=== PATIENT | male | born 1950 | race Caucasian/White ===

== ENCOUNTER 2016-05-07 13:44 | Inpatient (IN) | payer MEDICARE, OTHER ==
[~2016-05-07] VITALS: Ht 182.9 cm; Wt 92.5 kg
[~2016-05-07 13:44] MED LIST: DOXE25CA2 PO; LISI10TA3 PO; METF1000 PO; MORP1TAB24 PO; NOVO7030P2 SQ
[2016-05-07 13:46] VITALS: BP 163/97; PULSE 121; RESP 20; TEMP 97.9; O2SAT 94
[2016-05-07 13:51] VITALS: BP 163/97; PULSE 115; RESP 18; O2SAT 94
[2016-05-07] MEDS ORDERED: SODIUM CHLOR 0.9% 1000 ML INJ 1,000 ML IV ONE (14:00)
[2016-05-07] MEDS ORDERED: SODIUM CHLORIDE 0.9% FLUSH 5 ML FLUSH IVF PRN (14:00)
[2016-05-07 14:17] LABS: BASOPHIL # 0.1 TH/MM3 (0-0.2); BASOPHIL % 1.1 % (0.0-2.0); EOSINOPHIL # 0.1 TH/MM3 (0-0.4); EOSINOPHIL % 0.9 % (0.0-4.0); HEMO FLAGS DIFF FINAL; LYMPH % 18.2 % (9.0-44.0); LYMPHOCYTE # 2.2 TH/MM3 (1.0-4.8); MEAN CELL VOLUME 96.7 FL (80.0-100.0); MEAN CORPUSCULAR HEMOGLOBIN 31.6 PG (27.0-34.0); MEAN CORPUSCULAR HGB CONC 32.6 % (32.0-36.0); MONO % 6.5 % (0.0-8.0); NEUT % 73.3 % (16.0-70.0); PLATELET COUNT 326 TH/MM3 (150-450); RED BLOOD COUNT 4.65 MIL/MM3 (4.50-5.90); RED CELL DISTRIBUTION WIDTH 14.2 % (11.6-17.2); WHITE BLOOD COUNT 12.3 TH/MM3 (4.0-11.0)
--- NOTE | 2016-05-07 14:18 | PD ---
HPI Chief Complaint: Psychiatric Symptoms Time Seen by Provider: 13:50 Travel History International Travel<30 days: No Contact w/Intl Traveler<30days: No Traveled to known affect area: No History of Present Illness HPI Patient is a 66-year-old male who presents to emergency room for psychiatric evaluation. As per patient, he was recently diagnosed with skin cancer and a heart condition. Patient reports that he has not been able to follow-up with the microfilm equipment inspector as he can't afford it. Reports that he is very depressed and has thoughts of hurting himself with no active plans for suicide. Patient denies use of drugs/alcohol. Denies hx of SI attempts in the past. Patient did call his psychiatrist today as he confessed his suicidal ideations to him. Patient's psychiatrist called police and police had patient be brought to ER for psychiatric evaluation. Patient was placed under Ribera act by police officers. PFSH Past Medical History Autoimmune Disease: Yes (RHEUMATOID ARTHRITIS) Bipolar Disorder: Yes Anxiety: Yes Depression: Yes Cardiovascular Problems: Yes High Cholesterol: Yes Diabetes: Yes (INSULIN) Patient Takes Glucophage: Yes Diminished Hearing: No Hypertension: Yes Musculoskeletal: Yes (CHRONIC RIGHT SHOULDER PAIN) Neurologic: Yes (NEUROPATHY) Tetanus Vaccination: Unknown Influenza Vaccination: Yes Past Surgical History Surgical History: No Previous Surgery Social History Alcohol Use: No Tobacco Use: Yes (1 PACK PER DAY) Substance Use: No Allergies-Medications (Allergen,Severity, Reaction): Coded Allergies: Aspirin (Verified Allergy, Severe, RASH & DECREASED BP, 05/07/16) Motrin (Verified Allergy, Severe, DECREASED BLOOD PRESSURE, 05/07/16) Penicillin (Verified Allergy, Severe, PASSED OUT, 05/07/16) Oily Fish (Verified Allergy, Unknown, 05/07/16) Oxycodone (Verified Adverse Reaction, Unknown, NAUSEA/VOMITING, 05/07/16) Pt denies allergies to this medication. States that it makes him feel "stupid". However, this medication was previously added as an allergy in EMR. Reported Meds & Prescriptions Reported Meds & Active Scripts Active Reported Doxepin (Doxepin HCl) 25 Mg Cap 25 Mg PO HS Metformin (Metformin HCl) 1,000 Mg Tab 1,000 Mg PO BIDPC With meals Lisinopril 10 Mg Tab 10 Mg PO DAILY Novolin 70-30 Inj (Insulin Human Isoph/Insulin Regular) 1,000 Unit/10 Ml Vial 50 Units SQ BID Morphine ER (Morphine Sulfate) 15 Mg Tab 15 Mg PO BID Review of Systems General / Constitutional: No: Fever Eyes: No: Visual changes HENT: No: Headaches Cardiovascular: No: Chest Pain or Discomfort Respiratory: No: Shortness of Breath Gastrointestinal: No: Abdominal Pain Genitourinary: No: Dysuria Musculoskeletal: No: Pain Skin: No Rash Neurologic: No: Weakness Psychiatric: Positive: Depression, Suicidal Ideations Endocrine: No: Cold Intolerance, Polydipsia Hematologic/Lymphatic: No: Easy Bruising Physical Exam Narrative GENERAL: nad SKIN: Warm and dry. HEAD: Atraumatic. Normocephalic. ENT: No nasal bleeding or discharge. Mucous membranes pink and moist. NECK: Trachea midline. No JVD. CARDIOVASCULAR: Regular rate and rhythm. No murmur appreciated. RESPIRATORY: No accessory muscle use. Clear to auscultation. Breath sounds equal bilaterally. GASTROINTESTINAL: Abdomen soft, non-tender, nondistended. Hepatic and splenic margins not palpable. MUSCULOSKELETAL: No obvious deformities. No clubbing. No cyanosis. No edema. NEUROLOGICAL: Awake and alert. No obvious cranial nerve deficits. Motor grossly within normal limits. Normal speech. PSYCHIATRIC: Patient is depressed, very anxious on exam Data Data Last Documented VS Vital Signs Date Time Temp Pulse Resp B/P Pulse Ox O2 Delivery O2 Flow Rate FiO2 05/07/16 13:51 115 18 05/07/16 13:51 163/97 94 Room Air 05/07/16 13:46 97.9 Orders Complete Blood Count With Diff (05/07/16 13:50) Comprehensive Metabolic Panel (05/07/16 13:50) Drug Screen, Random Urine (05/07/16 13:50) Iv Access Insert/Monitor (05/07/16 13:50) Psych Screen (05/07/16 13:50) Sodium Chloride 0.9% Flush (Ns Flush) (05/07/16 14:00) Sodium Chlor 0.9% 1000 Ml Inj (Ns 1000 M (05/07/16 14:00) Bedside Glucose DMITRI.AC&HS (05/07/16 15:18) Labs Laboratory Tests Test 05/07/16 13:55 White Blood Count 12.3 TH/MM3 Red Blood Count 4.65 MIL/MM3 Hemoglobin 14.7 GM/DL Hematocrit 45.0 % Mean Corpuscular Volume 96.7 FL Mean Corpuscular Hemoglobin 31.6 PG Mean Corpuscular Hemoglobin 32.6 % Concent Red Cell Distribution Width 14.2 % Platelet Count 326 TH/MM3 Mean Platelet Volume 8.8 FL Neutrophils (%) (Auto) 73.3 % Lymphocytes (%) (Auto) 18.2 % Monocytes (%) (Auto) 6.5 % Eosinophils (%) (Auto) 0.9 % Basophils (%) (Auto) 1.1 % Neutrophils # (Auto) 9.0 TH/MM3 Lymphocytes # (Auto) 2.2 TH/MM3 Monocytes # (Auto) 0.8 TH/MM3 Eosinophils # (Auto) 0.1 TH/MM3 Basophils # (Auto) 0.1 TH/MM3 CBC Comment DIFF FINAL Differential Comment Sodium Level 135 MEQ/L Potassium Level 4.2 MEQ/L Chloride Level 103 MEQ/L Carbon Dioxide Level 21.8 MEQ/L Anion Gap 10 MEQ/L Blood Urea Nitrogen 16 MG/DL Creatinine 1.16 MG/DL Estimat Glomerular Filtration 63 ML/MIN Rate Random Glucose 307 MG/DL Calcium Level 9.1 MG/DL Total Bilirubin 0.6 MG/DL Aspartate Amino Transf 17 U/L (AST/SGOT) Alanine Aminotransferase 26 U/L (ALT/SGPT) Alkaline Phosphatase 71 U/L Total Protein 7.3 GM/DL Albumin 3.5 GM/DL [facility] Medical Decision Making Medical Screen Exam Complete: Yes Emergency Medical Condition: Yes Interpretation(s) Vital Signs Date Time Temp Pulse Resp B/P Pulse Ox O2 Delivery O2 Flow Rate FiO2 05/07/16 13:51 115 18 05/07/16 13:51 115 18 163/97 94 Room Air 05/07/16 13:46 97.9 121 20 163/97 94 Differential Diagnosis depression, anxiety, suicidal idealizations Narrative Course Patient is a 66-year-old male who presents to ER with complaints of increased depression and anxiety. Reports that she was recently diagnosed with cancer and "heart problems" and reports "I have had enough of everything." Patient reports that he feels suicidal with no active plans for suicide. will obtain screening labs Leslie Castro DO May 07, 2016 14:18
[2016-05-07 14:32] LABS: ANION GAP 10 MEQ/L (5-15); AST (GOT) 17 U/L (15-37); BICARBONATE 21.8 MEQ/L (21.0-32.0); BLOOD UREA NITROGEN 16 MG/DL (7-18); CHLORIDE 103 MEQ/L (98-107); GLOMERULAR FILTRATION RATE 63 ML/MIN (>89); POTASSIUM 4.2 MEQ/L (3.5-5.1); SODIUM (NA) 135 MEQ/L (136-145)
[2016-05-07 14:37] LABS: ALKALINE PHOSPHATASE 71 U/L (45-117); ALT (GPT) 26 U/L (12-78); TOTAL BILIRUBIN ADULT 0.6 MG/DL (0.2-1.0)
[2016-05-07 14:48] LABS: AMPHETAMINE, URINE NEG (NEG); BARBITURATES, URINE NEG (NEG); COCAINE, URINE NEG (NEG)
--- NOTE | 2016-05-07 16:22 | PD ---
History of Present Illness Chief Complaint: Psychiatric Symptoms Time Seen by Provider: 16:00 Travel History International Travel<30 Days: No Contact w/Intl Traveler<30days: No Known affected area: No Legal Status Legal Status: Ribera Act History of Present Illness: History of Present Illness 66-year-old male who presents to emergency room under a Ribera act initiated by GIOVANY for psychiatric evaluation. As per ED report the patient called his psychiatrist this morning and reported feeling suicidal. His psychiatrist, Dr. Giron called the police so that the patient could be transported to the ED. Patient is seen in main ED. Awake, alert and oriented. Dressed in hospital attire with appropriate hygiene. Affect is restricted. Speech is clear and logical. Able to engage and answers questions appropriately. Patient does not appear to be responding to internal stimuli and denies any hallucinatory process. Mood is depressed. Reports impaired sleep with multiple awakenings, decreased appetite and low energy. Patient reports suicidal ideation w plan on obtaining a gun from someone he knows. While he does not own a gun he reports he knows where to obtain one. He reports that he feels overwhelmed, hopeless and frustrated with recent medical issues. He was recently dx with skin cancer and just last week he was told he had some cardiac problems and needs to see a lens grinder apprentice. He is also reporting problems with his left knee which is preventing him from doing the things he would like to do and needs to do. He is also reporting increased financial stressors related to medical issues. As per EMR review no previous contact with [facility] [place]. He is receiving psychiatric care with Dr. Giron and reports compliance with current medication. He feels current medication is not helping him. No hx of inpatient psychiatric treatment. He denies any current substance use. PFSH Past Medical History Autoimmune Disease: Yes (RHEUMATOID ARTHRITIS) Bipolar Disorder: Yes Anxiety: Yes Depression: Yes Cardiovascular Problems: Yes High Cholesterol: Yes Diabetes: Yes (INSULIN) Patient Takes Glucophage: Yes Diminished Hearing: No Hypertension: Yes Musculoskeletal: Yes (CHRONIC RIGHT SHOULDER PAIN) Neurologic: Yes (NEUROPATHY) Tetanus Vaccination: Unknown Influenza Vaccination: Yes Past Surgical History Surgical History: No Previous Surgery Psychiatric History Psychiatric History Hx Psychiatric Treatment: No hx of inpatietn tx. Began seeing a psychiatris years ago in [place]. Has been a patietn of Dr. Giron x 1 and 1/2 year No hx of suicide attempts. History of Inpatient Treatment: No Guns or firearms in home: No Social History Born [place] 4 years. Was x 40 years. has 3 children out of the state. Little contact with them. Retired. Worked as a rolloff truck driver. Hx Alcohol Use: No Hx Tobacco Use: Yes (1 PACK PER DAY) Hx Substance Use: No Substance Use Type: Alcohol (In remote past. Quit 30 years ago.) Hx of Substance Use Treatment: No Family Psychiatric History None reported Allergies-Medications (Allergen,Severity, Reaction): Coded Allergies: Aspirin (Verified Allergy, Severe, RASH & DECREASED BP, 05/07/16) Motrin (Verified Allergy, Severe, DECREASED BLOOD PRESSURE, 05/07/16) Penicillin (Verified Allergy, Severe, PASSED OUT, 05/07/16) Oily Fish (Verified Allergy, Unknown, 05/07/16) Oxycodone (Verified Adverse Reaction, Unknown, NAUSEA/VOMITING, 05/07/16) Pt denies allergies to this medication. States that it makes him feel "stupid". However, this medication was previously added as an allergy in EMR. Reported Meds & Prescriptions Reported Meds & Active Scripts Active Reported Doxepin (Doxepin HCl) 25 Mg Cap 25 Mg PO HS Metformin (Metformin HCl) 1,000 Mg Tab 1,000 Mg PO BIDPC With meals Lisinopril 10 Mg Tab 10 Mg PO DAILY Novolin 70-30 Inj (Insulin Human Isoph/Insulin Regular) 1,000 Unit/10 Ml Vial 50 Units SQ BID Morphine ER (Morphine Sulfate) 15 Mg Tab 15 Mg PO BID Review of Systems Constitutional: COMPLAINS OF: Fatigue Endocrine: COMPLAINS OF: Heat/cold intolerance (feet are always cold) Eyes: DENIES: Blurred vision, Diplopia, Eye inflammation, Eye pain, Vision loss , Photosensitivity, Double Vision Ears, nose, mouth, throat: DENIES: Tinnitus, Hearing loss, Vertigo, Nasal discharge, Oral lesions, Throat pain, Hoarseness, Ear Pain, Running Nose, Epistaxis, Sinus Pain, Toothache, Odynophagia Respiratory: DENIES: Apneas, Cough, Snoring, Wheezing, Hemoptysis, Sputum production, Shortness of breath Cardiovascular: DENIES: Chest pain, Palpitations, Syncope, Dyspnea on Exertion , PND, Lower Extremity Edema, Orthopnea, Claudication Genitourinary: DENIES: Sexual dysfunction, Urinary frequency, Urinary incontinence, Urgency, Hematuria, Dysuria, Nocturia, Penile Discharge, Testicular Pain, Testicular Swelling Musculoskeletal: DENIES: Joint pain, Muscle aches, Stiffness, Joint Swelling, Back pain, Neck pain Integumentary: DENIES: Abnormal pigmentation, Nail changes, Pruritus, Rash Hematologic/lymphatic: DENIES: Bruising, Lymphadenopathy Immunologic/allergic: DENIES: Eczema, Urticaria Neurologic: DENIES: Abnormal gait, Headache, Localized weakness, Paresthesias, Seizures, Speech Problems, Tremor, Poor Balance Psychiatric: COMPLAINS OF: Depression, Suicidal Ideation Exam Alert: Yes [place]: Person (ox4) Mood: Depressed Affect: Restricted, Other (tearful) Speech: Clear, Logical Eye Contact: Normal Memory Intact: Comment (no gross impairment) Hallucinations: Other (negative) Delusions: No Suicidal: Ideation (to obtain a gun from a friend) Homicidal: Ideation (deneis) Insight/Judgement Fair. Not impaired MDM Medical Decision Making Medical Record Reviewed: Yes Assessment/Plan 66 year old male with hx of depression under a BA for suicidal ideation. He has recently been diagnosed with several medical conditions including heart problems, skin cancer and problems with his left knee. He feels hopeless regarding his future and is reporting suicidal ideation with intent to obtain a gun to shoot himself. At this time patient in need of increased level of care in inpatient psychiatric setting. Remains on BA Orders Complete Blood Count With Diff (05/07/16 13:50) Comprehensive Metabolic Panel (05/07/16 13:50) Drug Screen, Random Urine (05/07/16 13:50) Iv Access Insert/Monitor (05/07/16 13:50) Psych Screen (05/07/16 13:50) Sodium Chloride 0.9% Flush (Ns Flush) (05/07/16 14:00) Sodium Chlor 0.9% 1000 Ml Inj (Ns 1000 M (05/07/16 14:00) Bedside Glucose DMITRI.AC&HS (05/07/16 15:18) Results Vital Signs Date Time Temp Pulse Resp B/P Pulse Ox O2 Delivery O2 Flow Rate FiO2 05/07/16 13:51 115 18 05/07/16 13:51 115 18 163/97 94 Room Air 05/07/16 13:46 97.9 121 20 163/97 94 Laboratory Tests Test 05/07/16 05/07/16 13:55 14:00 White Blood Count 12.3 Red Blood Count 4.65 Hemoglobin 14.7 Hematocrit 45.0 Mean Corpuscular Volume 96.7 Mean Corpuscular Hemoglobin 31.6 Mean Corpuscular Hemoglobin 32.6 Concent Red Cell Distribution Width 14.2 Platelet Count 326 Mean Platelet Volume 8.8 Neutrophils (%) (Auto) 73.3 Lymphocytes (%) (Auto) 18.2 Monocytes (%) (Auto) 6.5 Eosinophils (%) (Auto) 0.9 Basophils (%) (Auto) 1.1 Neutrophils # (Auto) 9.0 Lymphocytes # (Auto) 2.2 Monocytes # (Auto) 0.8 Eosinophils # (Auto) 0.1 Basophils # (Auto) 0.1 CBC Comment DIFF FINAL Differential Comment Sodium Level 135 Potassium Level 4.2 Chloride Level 103 Carbon Dioxide Level 21.8 Anion Gap 10 Blood Urea Nitrogen 16 Creatinine 1.16 Estimat Glomerular Filtration 63 Rate Random Glucose 307 Calcium Level 9.1 Total Bilirubin 0.6 Aspartate Amino Transf 17 (AST/SGOT) Alanine Aminotransferase 26 (ALT/SGPT) Alkaline Phosphatase 71 Total Protein 7.3 Albumin 3.5 Urine Opiates Screen POS Urine Barbiturates Screen NEG Urine Amphetamines Screen NEG Urine Benzodiazepines Screen NEG Urine Cocaine Screen NEG Urine Cannabinoids Screen NEG Diagnosis Primary Impression: Depression Admitting Information Admitting Physician Requests: Admit (Dr. Oviedo) Problem Qualifiers Primary Impression: Depression Qualified Code: F33.1 - Moderate episode of recurrent major depressive disorder Yudy Shay May 07, 2016 16:22
[2016-05-07 16:53] VITALS: BP 140/90; PULSE 88; RESP 20; O2SAT 97
[2016-05-07] MEDS ORDERED: MAGNESIUM HYDROXIDE SUSP 30 ML CUP PO PRN (17:15)
[2016-05-07] MEDS ORDERED: ALUMINUM/MAGNESIUM/SIMETH 30 ML CUP PO PRN (17:15)
[2016-05-07] MEDS: INSULIN HUMAN NPH/R 70/30 1,000 UNITS/10 ML VIAL SQ SCH (17:48)
[2016-05-07] MEDS: metFORMIN HCL 500 MG TAB PO SCH (18:18)
[2016-05-07] MEDS: DOXEPIN HCL 25 MG CAP PO SCH (21:12)
[2016-05-07] MEDS: MORPHINE SULFATE 15 MG CONTROLLED RELEASE TAB PO SCH (22:58)
[2016-05-07 23:45] VITALS: BP 160/86; PULSE 127; RESP 15; TEMP 97.4; O2SAT 95
[2016-05-08] VITALS: BP 163/87; PULSE 88; RESP 20; TEMP 97.6
[2016-05-08 06:21] VITALS: BP 95/51; PULSE 71; RESP 16; TEMP 97.8; O2SAT 93
[2016-05-08] MEDS: INSULIN HUMAN NPH/R 70/30 1,000 UNITS/10 ML VIAL SQ SCH ×2 (07:00→16:00)
[2016-05-08 07:56] LABS: ANION GAP 9 MEQ/L (5-15); BICARBONATE 26.5 MEQ/L (21.0-32.0); BLOOD UREA NITROGEN 13 MG/DL (7-18); CHLORIDE 104 MEQ/L (98-107); GLOMERULAR FILTRATION RATE 88 ML/MIN (>89); LDL CHOLESTEROL 102 MG/DL (0-99); POTASSIUM 4.1 MEQ/L (3.5-5.1); SODIUM (NA) 139 MEQ/L (136-145)
[2016-05-08] MEDS: MORPHINE SULFATE 15 MG CONTROLLED RELEASE TAB PO SCH ×2 (08:50→21:04)
[2016-05-08] MEDS: LISINOPRIL 10 MG TAB PO SCH (08:50)
[2016-05-08] MEDS: metFORMIN HCL 500 MG TAB PO SCH ×2 (08:50→17:48)
[2016-05-08 10:53] LABS: HEMOGLOBIN A1a 0.8 %; HEMOGLOBIN A1b 2.1 %; HEMOGLOBIN Ao 83.9 %; HEMOGLOBIN LA1C 1.6 %; HEMOGLOBIN P3 3.9 %
--- NOTE | 2016-05-08 16:20 | MH ---
cc: TEDDY GARCES M.D. DATE OF ADMISSION 05/07/2016 PRESENTING CHIEF COMPLAINT AND HISTORY OF PRESENT ILLNESS: This 66-year-old white male was brought to the emergency room of this hospital under the Ribera Act because of increasing depression and suicidal thoughts. In the emergency room he was evaluated by psychiatric screener and indicated that he has been under the care of Dr. Giron. Recently he has been quite distressed by multiple medical issues and had entertained thoughts of getting a gun and shooting himself. He called his psychiatrist and the police were notified and he was brought in here under the Ribera Act. Prior to the evaluation the case was discussed with the nursing staff who indicated that he has been calm and cooperative. He has not exhibited any aggressive or self destructive behavior nor has he made any attempts of harm to self or others. At the time of this evaluation Mr. Nguyen was pleasant and cooperative. When asked about his understanding of the reason for this hospitalization he responded "lately I have been having some medical issues. They did a skin biopsy and they said it was cancer. My left knee has been bothering me. Recently the precinct police sergeant said there was something wrong with the heart. I got mad and called my psychiatrist. Dr. Giron was not available, somebody was covering for him and he called the family welfare social work professor and they brought me here". When asked as to how he felt about his suicidal thoughts he responded "it was dumb. I was not going to hurt myself, I was just mad and upset. I have never done anything like this in my life". He went on to say that he has felt depressed off an on for many years. In addition he has also experiencing "mood swings" which he was quite vague about when asked to elaborate, "sometimes I get really mad and sometimes I am happy but mostly I am irritable and down". He stated that he has been having difficulty falling asleep and requested that he be continued on the Seroquel and doxepin. He further stated that he was started on Lamictal by Dr. Giron. He could not recall the dose of these medications but insisted that without his medications he is not able to sleep. He denied any changes in his appetite but did acknowledge a decline in his memory and concentration. He could not give history that would indicate either hypomanic or manic episodes. He denied any recent alcohol or drug abuse but does have a history of alcohol abuse in his 40s. PAST PSYCHIATRIC HISTORY His first psychiatric intervention was about four years ago when he stated seeing Dr. Kirkland at [facility]. For some time he lived in [place] where he was also under psychiatric care. Currently he is under the care of Dr. Ladarius Giron and is on doxepin, Seroquel and Lamictal, the dose of which he could not recall. He denied any previous psychiatric hospitalization. PAST MEDICAL HISTORY He has a history of: 1. Rheumatoid arthritis. 2. Diabetes. 3. Chronic right shoulder pain. 4. Neuropathy. 5. Hypertension. 6. Unspecified cardiac problem. ALLERGIES HE IS ALLERGIC TO ASPIRIN, MOTRIN, PENICILLIN, FISH OIL, OXYCODONE. MEDICATIONS His current medications as per the records are: 1. Doxepin 25 milligrams q.h.s. 2. Metformin 1000 milligrams twice a day after meals. 3. Lisinopril 10 milligrams daily. 4. Novolin 70/30 50 units subcutaneous twice a day. 5. Morphine 15 milligrams twice a day. FAMILY HISTORY His parents when he was 5 years old. He lived with his father. His mother was not much involved in his life. He has one brother and one sister. His brother is a substance abuser. He denied any knowledge of psychiatric illness in his family. PERSONAL AND SOCIAL HISTORY He dropped out of school in 9th grade. 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 He started abusing alcohol in his 20s and in his 40s he quit drinking. He denied any drug abuse. He was four times. His first marriage lasted one year and ended in , the second marriage also ended in after one year and his last marriage lasted only for a few months and ended with the of his . He has been to his current for 40 years but they have been for the past four years. He has three daughters. He does not have a good relationship with all but one of his daughters. He has been incarcerated several times for "fighting". He was imprisoned once on charges of attempted robbery and kidnapping. He served five years but was "pardoned". CLINICAL OBSERVATION AND MENTAL STATUS EXAMINATION At the time of this evaluation Mr. Nguyen presented as a casually dressed, reasonably well-groomed white male who looked his stated age. He walked in to the office using a walker and complained of pain in his left knee. He was overall pleasant and cooperative with this interviewer and volunteered information spontaneously. His responses to questions were relevant and logical. No overt anger or hostility was noticed. No bizarre behavior or mannerisms were noticed. He frequently expressed remorse at his recent suicidal statements "it was stupid. It was dumb. I did not mean it". Affect: Appropriate, somewhat blunted. Subjectively, he described his mood as "I am feeling down". Thought process did not reveal any looseness of association or flight of ideas. No tejinder delusions, auditory or visual hallucinations were noticed or reported. As mentioned he denied active suicidal or homicidal ideations or intent at this time. He denied any previous suicide attempts. Cognitive Functions: He was alert, oriented to time, place, person and situation. Memory: Immediate, he could do 5 digits forward, 4 digits backward. Recent, he could recall 3 out of 3 objects after ten minutes. Remote, he could recall presidents up to President Luis Antonio. His attention and concentration was somewhat impaired. He could not do serial 7s and attributed this to his poor academic background. His judgment and insight were felt to be good. REVIEW OF SYSTEMS He denied diarrhea, vomiting or abdominal pain. He denied dysuria, hematuria or frequency. He denied any chest pain, palpitations or dyspnea on exertion. He denied muscle weakness, numbness or history of seizures. PHYSICAL EXAMINATION The physical examination was not done as this has been done in the emergency room. IMPRESSION Diagnostic impression: AXIS I: Major depressive disorder moderate, recurrent. Possible bipolar affective disorder, depressed. Chronic alcohol abuse under remission. AXIS II: Mixed personality traits with features of antisocial personality disorder, borderline personality disorder. AXIS III: Rheumatoid arthritis, hypertension, unspecified cardiac issue, hypertension, peripheral neuropathy, skin cancer, chronic back/joint pains. AXIS IV: Severity of psychosocial stressors moderate ie chronic psychiatric illness, chronic medical issues. AXIS V: Current Global Assessment of Functioning score 40. FORMULATION AND TREATMENT PLAN Based on this evaluation and the background information available to me at this time, Mr. Nguyen is experiencing a moderate degree of depression as manifested by persistent feelings of sadness, neurovegetative symptoms. His depression is compounded by above identified psychosocial stressors. Based on the current evaluation the diagnosis of bipolar affective disorder could not be established. He is currently on doxepin, Seroquel and Lamictal, the doses of which he does not recall but insists on continuing on them as according to him without these medications he cannot sleep. As such he will be maintained on it. He denies any knowledge of ever being on antidepressants. Consideration will be given to adding an antidepressant. The above mentioned issues will be further explored and addressed in individual psychotherapy sessions. He will participate in various other unit activities, ie occupational therapy, recreational therapy, group therapy. Medical consultation will be requested. His identified problems: 1. Depression. 2. Current psychosocial stressors. His assets are: 1. He is verbal. 2. Access to health care. His estimated length of stay is five to seven [address]. Mena will resume the care and the case is being transferred to his service. MD BENJAMIN Yu/KK /3:24 PM /3:42 PM
[2016-05-08 19:14] VITALS: BP 136/80; PULSE 78; RESP 16; TEMP 98.6; O2SAT 93
[2016-05-08] MEDS: QUEtiapine FUMARATE 100 MG TAB PO SCH (21:04)
[2016-05-08] MEDS: lamoTRIgine 25 MG TAB PO SCH (21:04)
[2016-05-08] MEDS: DOXEPIN HCL 25 MG CAP PO SCH (21:04)
[2016-05-09 05:35] VITALS: BP 152/73; PULSE 95; RESP 15; TEMP 98; O2SAT 94
[2016-05-09] MEDS: INSULIN HUMAN NPH/R 70/30 1,000 UNITS/10 ML VIAL SQ SCH ×2 (06:27→16:43)
[2016-05-09] MEDS: lamoTRIgine 25 MG TAB PO SCH ×2 (08:51→20:37)
[2016-05-09] MEDS: MORPHINE SULFATE 15 MG CONTROLLED RELEASE TAB PO SCH ×2 (08:51→20:37)
[2016-05-09] MEDS: metFORMIN HCL 500 MG TAB PO SCH ×2 (08:51→17:15)
[2016-05-09] MEDS: LISINOPRIL 10 MG TAB PO SCH (08:51)
--- NOTE | 2016-05-09 15:37 | HHI.PYPN ---
Subjective Remarks Dr. delacruz is on a vacation.. I'm assuming care of this patient patient alert active calm and cooperative lives by himself his some extended family support. Has had significant medical issues recently to appointment became quite depressed and suicidal. He does deny it at the present time. Patient is a client of for healthcare does see Dr. Durand more on the outpatient side. For now will be adjusted medications Bactrim as outpatient scheduled doses of medication will be adjusting the gabapentin, Lamictal, and doxepin Review of Systems Except as stated in HPI: all other systems reviewed are Neg Objective Alert: Yes [place]: Person (ox4) Mood: Depressed Affect: Restricted, Other (tearful) Memory Intact: Comment (no gross impairment) Hallucinations: Other (negative) Delusions: No Delusion Type: Other (none noted) Suicidal: Ideation (to obtain a gun from a friend) Homicidal: Ideation (deneis) Insight/Judgement Poor Vitals/IOs Vital Signs Date Time Temp Pulse Resp B/P Pulse Ox O2 Delivery O2 Flow Rate FiO2 05/09/16 05:35 98.0 95 15 152/73 94 05/07/16 16:53 Room Air Assessment & Plan Problem List: (1) Major depressive disorder, recurrent, moderate ICD Code: F33.1 Assessment & Plan Estimated LOS: days patient continues depressed, though, cooperative, she medication adjustments above Justification for Cont. Inpt. At this time patient would decompensate if placed at a lower level of care Discharge Planning To be determined Ashok Mena MD May 09, 2016 15:37
[2016-05-09] MEDS: GABAPENTIN 300 MG CAP PO SCH (17:15)
[2016-05-09 19:56] VITALS: BP 120/72; PULSE 94; RESP 16; TEMP 98.1; O2SAT 95
[2016-05-09] MEDS: DOXEPIN HCL 10 MG CAP PO SCH (20:37)
[2016-05-09] MEDS: lamoTRIgine 100 MG TAB PO SCH (20:37)
[2016-05-09] MEDS: QUEtiapine FUMARATE 100 MG TAB PO SCH (20:37)
[2016-05-09] MEDS: DOXEPIN HCL 50 MG CAP PO SCH (21:11)
[2016-05-10 05:39] VITALS: BP 91/56; PULSE 93; RESP 18; TEMP 97.2; O2SAT 100
[2016-05-10] MEDS: INSULIN HUMAN NPH/R 70/30 1,000 UNITS/10 ML VIAL SQ SCH ×3 (06:34→16:00)
[2016-05-10] MEDS: GABAPENTIN 300 MG CAP PO SCH ×3 (08:56→17:22)
[2016-05-10] MEDS: lamoTRIgine 25 MG TAB PO SCH ×2 (08:56→20:35)
[2016-05-10] MEDS: MORPHINE SULFATE 15 MG CONTROLLED RELEASE TAB PO SCH ×2 (08:57→20:35)
[2016-05-10] MEDS: metFORMIN HCL 500 MG TAB PO SCH ×2 (08:57→17:22)
[2016-05-10] MEDS: lamoTRIgine 100 MG TAB PO SCH ×2 (08:57→20:35)
[2016-05-10] MEDS: LISINOPRIL 10 MG TAB PO SCH (08:59)
--- NOTE | 2016-05-10 10:15 | HHI.PYPN ---
Subjective Remarks Patient seen today in day room with floor staff, chart review, patient continues to show lifting of his depression. Is out in the day room more often , compliant medications. Patient did request a nicotine patch will offer that today. At this time patient is showing improvements the pulmonary feel the has capacity to sign voluntary thus I'll lift Ribera act will consider discharge within 1-2 days Review of Systems Except as stated in HPI: all other systems reviewed are Neg Objective Alert: Yes [place]: Person (ox4) Mood: Depressed Affect: Restricted, Other (tearful) Memory Intact: Comment (no gross impairment) Hallucinations: Other (negative) Delusions: No Delusion Type: Other (none noted) Suicidal: Ideation (to obtain a gun from a friend) Homicidal: Ideation (deneis) Insight/Judgement Poor to fair Vitals/IOs Vital Signs Date Time Temp Pulse Resp B/P Pulse Ox O2 Delivery O2 Flow Rate FiO2 05/10/16 05:39 97.2 93 18 91/56 100 05/07/16 16:53 Room Air Assessment & Plan Problem List: (1) Major depressive disorder, recurrent, moderate ICD Code: F33.1 Assessment & Plan Estimated LOS: days patient's depression slowly lifting, compliant medications , please see medication adjustments and orders above Justification for Cont. Inpt. At this time patient would decompensate if placed in the lower level of care Discharge Planning To be determined Ashok Mena MD May 10, 2016 10:15
[2016-05-10] MEDS: NICOTINE 14 MG/24 HR PATCH T-DERMAL SCH (11:00)
[2016-05-10] MEDS: DOXEPIN HCL 50 MG CAP PO SCH (20:34)
[2016-05-10] MEDS: QUEtiapine FUMARATE 100 MG TAB PO SCH (20:35)
[2016-05-10] MEDS: DOXEPIN HCL 10 MG CAP PO SCH (20:35)
[2016-05-10] MEDS ORDERED: REMOVE OLD NICODERM (NICOTINE) PATCH TD SCH (21:00)
[2016-05-10 21:14] VITALS: BP 137/74; PULSE 98; RESP 18; TEMP 98.5; O2SAT 97
[2016-05-11 06:04] VITALS: BP 108/70; PULSE 86; RESP 18; TEMP 97.4; O2SAT 94
[2016-05-11] MEDS: INSULIN HUMAN NPH/R 70/30 1,000 UNITS/10 ML VIAL SQ SCH (06:21)
[2016-05-11] MEDS: GABAPENTIN 300 MG CAP PO SCH ×2 (08:24→13:33)
[2016-05-11] MEDS: lamoTRIgine 25 MG TAB PO SCH (08:24)
[2016-05-11] MEDS: lamoTRIgine 100 MG TAB PO SCH (08:24)
[2016-05-11] MEDS: MORPHINE SULFATE 15 MG CONTROLLED RELEASE TAB PO SCH (08:25)
[2016-05-11] MEDS: metFORMIN HCL 500 MG TAB PO SCH (08:25)
[2016-05-11] MEDS: LISINOPRIL 10 MG TAB PO SCH (08:28)
[2016-05-11] MEDS: NICOTINE 14 MG/24 HR PATCH T-DERMAL SCH (08:28)
[2016-05-11] MEDS ORDERED: NEUR600T PO (12:36)
[2016-05-11] MEDS ORDERED: LAMO150 PO (12:36)
[2016-05-11] MEDS ORDERED: METF500 PO (12:36)
[2016-05-11] MEDS ORDERED: MORP1TAB24 PO (12:36)
[2016-05-11] MEDS ORDERED: NOVO7030P2 SQ (12:36)
[2016-05-11] MEDS ORDERED: DOXE50CA3 PO (12:36)
[2016-05-11] MEDS ORDERED: DOXE10CA PO (12:36)
[2016-05-11] MEDS ORDERED: QUET1TAB8 PO (12:36)
[2016-05-11] MEDS ORDERED: LISI10TA3 PO (12:36)
--- NOTE | 2016-05-11 12:42 | HHI.DS ---
Psychiatry Discharge Summary Inpatient Psychiatric care?: Yes Advance Directive: No Reason Not Provided: DECLINED Mental Health AdvanceDirective: No Health Care Proxy: No Admission Admission Date May 07, 2016 at 17:18 Admission Diagnosis: (1) Major depressive disorder, recurrent, moderate ICD Code: F33.1 Brief History Please see H&P dictated by Dr. delacruz on admission Tobacco Use In Past 30 Days: 5 or More Cigarettes/Day Alcohol Use: Never Hospital Course Patient's course was uneventful, remain compliant with medications from admission. I assumed care for this patient on 05/09. Patient bedtime denies suicidality homicidality voices or visions. Is remain consistent with his denial of suicidality, his mood is markedly improved he is euthymic with good range intensity of his affect. He does have appropriate follow-up mental health care with Dr. Ladarius Giron through [facility]. He does wish to be discharge at the present time. I feel he has reached maximum benefit of this hospitalization thus patient be discharged with 1 month worth of medications. To follow-up as above Results Blood Pressure 108 / 70 Vital Signs Date Time Temp Pulse Resp B/P Pulse Ox O2 Delivery O2 Flow Rate FiO2 05/11/16 06:04 97.4 86 18 108/70 94 05/07/16 16:53 Room Air Laboratory Results Test 05/08/16 07:07 Hemoglobin A1c 7.0 % (4.3-6.0) Triglycerides Level 169 MG/DL (42-150) Cholesterol Level 191 MG/DL (120-200) LDL Cholesterol 102 MG/DL (0-99) HDL Cholesterol 55.0 MG/DL (40.0-60.0) Summary of Procedures None done Pending results at discharge: No Medications # of Antipsychotic meds at D/C: 1 Approp Antipsych med options 1 - Minimum of three failed multiple trials of monotherapy. 2 - Documented plan to taper to monotherapy due to previous use of multiple meds OR cross-taper in progress at D/C. 3 - Documentation of augmentation of Clozapine. 4 - Justification other than those listed in allowable values 1-3, document here : Discharge Discharge Date: May 11, 2016 Discharge Diagnosis: (1) Major depressive disorder, recurrent, moderate Diagnosis: Principal ICD Code: F33.1 Mental Status Exam at Disch Alert oriented calm cooperative white male he has normoactive, though using walker to assist due to his chronic pain. His mood is euthymic affixes good range intensity, speech rate and rhythm are within normal limits no formal thought disorders. No auditory or visual hallucinations no delusions noted insight and judgment is poor to fair cognition grossly intact Pt Condition on Discharge: Stable Discharge Disposition: Discharge Home Discharge Instructions Diet Instructions: Diabetic Diet Additional Diet Instructions: 1800-calorie diabetic diet Activities you can perform: Weight Bearing as Joaquin Scheduled Appointment: [facility] Discharge Time > 30 minutes Discharge/Advance Care Plan Health Problems: (1) Major depressive disorder, recurrent, moderate Goals to promote your health * To prevent worsening of your condition and complications * To maintain your health at the optimal level Directions to meet your goals Take your medications as prescribed Follow your dietary instruction Follow activity as directed Keep your appointments as scheduled Take your immunizations and boosters as scheduled If your symptoms worsen call your PCP, if no PCP go to Urgent Care Center or Emergency Room For 31/10 questions related to your inpatient stay or results of tests pending at discharge, please contact Dr. Ashok Mena at Smoking is Dangerous to Your Health. Avoid second hand smoking Ashok Mena MD May 11, 2016 12:42
== END 2016-05-11 13:51 | disposition home or self-care (01) | DRG 885 ==
LOC: NEPC 13:44 → NEDA 17:18 → H260 18:59
PROVIDERS: ADMIT Psychiatry & Neurology Psychiatry; ATTEND Psychiatry & Neurology Psychiatry
DX: F33.1 Major depressive disorder, recurrent, moderate (principal); G62.9 Polyneuropathy, unspecified; R45.851 Suicidal ideations; I10 Essential (primary) hypertension; F10.10 Alcohol abuse, uncomplicated; F60.3 Borderline personality disorder; F60.2 Antisocial personality disorder; M06.9 Rheumatoid arthritis, unspecified; E11.9 Type 2 diabetes mellitus without complications; C44.90 Unspecified malignant neoplasm of skin, unspecified; E78.00 Pure hypercholesterolemia, unspecified; F17.200 Nicotine dependence, unspecified, uncomplicated
CPT/HCPCS: 80048; 80053; 80061; 80307; 82948; 83036; 85025; 96360; J1815; J7030

== ENCOUNTER 2016-06-28 08:39 | Emergency (ER) | payer MEDICARE, OTHER ==
[~2016-06-28] VITALS: Ht 182.9 cm; Wt 93.5 kg
[~2016-06-28 08:39] MED LIST changes: +DOXE10CA PO; +DOXE50CA3 PO; +LAMO150 PO; -METF1000 PO; +METF500 PO; +NEUR600T PO; +QUET1TAB8 PO
[2016-06-28 08:42] VITALS: BP 127/84; PULSE 128; RESP 18; TEMP 97.8; O2SAT 96
--- NOTE | 2016-06-28 09:27 | PD ---
HPI Chief Complaint: Foreign Body Time Seen by Provider: 09:07 Travel History International Travel<30 days: No Contact w/Intl Traveler<30days: No Traveled to known affect area: No History of Present Illness HPI This patient complains of painful and difficult swallowing. Duration 4 days. He's not been able to eat any solid food over that period of time. He has to struggle to get liquids down and has pain when he does so. It started when he was eating a hot dog and macaroni and cheese. He felt like he got something stuck in his throat. He went today to have an outpatient stress test but when he reported his symptoms they sent him to the emergency room instead. Symptoms are moderately severe. No alleviating factors. Denies history of ever having endoscopy or esophageal stricture. PFSH Past Medical History Autoimmune Disease: Yes (RHEUMATOID ARTHRITIS) Bipolar Disorder: Yes Anxiety: Yes Depression: Yes Cancer: Yes (Pt states he's been diagnoised with cancer in March) High Cholesterol: Yes Chemotherapy: No Diabetes: Yes Patient Takes Glucophage: Yes (06/27/16) Diminished Hearing: No Endocrine: Yes Genitourinary: No Headaches: No Hypertension: Yes Musculoskeletal: Yes (CHRONIC RIGHT SHOULDER PAIN/LEFT KNEE PAIN) Neurologic: Yes (NEUROPATHY) Psychiatric: Yes Reproductive: No Respiratory: No Radiation Therapy: No Social History Alcohol Use: No Tobacco Use: Yes () Substance Use: No Allergies-Medications (Allergen,Severity, Reaction): Coded Allergies: Aspirin (Verified Allergy, Severe, RASH & DECREASED BP, 06/28/16) Motrin (Verified Allergy, Severe, DECREASED BLOOD PRESSURE, 06/28/16) Penicillin (Verified Allergy, Severe, PASSED OUT, 06/28/16) Oily Fish (Verified Allergy, Unknown, 06/28/16) Oxycodone (Verified Adverse Reaction, Unknown, NAUSEA/VOMITING, 06/28/16) Pt denies allergies to this medication. States that it makes him feel "stupid". However, this medication was previously added as an allergy in EMR. Reported Meds & Prescriptions Reported Meds & Active Scripts Active Lamictal (Lamotrigine) 150 Mg Tab 150 Mg PO BID Quetiapine (Quetiapine Fumarate) 100 Mg Tab 100 Mg PO HS Glucophage (Metformin HCl) 500 Mg Tab 1,000 Mg PO 2 PO BIDPC Lisinopril 10 Mg Tab 10 Mg PO DAILY Novolin 70-30 Inj (Insulin Human Isoph/Insulin Regular) 1,000 Unit/10 Ml Vial 50 Units SQ BIDAC 30 Days Neurontin (Gabapentin) 600 Mg Tab 600 Mg PO TID Doxepin (Doxepin HCl) 50 Mg Cap 150 Mg PO HS Doxepin (Doxepin HCl) 10 Mg Cap 10 Mg PO HS Reported Morphine ER (Morphine Sulfate) 15 Mg Tab 15 Mg PO BID Review of Systems General / Constitutional: No: Fever Eyes: No: Visual changes HENT: No: Headaches Cardiovascular: Positive: Tachycardia, No: Chest Pain or Discomfort Respiratory: No: Shortness of Breath Gastrointestinal: Positive: Dysphagia, Other (odynophagia), No: Abdominal Pain Genitourinary: No: Dysuria Musculoskeletal: No: Pain Skin: No Rash Neurologic: No: Weakness Psychiatric: No: Depression Endocrine: No: Polydipsia Hematologic/Lymphatic: No: Easy Bruising Physical Exam Narrative GENERAL: Well-nourished, well-developed patient in no apparent distress. SKIN: Warm and dry. HEAD: Atraumatic. Normocephalic. EYES: Pupils equal and round. No scleral icterus. No injection or drainage. ENT: No nasal bleeding or discharge. Mucous membranes pink and very dry . NECK: Trachea midline. No JVD. CARDIOVASCULAR: Regular rate and rhythm. No murmur appreciated. Tachycardic at 128 RESPIRATORY: No accessory muscle use. Clear to auscultation. Breath sounds equal bilaterally. GASTROINTESTINAL: Abdomen soft, non-tender, nondistended. Hepatic and splenic margins not palpable. MUSCULOSKELETAL: No obvious deformities. No clubbing. No cyanosis. No edema. NEUROLOGICAL: Awake and alert. No obvious cranial nerve deficits. Motor grossly within normal limits. Normal speech. PSYCHIATRIC: Appropriate mood and affect; insight and judgment normal. Data Data Last Documented VS Vital Signs Date Time Temp Pulse Resp B/P Pulse Ox O2 Delivery O2 Flow Rate FiO2 06/28/16 11:53 80 20 115/69 95 Room Air 06/28/16 08:42 97.8 Orders Iv Access Insert/Monitor (06/28/16 09:20) Complete Blood Count With Diff (06/28/16 09:20) Comprehensive Metabolic Panel (06/28/16 09:20) Lipase (06/28/16 09:20) Sodium Chlor 0.9% 1000 Ml Inj (Ns 1000 M (06/28/16 09:30) Ondansetron Inj (Zofran Inj) (06/28/16 09:30) Glucagon Inj (Glucagon Inj) (06/28/16 09:30) Sodium Chlor 0.9% 1000 Ml Inj (Ns 1000 M (06/28/16 12:00) Labs Laboratory Tests Test 06/28/16 09:50 White Blood Count 14.5 TH/MM3 Red Blood Count 4.55 MIL/MM3 Hemoglobin 14.6 GM/DL Hematocrit 44.1 % Mean Corpuscular Volume 96.9 FL Mean Corpuscular Hemoglobin 32.0 PG Mean Corpuscular Hemoglobin 33.1 % Concent Red Cell Distribution Width 14.0 % Platelet Count 267 TH/MM3 Mean Platelet Volume 9.1 FL Neutrophils (%) (Auto) 79.4 % Lymphocytes (%) (Auto) 12.4 % Monocytes (%) (Auto) 6.5 % Eosinophils (%) (Auto) 1.0 % Basophils (%) (Auto) 0.7 % Neutrophils # (Auto) 11.5 TH/MM3 Lymphocytes # (Auto) 1.8 TH/MM3 Monocytes # (Auto) 0.9 TH/MM3 Eosinophils # (Auto) 0.1 TH/MM3 Basophils # (Auto) 0.1 TH/MM3 CBC Comment DIFF FINAL Differential Comment Sodium Level 139 MEQ/L Potassium Level 3.7 MEQ/L Chloride Level 105 MEQ/L Carbon Dioxide Level 26.1 MEQ/L Anion Gap 8 MEQ/L Blood Urea Nitrogen 12 MG/DL Creatinine 0.88 MG/DL Estimat Glomerular Filtration 86 ML/MIN Rate Random Glucose 131 MG/DL Calcium Level 9.5 MG/DL Total Bilirubin 0.8 MG/DL Aspartate Amino Transf 18 U/L (AST/SGOT) Alanine Aminotransferase 30 U/L (ALT/SGPT) Alkaline Phosphatase 77 U/L Total Protein 7.9 GM/DL Albumin 3.9 GM/DL Lipase 63 U/L [facility] Medical Decision Making Medical Screen Exam Complete: Yes Emergency Medical Condition: Yes Medical Record Reviewed: Yes Differential Diagnosis Esophageal foreign body, esophageal stricture, dehydration Narrative Course I have reviewed the patient's electronic medical record. Patient was last here 2 months ago for psychiatric evaluation IV placed I gave him 1 L normal saline IV and 4 mg IV Zofran I gave him a milligram of IV glucagon CBC is normal Metabolic profile is normal LFTs are normal Lipase is normal I had him drink some water while here in the emergency room. It caused a lot of pain in the lower chest region just above the epigastric region. He was able to force it down but it was uncomfortable. After the above therapy I rechecked the patient. He says he feels much better I gave him another drink water and he sucked it down without any difficulty and in no pain. He cannot drink without difficulty I've given him 2 full liters of saline and he is euvolemic Discussed she should follow-up with GI physician. He might have passed a bolus or have esophageal spasm He is cautioned about eating things that could get stuck such as chicken and steak May benefit from full liquid diet Diagnosis Primary Impression: Dysphagia Qualified Code: R13.14 - Esophageal dysphagia Additional Impressions: Odynophagia Dehydration, moderate Additional Instructions: Avoid chicken and steak Follow-up with gastroenterology Switch to full liquid diet if having trouble swallowing Med/Other Pt SpecificInfo: Other Disposition: 01 DISCHARGE HOME Condition: Stable Timo Zelaya MD Jun 28, 2016 09:27
[2016-06-28] MEDS ORDERED: GLUCAGON 1 MG/ML VIAL IV PUSH ONE (09:30)
[2016-06-28] MEDS ORDERED: SODIUM CHLOR 0.9% 1000 ML INJ 1,000 ML IV ONE ×2 (09:30→12:00)
[2016-06-28] MEDS ORDERED: ONDANSETRON HCL 4 MG/2 ML VIAL IV ONE (09:30)
[2016-06-28 10:15] LABS: AUTOMATED NEUTROPHIL # 11.5 TH/MM3 (1.8-7.7); BASOPHIL # 0.1 TH/MM3 (0-0.2); BASOPHIL % 0.7 % (0.0-2.0); EOSINOPHIL # 0.1 TH/MM3 (0-0.4); HEMATOCRIT 44.1 % (39.0-51.0); HEMO FLAGS DIFF FINAL; LYMPH % 12.4 % (9.0-44.0); LYMPHOCYTE # 1.8 TH/MM3 (1.0-4.8); MEAN CELL VOLUME 96.9 FL (80.0-100.0); MEAN CORPUSCULAR HGB CONC 33.1 % (32.0-36.0); MONO % 6.5 % (0.0-8.0); NEUT % 79.4 % (16.0-70.0); PLATELET COUNT 267 TH/MM3 (150-450); RED BLOOD COUNT 4.55 MIL/MM3 (4.50-5.90); WHITE BLOOD COUNT 14.5 TH/MM3 (4.0-11.0)
[2016-06-28 10:54] LABS: ALT (GPT) 30 U/L (12-78); ANION GAP 8 MEQ/L (5-15); AST (GOT) 18 U/L (15-37); BICARBONATE 26.1 MEQ/L (21.0-32.0); BLOOD UREA NITROGEN 12 MG/DL (7-18); CHLORIDE 105 MEQ/L (98-107); GLOMERULAR FILTRATION RATE 86 ML/MIN (>89); POTASSIUM 3.7 MEQ/L (3.5-5.1); SODIUM (NA) 139 MEQ/L (136-145)
[2016-06-28 10:56] LABS: ALKALINE PHOSPHATASE 77 U/L (45-117); TOTAL BILIRUBIN ADULT 0.8 MG/DL (0.2-1.0)
[2016-06-28 11:53] VITALS: BP 115/69; PULSE 80; RESP 20; O2SAT 95
== END 2016-06-28 13:55 | disposition home or self-care (01) ==
LOC: NEPC 08:39
DX: R13.14 Dysphagia, pharyngoesophageal phase (principal); E86.0 Dehydration; E78.00 Pure hypercholesterolemia, unspecified; E11.9 Type 2 diabetes mellitus without complications; I10 Essential (primary) hypertension; F17.210 Nicotine dependence, cigarettes, uncomplicated; R00.0 Tachycardia, unspecified
CPT/HCPCS: 80053; 83690; 85025; 96361; 96374; 96375; 99284; J1610; J2405; J7030

== ENCOUNTER → 2016-08-16 | Day surgery (SDC) | payer MEDICARE ==
[~2016-08-16] MED LIST changes: +BUPIVACAINE/EPINEPHRINE 0.25% 50 ML VIAL ONE; -DOXE25CA2 PO; +ISOSULFAN BLUE 50 MG/5 ML VIAL SQ ONE; +LACTATED RINGER'S 1000 ML INJ 1,000 ML ONE; +LIDOCAINE 1%/EPINEPHrine 1:100,000 SOLN 20 ML VIAL ONE; +MIDAZOLAM HCL 2 MG/2 ML VIAL ONE; +MORPHINE SULFATE 4 MG/ML INJ ONE; +ONDANSETRON HCL 4 MG/2 ML VIAL IV PUSH ONE; +PROPOFOL 200 MG/20 ML AMP IV ONE; +SODIUM CHLORIDE 0.9% 20 ML VIAL ONE; +SODIUM CHLORIDE 0.9% 250 ML ADDBAG IV ONE; +VANCOMYCIN 500 MG VIAL ONE; +VANCOMYCIN HCL 1000 MG VIAL ONE; +oxyCODONE/ACETAMINOPHEN 5 MG/325 MG TAB ONE
--- NOTE | 2016-08-17 14:00 | MP ---
cc: JENN ARGUETA M.D. DATE OF SURGERY: 08/16/2016 PREOPERATIVE DIAGNOSES 1. 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 2. Right neck previous squamous cell carcinoma with deep positive margins. 3. Melanoma right shoulder. POSTOPERATIVE DIAGNOSIS 1. 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 2. Right neck previous squamous cell carcinoma with deep positive margins. 3. Melanoma right shoulder. OPERATION 1. Excision left mid forehead squamous cell carcinoma and double triangular sliding advancement flaps closure with frozen section. 2. Left neck reexcision of the surgical scar with 4 mm margin including fascia and direct closure. 3. Excision melanoma right shoulder with rotational flap closure done by Dr. Roshan Hatfield, to be dictated by him. INDICATIONS This is a 66-year-old while male with the above-mentioned three skin malignancies. Two are squamous cell carcinoma. On the forehead is residual so I have to biopsy, and the one on the neck had been excised by a fire equipment operator in the past after the first biopsy and has a positive deep margin according to the pathology report. The melanoma is 0.8 mm, however, it is level III, has a history of being frozen in the past. The surgery to do the melanoma excision and sentinel lymph node biopsy was attempted by Dr. Roshan Hatfield using lymphoscintigraphy and blue dye; however, the patient had trouble going for scanning after the radiolucent dye had been injected and an exact localization has not been done. The axillary area exploration and melanoma excision and rotational flap were carried out by Dr. Hatfield and will be dictated separately. The patient had been explained the overall nature of the surgery to remove the forehead skin cancer with frozen section, the one in the neck only for permanent section, and an advancement or rotational flap closure of the forehead. The patient understands the possibility of risks and complications including those with anesthesia, medication, surgery in general, possibility of damage to the surrounding nerves and vessels in the area of surgery, possible loss of reconstruction including loss of flap, necrosis, hematoma, seroma, infection, abnormal healing, wound dehiscence, possible future surgeries, and he is willing to go ahead with the same. The final pathology on the melanoma will also decide any future treatments as needed. PROCEDURE The patient was brought to the operating room, was given supine position. Anesthesia was started. Prep and drape was done. IV antibiotics had been started. A timeout was called and completed. The patient was kept in a supine position to complete the left forehead, right neck and the right axillary exploration. The first two were done by myself. The overall preoperative markings were reinforced. Saline and lidocaine with epinephrine dilute mixture was utilized to hydrodissect and tumesce the area. The forehead lesion was excised with 4 mm margins. A circular excision was carried out, an approximately 2.2 cm diameter excision was carried down to the underlying frontalis muscle. The muscle was preserved. The specimen was suture marked superior and sent for frozen section. The area clinically had adequate clearance and an oval outline with two triangles superiorly and anteriorly were used. A dermis full-thickness incision was made through these angles then starting superiorly the dissection was carried straight through the fat across the underlying frontalis muscle to match the flap outline and the muscle was lifted off the periosteum staying under the muscle and the loose alveolar tissue right down to the brow. Approximately two-thirds distance of the muscle was cut on the upper flap to allow free mobilization of the triangular skin-bearing on the muscle itself including the arterial supply from the supraorbital artery. The supratrochlear is more medial. It was easy enough to advance the two triangular flaps approximated in the midline without much tension. Fine 3-0 Vicryl sutures were used to approximate the horizontal line, then the triangular ends and then the rest of the rest of the closure was completed. It was not necessary to use any skin sutures. The area was covered with a moist sponge while the further surgery was continued on the right neck. The area was tumesced. The area was excised down to the underlying anterior border of the trapezius muscle and the specimen was removed, suture marked superior and sent only for permanent section. It was noted that there was still a fair amount of fibrosis adherent to the surface of the muscle into the depths of the wound and a second excision was carried out removing the scar as well. There was no clear visible squamous cell carcinoma noted. Hemostasis was completed. Heavy 2-0 Vicryl sutures were needed to approximate this area but it was possible to close it primarily with two layers of sutures and a couple of simple Prolene sutures on the outside. The incision was also covered with Dermabond and Steri-Strips. In the meantime Dr. Hatfield had completed the axillary area and the wound had been closed. All these areas were covered and protected. The paper drapes were removed. The patient was turned on his left side with the help OR personnel and adequate padding was assured. The outline of the melanoma lesion and biopsy was marked and a 2 cm margin was taken surrounding the entire area. A large rotational flap was outlined going from the lateral aspect of the defect towards the lower part of the scapula, going medial. The prep and drape was done. Again tumescent solution was used for hydrodissection and hemostasis. The specimen was excised going straight from the skin through the fat and up to the fascia and excising the fascia completely along with the specimen. The flap elevation was also done at a similar level. The closure and the further dictation of this will be done by Dr. Hatfield. The patient remained stable and continued under surgery. Intraoperative blood loss on all four sites was approximately 10-15 cc. There were no complications. SIGNED, NOT FULLY REVIEWED MD CYN Foy/AGUSTIN /2:30 PM /1:25 PM JACKIE
--- NOTE | 2016-08-20 06:13 | MP ---
cc: NOMI,DANIELA Hutchinson MD DATE OF SURGERY: 08/16/2016 PREOPERATIVE DIAGNOSIS: Malignant melanoma of the right shoulder, squamous cell carcinoma in-situ forehead and right neck. POSTOPERATIVE DIAGNOSIS: Malignant melanoma of the right shoulder, squamous cell carcinoma in-situ forehead and right neck. OPERATION: Wide excision of right shoulder malignant melanoma with rotational flap closure, sentinel lymph node biopsy. In addition and dictated separately by Dr. Thomas, the patient underwent excision of the left forehead squamous cell carcinoma with double triangular advancement flap and right neck reexcision of squamous cell carcinoma. ANESTHESIA General ESTIMATED BLOOD LOSS 10 cc SPECIMENS 1. Right axillary contents. 2. Right shoulder melanoma with suture anterior. OTHER SPECIMENS By Dr. Thomas, dictated separately. INDICATIONS This gentleman had multiple skin lesions noted by his primary care physician as well as director of cath lab. The squamous cell carcinomas have been evaluated and treated by Dr. Thomas please see his dictation. The melanoma is 0.8 mm on the right posterior shoulder upper back area and level III. There is some report of it having been frozen in the past, although I did not see this formally reported from the director of cath lab. However 0.8 mm is already in the range of considering sentinel lymph node biopsy and because there is concern for possible unknown depth I did recommend sentinel lymph node biopsy and also proceeded to perform the excision with 2 cm margins. Unfortunately, although the patient did have radio nuclei dye injected at the location of the melanoma. He was unable to undergo lymphoscintigraphy scanning due to anxiety and just being unable to undergo the procedure. This does decrease the sensitivity of the sentinel biopsy as I am unable to locate preoperatively where the most likely sentinel node is present. I did discuss this with the patient and there is not really any other good choice except for canceling the procedure and we opted to proceed at this time. PROCEDURE IN DETAIL The patient was taken to the operating room and placed in a supine position. General endotracheal anesthesia was induced. The forehead, right neck and face and axilla were prepped and draped in usual sterile fashion. Prior to the draping, I had injected 2 cc of Isosulfan blue around the melanoma on the right posterior shoulder and in the dermis. A surgical time-out was performed to verify correct patient, procedure and site. Dr. Thomas performed the procedures on the forehead in the right neck. I made a 3 cm incision along, near the hairline at the right axilla. After infiltration with local anesthetic. The clavipectoral fascia was incised with electrocautery and the axillary contents were visualized. Using the probe, I evaluated for sentinel lymph nodes in the right axilla. I looked in multiple areas and I visualized the axillary vein. I look towards the chest wall and in all quadrants of the axilla. I did remove two separate areas of fatty tissue which seem to possibly have increased count after removal did not. There was no increase count in the axilla and, unless the probe was directly pointed at the area of the melanoma on the back. There is also no evidence of any blue dye, in the nodes in the ampullae. Therefore after taking two areas of fatty tissue, I decided to abort as I was unable to clearly identify any sentinel lymph nodes. Hemostasis was achieved and the incision was closed with 3-0 Vicryl, and 4-0 Monocryl subcuticular layer. Dermabond was applied. I did check the right neck using the probe for any increased activity which was not present. After I completed the sentinel lymph node portion and Dr. Thomas had completed the forehead flap and the right neck excision. The patient was placed in the lateral position using the waldron bag. He was reprepped and redraped from the right posterior shoulder melanoma. There was a 1-2 cm area of scab which had been from the previous shaved biopsy. The melanoma was excised with 2 cm circumferentially from the scab, including skin and subcutaneous tissue and fascia and used stitch which marked the anterior position. Hemostasis was achieved. Due to the large defect I opted to proceed with a rotational advancement of flap. This was outlined in the lateral aspect of the defect towards the lower part of the scapula and then curving slightly medially. Tumescent solution had been injected for hydrodissection as well as hemostasis. The elevation of the flap was preformed, including the level of the fascia, including the fascia. The flap was rotated medially to fill the area of previous excision of the melanoma. The flap was sutured in place with 2-0 Vicryl deep dermal sutures followed by a running 3-0 Prolene suture. There was very good approximation with minimal tension on the skin and underlying tissue. Kahlil did place a Maryuri drain along the underside of the flap into the space, where the cavity from the melanoma excision was. This was brought out through the incision and inferior and lateral portion. The flap was well vascularized with no discoloration. A dry dressing was placed. The patient did well was extubated and taken to PACU in stable condition and there were no apparent complications. Thank you MD CHARLES Cai/uma /4:11 PM /5:58 AM
== END | disposition home or self-care (01) ==
LOC: ESDC 06:22
PROVIDERS: ATTEND Plastic Surgery
DX: D04.39 Carcinoma in situ of skin of other parts of face (principal); C44.42 Squamous cell carcinoma of skin of scalp and neck; C43.61 Malignant melanoma of right upper limb, including shoulder; L90.5 Scar conditions and fibrosis of skin; E11.29 Type 2 diabetes mellitus with other diabetic kidney complication; E11.65 Type 2 diabetes mellitus with hyperglycemia; Z79.4 Long term (current) use of insulin
CPT/HCPCS: 00300; 00400; 01610; 13132; 14021; 14040; 38525; 82948; 88305; 88331; J2250; J2270; J2405; J3010; J3370; J7120; Q9968; 88307

== ENCOUNTER 2016-10-12 15:54 | Emergency (ER) | payer MEDICARE ==
[~2016-10-12] VITALS: Ht 182.9 cm; Wt 100.0 kg
[~2016-10-12 15:54] MED LIST changes: -BUPIVACAINE/EPINEPHRINE 0.25% 50 ML VIAL ONE; -ISOSULFAN BLUE 50 MG/5 ML VIAL SQ ONE; -LACTATED RINGER'S 1000 ML INJ 1,000 ML ONE; -LIDOCAINE 1%/EPINEPHrine 1:100,000 SOLN 20 ML VIAL ONE; -MIDAZOLAM HCL 2 MG/2 ML VIAL ONE; -MORPHINE SULFATE 4 MG/ML INJ ONE; -ONDANSETRON HCL 4 MG/2 ML VIAL IV PUSH ONE; -PROPOFOL 200 MG/20 ML AMP IV ONE; -SODIUM CHLORIDE 0.9% 20 ML VIAL ONE; -SODIUM CHLORIDE 0.9% 250 ML ADDBAG IV ONE; -VANCOMYCIN 500 MG VIAL ONE; -VANCOMYCIN HCL 1000 MG VIAL ONE; -oxyCODONE/ACETAMINOPHEN 5 MG/325 MG TAB ONE
[2016-10-12 15:56] VITALS: BP 129/82; PULSE 90; RESP 20; TEMP 97.4; O2SAT 96
--- NOTE | 2016-10-12 16:19 | PD ---
Physical Exam Time Seen by Provider: 16:18 Narrative Pt presents to the emergency department for evaluation of right sided abdominal pain that began this morning. Denies any nausea, vomiting, diarrhea, constipation. States he had a fever earlier today. VSS. Awaiting bed placement. Data Data Last Documented VS Vital Signs Date Time Temp Pulse Resp B/P Pulse Ox O2 Delivery O2 Flow Rate FiO2 10/12/16 15:56 97.4 90 20 129/82 96 Room Air MDM Supervised Visit with JUAN: Kelly Uribe Oct 12, 2016 16:19
[2016-10-12] MEDS ORDERED: SODIUM CHLORIDE 0.9% FLUSH 10 ML FLUSH IV FLUSH PRN (16:30)
[2016-10-12 17:10] LABS: AUTOMATED NEUTROPHIL # 10.8 TH/MM3 (1.8-7.7); BASOPHIL # 0.1 TH/MM3 (0-0.2); BASOPHIL % 0.7 % (0.0-2.0); EOSINOPHIL # 0.2 TH/MM3 (0-0.4); EOSINOPHIL % 1.1 % (0.0-4.0); HEMATOCRIT 44.7 % (39.0-51.0); HEMO FLAGS DIFF FINAL; LYMPH % 18.6 % (9.0-44.0); LYMPHOCYTE # 2.8 TH/MM3 (1.0-4.8); MEAN CELL VOLUME 97.3 FL (80.0-100.0); MEAN CORPUSCULAR HEMOGLOBIN 31.2 PG (27.0-34.0); MONO % 6.9 % (0.0-8.0); NEUT % 72.7 % (16.0-70.0); PLATELET COUNT 327 TH/MM3 (150-450); RED CELL DISTRIBUTION WIDTH 15.1 % (11.6-17.2); WHITE BLOOD COUNT 14.8 TH/MM3 (4.0-11.0)
[2016-10-12 17:16] LABS: BLOOD, URINE NEG (NEG); COMMENT (UR) CULT NOT INDICATED; CULTURE IF INDICATED CULT NOT INDICATED; GLUCOSE,URINE NEG (NEG); HYALINE CAST, URINE 1 /lpf (RARE); KETONE, URINE NEG (NEG); MUCUS URINE FEW /lpf (OCC); NITRITE,URINE NEG (NEG); PH, URINE 5.5 (5.0-8.5); URINE COLOR YELLOW (YELLW/STRAW)
[2016-10-12 17:22] LABS: ANION GAP 7 MEQ/L (5-15); AST (GOT) 30 U/L (15-37); BICARBONATE 29.2 MEQ/L (21.0-32.0); BLOOD UREA NITROGEN 16 MG/DL (7-18); CHLORIDE 101 MEQ/L (98-107); GLOMERULAR FILTRATION RATE 66 ML/MIN (>89); POTASSIUM 4.7 MEQ/L (3.5-5.1); SODIUM (NA) 137 MEQ/L (136-145)
[2016-10-12 17:24] LABS: ALT (GPT) 32 U/L (12-78)
[2016-10-12 17:25] LABS: ALKALINE PHOSPHATASE 60 U/L (45-117); TOTAL BILIRUBIN ADULT 0.4 MG/DL (0.2-1.0)
== END 2016-10-12 17:42 | disposition left against medical advice (07) ==
LOC: NED 15:54
DX: R10.9 Unspecified abdominal pain (principal)
CPT/HCPCS: 80053; 81001; 83690; 85025; 99283

== ENCOUNTER 2018-01-05 21:46 | Observation (INO) ==
[2018-01-06] MEDS ORDERED: Sod Chloride 0.9% Inj 1,000 ML IV.CONT SCH
--- NOTE | 2018-01-06 00:26 | ED ---
HPI General Chief Complaint: Syncope Stated Complaint: syncope Time Seen by Provider: 01/05/18 23:38 Source: patient Mode of arrival: ambulatory Limitations: no limitations History of Present Illness HPI narrative: 67-year-old male complains of syncope. Patient states that he has intermittent syncope for the past 2 weeks. Patient states that he had 2 syncopal episodes today. Patient states that he has abrasion to the face, extremity and knees from the syncopal episode. Patient was seen by personal physician last week. Patient states that his blood pressure has been up and down. Patient states that his blood sugar has been under control. Patient has history of diabetes and hyperlipidemia. Patient is a smoker. Patient has history of rheumatoid arthritis and taking morphine at home. Patient denies any alcohol or drug abuse. Patient denies any headache. Patient denies any visual change. Patient denies any neck pain. Patient denies any chest pain or shortness of breath. Patient denies abdominal pain. Patient denies any back pain. Patient denies any cough congestion fever chills. Patient denies any nausea vomiting diarrhea. complaint: loss of consciousness Onset (ago): week(s) -: second(s) Prodromal symptoms: none Witnessed: yes - by bystander Context: standing up Injuries sustained associated with event: face, LUE, RUE, LLE and RLE Current symptoms: none Treatments prior to arrival: none Related Data Home Medications Medication Instructions Recorded Confirmed Unable to Obtain Home Meds 01/05/18 01/05/18 Allergies Allergy/AdvReac Type Severity Reaction Status Date / Time aspirin Allergy Severe RASH & Unverified 01/05/18 21:51 DECREASED BP ibuprofen Allergy Severe DECREASED Unverified 01/05/18 21:51 BLOOD PRESSURE penicillin G Allergy Severe PASSED OUT Unverified 01/05/18 21:51 fish oil Allergy Unknown Abdominal Unverified 01/05/18 21:51 Pain oxycodone AdvReac Unknown NAUSEA/VOMI Unverified 01/05/18 21:51 MEME Review of Systems ROS: all other systems reviewed are negative [facility] Medical History Medical History Anxiety (Acute) Bipolar 1 disorder (Acute) Diabetes (Acute) HTN (hypertension) (Acute) Hyperlipemia (Acute) Medical history unknown (Acute) Social History Social History Substance History: No History of Abuse Second Hand Smoke Exposure: No Smoking Status: Current every day smoker Tobacco Type: Cigarettes How Often Do You Have a Drink Containing Alcohol: Never Recent Travel in [facility] within the Last 8 Weeks: No Recent Out of Country Travel within the Last 8 Weeks: No Immunization History Tetanus Immunization: >5 Years Hx Influenza Vaccine This Season: No Exam Narrative Exam Narrative: GENERAL: Well-nourished, well-developed patient. SKIN: Focused skin assessment warm/dry. HEAD: Normocephalic. Patient has 1.5 cm laceration above the left eyebrow. No active bleeding. EYES: No scleral icterus. No injection or drainage. NECK: Supple, trachea midline. No JVD or lymphadenopathy. CARDIOVASCULAR: Regular rate and rhythm without murmurs, gallops, or rubs. RESPIRATORY: Breath sounds equal bilaterally. No accessory muscle use. GASTROINTESTINAL: Abdomen soft, non-tender, nondistended. MUSCULOSKELETAL: No cyanosis, or edema. Patient has multiple skin abrasions upper extremity and bilateral knee area. No active bleeding. BACK: Nontender without obvious deformity. No CVA tenderness. Neurologic exam normal. Procedures Laceration Laceration 1: Site: face Side (If applicable): right Size (cm): 1 Description: linear Depth: simple, single layer Pre-repair:: wound explored, irrigated extensively and deep structures intact Skin layer closed with: dermabond Course Initial Documented Vital Signs Temperature 98.0 F 01/05/18 21:51 Pulse Rate 81 01/05/18 21:51 Respiratory Rate 18 01/05/18 21:51 Blood Pressure 95/55 L 01/05/18 21:51 Pulse Oximetry 95 01/05/18 21:51 Last Documented Vital Signs Temperature 98.0 F 01/05/18 21:51 Pulse Rate 85 01/06/18 01:44 Respiratory Rate 20 01/06/18 01:44 Blood Pressure 124/75 01/06/18 01:44 Pulse Oximetry 97 01/06/18 01:44 Medical Decision Making MDM Narrative Medical decision making narrative: 67-year-old male with multiple syncopal episodes for the past 2 weeks. Patient has small laceration on the left eyebrow and multiple abrasions to the extremity. Normal saline solution 100 cc an hour. PA NOTE: I was asked to evaluate this patient's facial laceration. See my procedure note for details. Dr. Alonso retains care of this patient. Medical Screen Exam Complete: Yes Emergency Medical Condition: Yes Differential Diagnosis Differential Diagnosis: Differential diagnosis including vasovagal reaction, TIA , CVA, orthostatic hypotension, dehydration, electrolyte imbalance, arrhythmia. Lab Data Lab results reviewed: Yes I reviewed the patient's lab results. Result diagrams: 01/06/18 00:08 01/06/18 00:08 Lab Results 01/06/18 01/06/18 01/06/18 Range/Units 00:08 00:08 00:08 WBC (4.0-11.0) th/mm3 RBC (4.50-5.90) mil/mm3 Hgb (13.0-17.0) gm/dL Hct (39.0-51.0) % MCV (80.0-100.0) fL MCH (27.0-34.0) pg MCHC (32.0-36.0) % RDW (11.6-17.2) % Plt Count (150-450) th/mm3 MPV (7.0-11.0) fL Neut % (Auto) (16.0-70.0) % Lymph % (Auto) (9.0-44.0) % Ritchie % (Auto) (0.0-8.0) % Eos % (Auto) (0.0-4.0) % Baso % (Auto) (0.0-2.0) % Neut # (Auto) (1.8-7.7) th/mm3 Lymph # (Auto) (1.0-4.8) th/mm3 Ritchie # (Auto) (0.0-0.9) th/mm3 Eos # (Auto) (0.0-0.4) th/mm3 Baso # (Auto) (0.0-0.2) th/mm3 WBC Differential Differential Comment PT 11.6 (9.8-11.6) sec INR 1.1 Ratio APTT 22.7 L (24.3-30.1) sec Sodium 142 (136-145) meq/L Potassium 4.5 (3.5-5.1) meq/L Chloride 107 (98-107) meq/L Carbon Dioxide 22.3 (21.0-32.0) meq/L Anion Gap 13 (5-15) meq/L BUN 28 H (7-18) mg/dL Creatinine 1.43 H (0.60-1.30) mg/dL Estimated GFR 49 L (>89) mL/min Random Glucose 123 H (74-106) mg/dL Calcium 8.9 (8.5-10.1) mg/dL Total Bilirubin 0.6 (0.2-1.0) mg/dL AST 34 (15-37) U/L ALT 24 (12-78) U/L Alkaline Phosphatase 38 L (45-117) U/L Troponin I Less than 0.02 L (0.02-0.05) ng/mL B-Natriuretic Peptide 10 (0-100) pg/mL Total Protein 7.2 (6.4-8.2) g/dL Albumin 3.4 (3.4-5.0) g/dL 01/06/18 Range/Units 00:08 WBC 12.2 H (4.0-11.0) th/mm3 RBC 3.72 L (4.50-5.90) mil/mm3 Hgb 12.4 L (13.0-17.0) gm/dL Hct 36.6 L (39.0-51.0) % MCV 98.5 (80.0-100.0) fL MCH 33.4 (27.0-34.0) pg MCHC 33.9 (32.0-36.0) % RDW 14.4 (11.6-17.2) % Plt Count 287 (150-450) th/mm3 MPV 9.3 (7.0-11.0) fL Neut % (Auto) 76.0 H (16.0-70.0) % Lymph % (Auto) 12.9 (9.0-44.0) % Ritchie % (Auto) 9.1 H (0.0-8.0) % Eos % (Auto) 1.0 (0.0-4.0) % Baso % (Auto) 1.0 (0.0-2.0) % Neut # (Auto) 9.3 H (1.8-7.7) th/mm3 Lymph # (Auto) 1.6 (1.0-4.8) th/mm3 Ritchie # (Auto) 1.1 H (0.0-0.9) th/mm3 Eos # (Auto) 0.1 (0.0-0.4) th/mm3 Baso # (Auto) 0.1 (0.0-0.2) th/mm3 WBC Differential . Differential Comment Auto diff final PT (9.8-11.6) sec INR Ratio APTT (24.3-30.1) sec Sodium (136-145) meq/L Potassium (3.5-5.1) meq/L Chloride (98-107) meq/L Carbon Dioxide (21.0-32.0) meq/L Anion Gap (5-15) meq/L BUN (7-18) mg/dL Creatinine (0.60-1.30) mg/dL Estimated GFR (>89) mL/min Random Glucose (74-106) mg/dL Calcium (8.5-10.1) mg/dL Total Bilirubin (0.2-1.0) mg/dL AST (15-37) U/L ALT (12-78) U/L Alkaline Phosphatase (45-117) U/L Troponin I (0.02-0.05) ng/mL B-Natriuretic Peptide (0-100) pg/mL Total Protein (6.4-8.2) g/dL Albumin (3.4-5.0) g/dL Imaging Data Attestation: I personally reviewed and interpreted this imaging study as follows : Radiologist's impression: Head CT 01/06/18 00:00 CONCLUSION: 1. No acute abnormality. 2. Cortical atrophy. 3. Possible left frontal scalp injury. . Discharge Plan Discharge Disposition Patient Disposition: 30 Still Patient Discharge Details Diagnosis: Laceration of forehead, left, complicated, Syncope, Abrasion, multiple sites Physicians Team ED Provider: Elliott Alonso ED Midlevel Provider: Estrella Lowe Primary Care Provider: Hayes Haynes Rxs /Orders / Referrals /Forms Prescriptions: No Action Unable to Obtain Home Meds RF: 0 Discharge Instructions Additional Instructions: Wound care daily. Head trauma instructions given. Follow-up with personal physician. Return as needed. Status ED Status: Admitted Patient
[2018-01-06 00:28] LABS: Baso # (Auto) 0.1 th/mm3 (0.0-0.2); Eos # (Auto) 0.1 th/mm3 (0.0-0.4); Hematocrit 36.6 % (39.0-51.0); Hemoglobin 12.4 gm/dL (13.0-17.0); Lymph # (Auto) 1.6 th/mm3 (1.0-4.8); Lymph % (Auto) 12.9 % (9.0-44.0); Mean Corpuscular HGB Conc 33.9 % (32.0-36.0); Mean Corpuscular Hemoglobin 33.4 pg (27.0-34.0); Mean Corpuscular Volume 98.5 fL (80.0-100.0); Mean Platelet Volume 9.3 fL (7.0-11.0); Mono # (Auto) 1.1 th/mm3 (0.0-0.9); Mono % (Auto) 9.1 % (0.0-8.0); Neut # (Auto) 9.3 th/mm3 (1.8-7.7); Platelet Count 287 th/mm3 (150-450); Red Blood Count 3.72 mil/mm3 (4.50-5.90); Red Cell Distribution Width 14.4 % (11.6-17.2); White Blood Count 12.2 th/mm3 (4.0-11.0)
[2018-01-06 00:33] LABS: Activated Partial Thrombo Time 22.7 sec (24.3-30.1); INR 1.1 Ratio; Prothrombin Time 11.6 sec (9.8-11.6)
[2018-01-06 00:43] LABS: Alanine Aminotransferase 24 U/L (12-78); Albumin 3.4 g/dL (3.4-5.0); Anion Gap 13 meq/L (5-15); Aspartate Aminotransferase 34 U/L (15-37); Blood Urea Nitrogen 28 mg/dL (7-18); Calcium 8.9 mg/dL (8.5-10.1); Carbon Dioxide 22.3 meq/L (21.0-32.0); Chloride 107 meq/L (98-107); Glomerular Filtration Rate 49 mL/min (>89); Glucose,Random 123 mg/dL (74-106); Potassium 4.5 meq/L (3.5-5.1); Sodium 142 meq/L (136-145)
--- NOTE | 2018-01-06 00:43 | CT ---
EXAM DATE: 01/06/2018 12:08 AM EDT AGE/SEX: 67 years / Male INDICATIONS: Altered mental status. Patient complains of headache and reports multiple syncopal epi sodes. CLINICAL DATA: This is the patient's initial encounter. Patient reports that signs and symptoms have been present for 1 day and indicates a pain score of 6/10. MEDICAL/SURGICAL HISTORY: Diabetes. Hypertension. None. RADIATION DOSE: 56.35 CTDI (mGy) COMPARISON: No prior exams available for comparison. TECHNIQUE: CT of the head without contrast. Using automated exposure control and adjustment of the mA and/or kV according to patient size, radiation dose was kept as low as reasonably achievable to ob tain optimal diagnostic quality images. DICOM format image data is available electronically for revi ew and comparison. FINDINGS: Cerebrum: The ventricles are normal for age. The cortical sulci are widened. No evidence of midline shift, mass lesion, hemorrhage or acute infarction. No extraaxial fluid collections are seen. Posterior Fossa: The cerebellum and brainstem are intact. The 4th ventricle is midline. The cerebe llopontine angle is unremarkable. Extracranial: The visualized portion of the orbits is intact. There appears to be a possible soft ti ssue injury at the left frontal scalp. Skull: The calvaria is intact. No evidence of skull fracture. CONCLUSION: 1. No acute abnormality. 2. Cortical atrophy. 3. Possible left frontal scalp injury. . Electronically signed by: Ashok Zamudio MD 01/06/2018 12:42 AM EDT
[2018-01-06 00:47] LABS: Alkaline Phosphatase 38 U/L (45-117); Total Protein 7.2 g/dL (6.4-8.2)
[2018-01-06] MEDS ORDERED: Dextrose 50% in Water 50 ML Vial IV.PUSH PRN (03:41)
[2018-01-06 06:35] LABS: Carbon Dioxide 24.5 meq/L (21.0-32.0); Potassium 4.2 meq/L (3.5-5.1)
[2018-01-06 06:37] LABS: Chol/HDL Ratio 2.63 Ratio; HDL Cholesterol 42.1 mg/dL (40.0-60.0)
[2018-01-06] MEDS: Insulin NovoLOG Aspart Correctional Sugar Inj SQ SCH ×4 (09:30→21:55)
--- NOTE | 2018-01-06 09:37 | ECG ---
Date Performed: 01/05/2018 Time Performed: 21:54:46 PTAGE: 67 years EKG: Sinus rhythm BORDERLINE LEFT AXIS DEVIATION BORDERLINE ECG Compared to prior electrocardiogram, rate has decrease d . DOCTOR: Stevan Reyes Interpretating Date/Time 01/06/2018 09:36:27
--- NOTE | 2018-01-06 10:02 | P.HP ---
<Nely Poon W - Last Filed: 01/06/18 18:23> History of Present Illness Primary Care Physician: Hayes Haynes Chief Complaint: Recurrent syncope with laceration History of Present Illness: This is a 67-year-old male patient with a past medical history which includes rheumatoid arthritis, diabetes mellitus on oral medications and insulin, hypertension, hyperlipidemia, anxiety/depression, bipolar disorder, chronic kidney disease stage II, degenerative disc disease, long-term use of narcotics, mitral regurgitation, Dick, squamous cell carcinoma, B12 deficiency, vitamin D deficiency and tobacco dependency. Patient presents to the emergency department with reports of recurrent syncopal episodes over the past 2 weeks. In fact patient reports he had 2 syncopal episodes on January 05 when he decided to come to the emergency department. Patient also suffered a laceration above the left eyebrow which was sutured in the emergency department. Upon arrival to the emergency department patient's blood pressure was 95/55. CT the head reviewed and reveals: No acute abnormality, Cortical atrophy and Possible left frontal scalp injury. PMH: rheumatoid arthritis, diabetes mellitus on oral medications and insulin, hypertension, hyperlipidemia, anxiety/depression, bipolar disorder, chronic kidney disease stage II, degenerative disc disease, long-term use of narcotics, mitral regurgitation, Dick, squamous cell carcinoma, B12 deficiency, vitamin D deficiency and tobacco dependency PSxH: Complete colonoscopy, EGD with biopsy, paravertebral nerve block facet joint, Rhizotomy Social history Denies current EtOH use drink heavily from ages [age] Current daily tobacco use 1 pack a day Denies illicit drug use FMH: Reviewed and noncontributory - Diagnosis (1) Syncope (2) Laceration of forehead, left, complicated Inpatient Certification: I certify that the inpatient services were ordered in accordance with Medicare regulations governing the order. This includes certification that hospital inpatient services are reasonable and necessary and in the case of services not specified as inpatient-only under 42 CFR 419.22(n), that they are appropriately provided as inpatient services in accordance to with the 2-midnight benchmark under 43 CFR 412.3(e) Review of Systems All other systems reviewed negative except as stated in HPI [facility] - History History Provided By: Patient - Medical History Medical History: Medical History (Last Reviewed 01/06/18 @ 16:25 by Yarelis Briggs) Anxiety Bipolar 1 disorder Diabetes HTN (hypertension) Hyperlipemia Medical history unknown - Tobacco History Second Hand Smoke Exposure: No Tobacco Use In Past 30 Days: No Smoking Status: Current every day smoker Tobacco Type: Cigarettes - Alcohol History How Often Do You Have a Drink Containing Alcohol: Never - Substance Use History Substance History: No History of Abuse - Travel History Recent Travel in the [place] Within the Last 8 Weeks: No Recent Travel Out of the Country Within the Last 8 Weeks: No - Immunization History Tetanus Immunization: >5 Years Hx Influenza Vaccine This Season: No Medications and Allergies Allergies Allergy/AdvReac Type Severity Reaction Status Date / Time aspirin Allergy Severe RASH & Unverified 01/05/18 21:51 DECREASED BP ibuprofen Allergy Severe DECREASED Unverified 01/05/18 21:51 BLOOD PRESSURE penicillin G Allergy Severe PASSED OUT Unverified 01/05/18 21:51 fish oil Allergy Unknown Abdominal Unverified 01/05/18 21:51 Pain oxycodone AdvReac Unknown NAUSEA/VOMI Unverified 01/05/18 21:51 TING Home Medications Medication Instructions Recorded Confirmed Type alendronate 70 mg PO QWEEK 01/06/18 01/06/18 History doxepin 10 mg PO HS 01/06/18 01/06/18 History fenofibrate nanocrystallized 145 mg PO DAILY 01/06/18 01/06/18 History gabapentin 600 mg PO TID 01/06/18 01/06/18 History insulin NPH and regular human 20 unit SUBCUT QPM 01/06/18 01/06/18 History [Novolin 70/30 U-100 Insulin] insulin NPH and regular human 40 unit SUBCUT QAM 01/06/18 01/06/18 History [Novolin 70/30 U-100 Insulin] lamotrigine 100 mg PO TID 01/06/18 01/06/18 History lisinopril 20 mg PO DAILY 01/06/18 01/06/18 History metformin 1,000 mg PO BID 01/06/18 01/06/18 History methotrexate sodium 15 mg PO WEEKLY 01/06/18 01/06/18 History metoprolol tartrate 12.5 mg PO BID 01/06/18 01/06/18 History morphine 15 mg PO Q12H 01/06/18 01/06/18 History pantoprazole 40 mg PO DAILY 01/06/18 01/06/18 History quetiapine 150 mg PO HS 01/06/18 01/06/18 History rosuvastatin 20 mg PO DAILY 01/06/18 01/06/18 History tofacitinib [Xeljanz] 5 mg PO Q12H 01/06/18 01/06/18 History Active Medications: Active Medications Dextrose (D50w Vial) 50 ml IV.PUSH UNSCH PRN PRN Reason: PER HYPOGLYCEMIA PROTOCOL Glucagon (Glucagon Inj) 1 mg OTHER PRN PRN PRN Reason: for Hypoglycemia Protocol Insulin Aspart (Novolog Insulin Correctional Sugar Inj) 0 unit SQ ACHS [facility]; Protocol Exam Vital signs: Vital Signs 01/05/18 21:51 01/05/18 21:59 01/06/18 00:58 Temperature 98.0 F Pulse Rate 81 82 83 Respiratory Rate 18 18 18 Blood Pressure 95/55 L 124/61 Pulse Oximetry 95 95 01/06/18 01:44 01/06/18 03:24 01/06/18 04:13 Temperature Pulse Rate 85 84 85 Respiratory Rate 20 20 Blood Pressure 124/75 124/66 Pulse Oximetry 97 97 97 Intake & Output 01/05/18 01/06/18 01/06/18 18:59 06:59 18:59 Intake Total 1000 / 1000 Balance 1000 / 1000 Weight 79.379 kg Intake: IV 1000 / 1000 NS Inj 1,000 ML @ 125 mls/hr IV 1000 / 1000 .CONT .Q8H [facility] Rx#:[id number] Other: Weight On Admission 79.379 kg Narrative: GENERAL: This is a well-nourished, well-developed patient, in no apparent distress. SKIN: multiple skin tears bilateral upper and lower extremity bruise and skin tears. sutured laceration above left eye CARDIOVASCULAR: Regular rate and rhythm RESPIRATORY: Clear to auscultation. Breath sounds equal bilaterally. GASTROINTESTINAL: Abdomen soft, non-tender, nondistended. Normal active bowel sounds MUSCULOSKELETAL: Extremities without clubbing, cyanosis, or edema. NEURO: Alert & Oriented x4 to person, place, time, situation. Moves all ext x4 Results - Labs CBC & Chem 7: 01/06/18 00:08 01/06/18 05:51 Labs: Laboratory Results - last 24 hr 01/06/18 01/06/18 01/06/18 00:08 00:08 00:08 WBC RBC Hgb Hct MCV MCH MCHC RDW Plt Count MPV Neut % (Auto) Lymph % (Auto) [place] % (Auto) Eos % (Auto) Baso % (Auto) Neut # (Auto) Lymph # (Auto) [place] # (Auto) Eos # (Auto) Baso # (Auto) WBC Differential Differential Comment PT 11.6 INR 1.1 APTT 22.7 L Sodium 142 Potassium 4.5 Chloride 107 Carbon Dioxide 22.3 Anion Gap 13 BUN 28 H Creatinine 1.43 H Estimated GFR 49 L POC Glucose Random Glucose 123 H Calcium 8.9 Total Bilirubin 0.6 AST 34 ALT 24 Alkaline Phosphatase 38 L Troponin I Less than 0.02 L B-Natriuretic Peptide 10 Total Protein 7.2 Albumin 3.4 Triglycerides Cholesterol LDL Cholesterol, Calc HDL Cholesterol Cholesterol/HDL Ratio 01/06/18 01/06/18 01/06/18 00:08 05:51 08:13 WBC 12.2 H RBC 3.72 L Hgb 12.4 L Hct 36.6 L MCV 98.5 MCH 33.4 MCHC 33.9 RDW 14.4 Plt Count 287 MPV 9.3 Neut % (Auto) 76.0 H Lymph % (Auto) 12.9 [place] % (Auto) 9.1 H Eos % (Auto) 1.0 Baso % (Auto) 1.0 Neut # (Auto) 9.3 H Lymph # (Auto) 1.6 [place] # (Auto) 1.1 H Eos # (Auto) 0.1 Baso # (Auto) 0.1 WBC Differential . Differential Comment Auto diff final PT INR APTT Sodium 141 Potassium 4.2 Chloride 108 H Carbon Dioxide 24.5 Anion Gap 9 BUN 23 H Creatinine 1.08 Estimated GFR 68 L POC Glucose 162 H Random Glucose 150 H Calcium 9.0 Total Bilirubin AST ALT Alkaline Phosphatase Troponin I B-Natriuretic Peptide Total Protein Albumin Triglycerides 143 Cholesterol 111 L LDL Cholesterol, Calc 40 HDL Cholesterol 42.1 Cholesterol/HDL Ratio 2.63 - Imaging Impressions Head CT 01/06/18 00:00 CONCLUSION: 1. No acute abnormality. 2. Cortical atrophy. 3. Possible left frontal scalp injury. . Caprini VTE Risk Assessment Caprini Risk Assessment Model: Point Value = 1 Point Value = 2 Point Value = 3 Point Value = 5 Age 41-60 Minor surgery BMI > 25 kg/m2 Swollen legs Varicose veins or History of unexplained or recurrent spontaneous Oral contraceptives or hormone replacement Sepsis (< 1 month) Serious lung disease, including pneumonia (< 1 month) Abnormal pulmonary function Acute myocardial infarction Congestive heart failure (< 1 month) History of inflammatory bowel disease Medical patient at bed rest Age 61-74 Arthroscopic surgery Major open surgery (> 45 min) Laparoscopic surgery (> 45 min) Malignancy Confined to bed (> 72 hours) Immobilizing plaster cast Central venous access Age >= 75 History of VTE Family history of VTE Factor V Leiden Prothrombin [id number] Lupus anticoagulant Anticardiolipin antibodies Elevated serum homocysteine Heparin-induced thrombocytopenia Other congenital or acquired thrombophilia Stroke (< 1 month) Elective arthroplasty Hip, pelvis, or leg fracture Acute spinal cord injury (< 1 month) Prophylaxis Regimen: Total Risk Factor Score Risk Level Prophylaxis Regimen 0-1 Low Early ambulation 2 Moderate Order ONE of the following: *Sequential Compression Device (SCD) *Heparin 5000 units SQ BID 3-4 Higher Order ONE of the following medications: *Heparin 5000 units SQ TID *Enoxaparin/Lovenox 40 mg SQ daily (WT < 150 kg, CrCl > 30 mL/min) *Enoxaparin/Lovenox 30 mg SQ daily (WT < 150 kg, CrCl > 10-29 mL/min) *Enoxaparin/Lovenox 30 mg SQ BID (WT < 150 kg, CrCl > 30 mL/min) AND/OR *Sequential Compression Device (SCD) 5 or more Highest Order ONE of the following medications: *Heparin 5000 units SQ TID (Preferred with Epidurals) *Enoxaparin/Lovenox 40 mg SQ daily (WT < 150 kg, CrCl > 30 mL/min) *Enoxaparin/Lovenox 30 mg SQ daily (WT < 150 kg, CrCl > 10-29 mL/min) *Enoxaparin/Lovenox 30 mg SQ BID (WT < 150 kg, CrCl > 30 mL/min) AND *Sequential Compression Device (SCD) Assessment and Plan - Assessment (1) Syncope Code(s): R55 - Syncope and collapse Status: Acute Plan: This is a 67-year-old male patient with a past medical history which includes rheumatoid arthritis, diabetes mellitus on oral medications and insulin, hypertension, hyperlipidemia, anxiety/depression, bipolar disorder, chronic kidney disease stage II, degenerative disc disease, long-term use of narcotics, mitral regurgitation, Dick, squamous cell carcinoma, B12 deficiency, vitamin D deficiency and tobacco dependency. Patient presents to the emergency department with reports of recurrent syncopal episodes over the past 2 weeks. In fact patient reports he had 2 syncopal episodes on January 05 when he decided to come to the emergency department. Patient also suffered a laceration above the left eyebrow which was sutured in the emergency department. Upon arrival to the emergency department patient's blood pressure was 95/55. CT the head reviewed and reveals: No acute abnormality, Cortical atrophy and Possible left frontal scalp injury. Syncope admit to observation monitor on telemetry serial neuro checks orthostatic vital signs pending 2 D echocardiogram: The left ventricular systolic function is normal with an estimated ejection fraction in the range of 55-60%. No regional wall motion abnormalities are present. Normal left ventricular size and wall thickness Grade I diastolic dysfunction. No significant valvular heart disease. Normal estimated pulmonary pressures. IVC is normal size. CT the head reviewed and reveals: No acute abnormality, Cortical atrophy and Possible left frontal scalp injury US bilateral carotid arteries: 1. Right Internal Carotid Artery: Findings indicate <50% stenosis. 2. Left Internal Carotid Artery: Findings indicate <50% stenosis. HA1c 7.1 Consult PT BUN 28, creatinine 1.43, estimated GFR 49- ? dehydration IVFs NS at 125mL/H x 1L Laceration sutured by ER PA- see procedure note for details Rheumatoid arthritis Patient takes methotrexate weekly at home Diabetes mellitus on oral medications and insulin diabetic diet Accuchecks ACHS with SSI coverage Hypertension Patient presented with recurrent syncope and hypotension BP on arrival to the ER 95/55 Hold home home lisinopril 20mg daily and metoprolol 12.5mg BID Hyperlipidemia Continue home rosuvastatin and fenofibrate Anxiety/depression Bipolar disorder continue patient's home doxepin 160 mg PO QHS and quetiapine 150mg QHS Chronic pain with long-term use of narcotics Hold patient's home morphine ER 30 mg PO QAM and 15mg PO QPM daily Ultram as needed for pain decrease home gabapentin to 300 mg PO TID Tobacco dependency patient counselled encouraged to abstain DVT prophylaxis with SCDs Plan to monitor overnight plan to DC to SNF in AM (2) Laceration of forehead, left, complicated Code(s): S01.81XA - Laceration without foreign body of other part of head, initial encounter Status: Acute <Shane Mejia - Last Filed: 01/07/18 11:13> History of Present Illness Primary Care Physician: Hayes Haynes - Diagnosis (1) Syncope (2) Laceration of forehead, left, complicated Inpatient Certification: I certify that the inpatient services were ordered in accordance with Medicare regulations governing the order. This includes certification that hospital inpatient services are reasonable and necessary and in the case of services not specified as inpatient-only under 42 CFR 419.22(n), that they are appropriately provided as inpatient services in accordance to with the 2-midnight benchmark under 43 CFR 412.3(e) [facility] - Medical History Medical History: Medical History (Last Reviewed 01/06/18 @ 16:25 by Yarelis Briggs) Anxiety Bipolar 1 disorder Diabetes HTN (hypertension) Hyperlipemia Medical history unknown Medications and Allergies Active Medications: Active Medications Atorvastatin Calcium (Lipitor) 40 mg PO DAILY [facility] Last Admin: 01/07/18 09:26 Dose: 40 mg Dextrose (D50w Vial) 50 ml IV.PUSH UNSCH PRN PRN Reason: PER HYPOGLYCEMIA PROTOCOL Doxepin HCl (Sinequan) 10 mg PO HS [facility] Last Admin: 01/06/18 20:54 Dose: 10 mg Doxepin HCl (Sinequan) 150 mg PO HS [facility] Last Admin: 01/06/18 20:53 Dose: 150 mg Fenofibrate (Tricor) 145 mg PO DAILY [facility] Last Admin: 01/07/18 09:27 Dose: 145 mg Gabapentin (Neurontin) 300 mg PO TID [facility] Last Admin: 01/07/18 09:26 Dose: 300 mg Glucagon (Glucagon Inj) 1 mg OTHER PRN PRN PRN Reason: for Hypoglycemia Protocol Insulin Aspart (Novolog Insulin Correctional Sugar Inj) 0 unit SQ ACHS [facility]; Protocol Last Admin: 01/07/18 09:26 Dose: 1 unit Lamotrigine (Lamictal) 100 mg PO TID [facility] Last Admin: 01/07/18 09:26 Dose: 100 mg Pantoprazole Sodium (Protonix) 40 mg PO DAILY [facility] Last Admin: 01/07/18 09:27 Dose: 40 mg Pt Own Med [Xeljanz (] 5 Mg) 0 each PO Q12H [facility] Last Admin: 01/07/18 08:36 Dose: Not Given Quetiapine Fumarate (Seroquel) 150 mg PO HS [facility] Last Admin: 01/06/18 20:54 Dose: 150 mg Tramadol HCl (Ultram) 50 mg PO Q8H PRN PRN Reason: pain 1-10, Exam Vital signs: Vital Signs 01/06/18 12:00 01/06/18 13:50 01/06/18 13:56 Temperature 98.2 F Pulse Rate 87 92 H Respiratory Rate 18 Blood Pressure 124/71 Pulse Oximetry 95 95 01/06/18 16:00 01/06/18 20:00 01/06/18 23:23 Temperature 98.1 F 98.5 F 97.9 F Pulse Rate 99 H 88 94 H Respiratory Rate 18 18 17 Blood Pressure 124/62 111/63 115/68 Pulse Oximetry 98 95 01/07/18 04:00 01/07/18 07:54 Temperature 98.0 F 98.3 F Pulse Rate 87 89 Respiratory Rate 18 16 Blood Pressure 102/63 114/71 Pulse Oximetry 95 94 L Intake & Output 01/06/18 01/07/18 01/07/18 18:59 06:59 18:59 Intake Total 960 / 960 140 / 140 Output Total 1150 / 1150 Balance -190 / -190 140 / 140 Weight 79.379 kg Intake: Oral 960 / 960 140 / 140 Output: Urine 1150 / 1150 Other: # Voids 1 2 Date of Last Bowel Movement 01/04/18 Results - Labs CBC & Chem 7: 01/07/18 09:53 01/06/18 05:51 Labs: Laboratory Results - last 24 hr 01/06/18 01/06/18 01/06/18 05:51 12:45 17:18 WBC RBC Hgb Hct MCV MCH MCHC RDW Plt Count MPV Neut % (Auto) Lymph % (Auto) [place] % (Auto) Eos % (Auto) Baso % (Auto) Neut # (Auto) Lymph # (Auto) [place] # (Auto) Eos # (Auto) Baso # (Auto) WBC Differential Differential Comment POC Glucose 145 H 153 H Hemoglobin A1c 7.1 H 01/06/18 01/07/18 01/07/18 20:50 07:41 09:53 WBC 7.1 RBC 3.94 L Hgb 13.1 Hct 39.4 MCV 99.8 MCH 33.2 MCHC 33.3 RDW 14.2 Plt Count 318 MPV 8.7 Neut % (Auto) 73.4 H Lymph % (Auto) 13.3 [place] % (Auto) 10.5 H Eos % (Auto) 2.1 Baso % (Auto) 0.7 Neut # (Auto) 5.2 Lymph # (Auto) 0.9 L [place] # (Auto) 0.7 Eos # (Auto) 0.2 Baso # (Auto) 0.0 WBC Differential . Differential Comment Auto diff final POC Glucose 142 H 159 H Hemoglobin A1c Caprini VTE Risk Assessment Caprini VTE Risk Assessment: Moderate/High Risk (score >= 2) Caprini Risk Assessment Model: Point Value = 1 Point Value = 2 Point Value = 3 Point Value = 5 Age 41-60 Minor surgery BMI > 25 kg/m2 Swollen legs Varicose veins or History of unexplained or recurrent spontaneous Oral contraceptives or hormone replacement Sepsis (< 1 month) Serious lung disease, including pneumonia (< 1 month) Abnormal pulmonary function Acute myocardial infarction Congestive heart failure (< 1 month) History of inflammatory bowel disease Medical patient at bed rest Age 61-74 Arthroscopic surgery Major open surgery (> 45 min) Laparoscopic surgery (> 45 min) Malignancy Confined to bed (> 72 hours) Immobilizing plaster cast Central venous access Age >= 75 History of VTE Family history of VTE Factor V Leiden Prothrombin [id number] Lupus anticoagulant Anticardiolipin antibodies Elevated serum homocysteine Heparin-induced thrombocytopenia Other congenital or acquired thrombophilia Stroke (< 1 month) Elective arthroplasty Hip, pelvis, or leg fracture Acute spinal cord injury (< 1 month) Prophylaxis Regimen: Total Risk Factor Score Risk Level Prophylaxis Regimen 0-1 Low Early ambulation 2 Moderate Order ONE of the following: *Sequential Compression Device (SCD) *Heparin 5000 units SQ BID 3-4 Higher Order ONE of the following medications: *Heparin 5000 units SQ TID *Enoxaparin/Lovenox 40 mg SQ daily (WT < 150 kg, CrCl > 30 mL/min) *Enoxaparin/Lovenox 30 mg SQ daily (WT < 150 kg, CrCl > 10-29 mL/min) *Enoxaparin/Lovenox 30 mg SQ BID (WT < 150 kg, CrCl > 30 mL/min) AND/OR *Sequential Compression Device (SCD) 5 or more Highest Order ONE of the following medications: *Heparin 5000 units SQ TID (Preferred with Epidurals) *Enoxaparin/Lovenox 40 mg SQ daily (WT < 150 kg, CrCl > 30 mL/min) *Enoxaparin/Lovenox 30 mg SQ daily (WT < 150 kg, CrCl > 10-29 mL/min) *Enoxaparin/Lovenox 30 mg SQ BID (WT < 150 kg, CrCl > 30 mL/min) AND *Sequential Compression Device (SCD) Assessment and Plan - Assessment (1) Syncope Code(s): R55 - Syncope and collapse Status: Acute (2) Laceration of forehead, left, complicated Code(s): S01.81XA - Laceration without foreign body of other part of head, initial encounter Status: Acute - Attending Attestation Patient examined. Assessment and plan formulated with Nely PALMER I agree with the above. <Nely Poon W - Last Filed: 01/06/18 18:23> (1) Syncope Qualifiers: Syncope type: unspecified Qualified Code(s): R55 - Syncope and collapse (2) Laceration of forehead, left, complicated Qualifiers: Encounter type: initial encounter Qualified Code(s): S01.81XA - Laceration without foreign body of other part of head, initial encounter <Shane Mejia B - Last Filed: 01/07/18 11:13> (1) Syncope Qualifiers: Syncope type: unspecified Qualified Code(s): R55 - Syncope and collapse (2) Laceration of forehead, left, complicated Qualifiers: Encounter type: initial encounter Qualified Code(s): S01.81XA - Laceration without foreign body of other part of head, initial encounter
--- NOTE | 2018-01-06 10:27 | US ---
EXAM DATE: 01/06/2018 3:40 AM EDT AGE/SEX: 67 years / Male INDICATIONS: Syncope. CLINICAL DATA: This is the patient's initial encounter. Patient reports that signs and symptoms have been present for 2 weeks and indicates a pain score of 0/10. MEDICAL/SURGICAL HISTORY: . Anxiety. Bipolar I disorder. Diabetes. Hypertension. Hyperlipid emia. Tobacco abuse. Rheumatoid arthritis. None. COMPARISON: . VELOCITY PARAMETERS: ICA/CCA Ratio: Right 0.8 , Left 0.8 ICA: Right 70 cm/sec, Left 72 cm/sec CCA: Right 89 cm/sec, Left 86 cm/sec ECA: Right 121 cm/sec, Left 128 cm/sec Vertebral: Right 45 cm/sec antegrade, Left 40 cm/sec antegrade FINDINGS: Right Carotid: There is minimal calcified plaque in the carotid bulb.The waveforms are within normal limits. Left Carotid: There is mild calcified and noncalcified plaque in the carotid bulb. The waveforms are within normal limits. Other: None. CONCLUSION: 1. Right Internal Carotid Artery: Findings indicate <50% stenosis. 2. Left Internal Carotid Artery: Findings indicate <50% stenosis. Electronically signed by: Ashok Lawrence MD 01/06/2018 10:25 AM EDT
--- NOTE | 2018-01-06 10:51 | ECHRPT ---
Indication: SHORTNESS OF BREATH CONCLUSIONS The left ventricular systolic function is normal with an estimated ejection fraction in the range of 55-60%. No regional wall motion abnormalities are present. Normal left ventricular size and wall thickness Grade I diastolic dysfunction. No significant valvular heart disease. Normal estimated pulmonary pressures. IVC is normal size. BP: / HR: Rhythm: Other MEASUREMENTS (Male / Female) Normal Values Technical Quality:Technically difficult study 2D ECHO LV Diastolic Diameter PLAX 4.6 cm 4.2 - 5.9 / 3.9 - 5.3 cm LV Systolic Diameter PLAX 3.5 cm IVS Diastolic Thickness 1.1 cm 0.6 - 1.0 / 0.6 - 0.9 cm LVPW Diastolic Thickness 1.1 cm 0.6 - 1.0 / 0.6 - 0.9 cm LV Relative Wall Thickness 0.5 LVOT Diameter 2.1 cm LV Ejection Fraction MOD 4C 57.1 % LV Ejection Fraction 4C AL 61.1 % M-MODE IVS Diastolic Thickness MM 1.1 cm 0.6 - 1.0 / 0.6 - 0.9 cm Aortic Root Diameter MM 2.5 cm LA Systolic Diameter MM 3.6 cm LA Ao Ratio MM 1.4 AV Cusp Separation MM 1.9 cm DOPPLER AV Peak Velocity 163.0 cm/s AV Peak Gradient 10.6 mmHg LVOT Peak Velocity 114.0 cm/s LVOT Peak Gradient 5.2 mmHg AV Area Cont Eq pk 2.4 cm MV Area PHT 3.3 cm Mitral E Point Velocity 76.0 cm/s Mitral A Point Velocity 89.3 cm/s Mitral E to A Ratio 0.9 LV E' Lateral Velocity 11.2 cm/s Mitral E to LV E' Lateral Ratio 6.8 LV E' Septal Velocity 7.0 cm/s Mitral E to LV E' Septal Ratio 10.8 TR Peak Velocity 214.0 cm/s TR Peak Gradient 18.3 mmHg PV Peak Velocity 105.0 cm/s PV Peak Gradient 4.4 mmHg FINDINGS LEFT VENTRICLE The left ventricular systolic function is normal with an estimated ejection fraction in the range of 55-60%. Wall thickness is normal. Normal left ventricular size. No regional wall motion abnormalities are present. RIGHT VENTRICLE Normal right ventricular size and systolic function. LEFT ATRIUM The left atrial size is normal. RIGHT ATRIUM The right atrial size is normal. ATRIAL SEPTUM Normal atrial septal thickness without atrial level shunting by limited color doppler interrogation. AORTA The aortic root and proximal ascending aorta are normal in size on limited imaging. MITRAL VALVE Structurally normal mitral valve. No mitral valve stenosis or regurgitation. AORTIC VALVE Trileaflet aortic valve. Aortic valve sclerosis is present. TRICUSPID VALVE Structurally normal tricuspid valve. There is trace tricuspid valve regurgitation. Normal estimated pulmonary pressures. PULMONARY VALVE The pulmonary valve is not well visualized. VESSELS The inferior vena cava is normal in size. PERICARDIUM No pericardial effusion. [place] Amanda MD (Electronically Signed) Final Date:06 January 2018 10:50
[2018-01-06 13:33] LABS: Hemoglobin A1c 7.1 % (4.3-6.0)
[2018-01-06] MEDS: lamoTRIgine 100 MG Tablet PO SCH ×2 (13:58→18:22)
[2018-01-06] MEDS: Gabapentin 300 MG Capsule PO SCH (18:22)
[2018-01-06] MEDS ORDERED: QUEtiapine 100 MG Tablet PO SCH (21:00)
[2018-01-07] MEDS ORDERED: Fenofibrate 145 MG Tablet PO SCH (09:00)
[2018-01-07] MEDS ORDERED: XELJANZ 5 MG PO SCH (09:00)
[2018-01-07] MEDS: Gabapentin 300 MG Capsule PO SCH ×2 (09:26→13:55)
[2018-01-07] MEDS: Insulin NovoLOG Aspart Correctional Sugar Inj SQ SCH ×2 (09:26→13:53)
[2018-01-07] MEDS: lamoTRIgine 100 MG Tablet PO SCH ×2 (09:26→13:55)
[2018-01-07 10:17] LABS: Baso % (Auto) 0.7 % (0.0-2.0); Eos # (Auto) 0.2 th/mm3 (0.0-0.4); Eos % (Auto) 2.1 % (0.0-4.0); Hematocrit 39.4 % (39.0-51.0); Hemoglobin 13.1 gm/dL (13.0-17.0); Lymph # (Auto) 0.9 th/mm3 (1.0-4.8); Lymph % (Auto) 13.3 % (9.0-44.0); Mean Corpuscular HGB Conc 33.3 % (32.0-36.0); Mean Corpuscular Hemoglobin 33.2 pg (27.0-34.0); Mean Corpuscular Volume 99.8 fL (80.0-100.0); Mean Platelet Volume 8.7 fL (7.0-11.0); Mono # (Auto) 0.7 th/mm3 (0.0-0.9); Mono % (Auto) 10.5 % (0.0-8.0); Neut # (Auto) 5.2 th/mm3 (1.8-7.7); Neut % (Auto) 73.4 % (16.0-70.0); Platelet Count 318 th/mm3 (150-450); Red Blood Count 3.94 mil/mm3 (4.50-5.90); Red Cell Distribution Width 14.2 % (11.6-17.2); White Blood Count 7.1 th/mm3 (4.0-11.0)
--- NOTE | 2018-01-07 10:56 | P.DS ---
<Nely Poon W - Last Filed: 01/07/18 10:48> Date of admission: 01/06/18 03:37 Primary care physician: Hayes Haynes Attending physician on discharge: Shane Mejia Anticipated date of discharge: 01/07/18 Brief History from admission: This is a 67-year-old male patient with a past medical history which includes rheumatoid arthritis, diabetes mellitus on oral medications and insulin, hypertension, hyperlipidemia, anxiety/depression, bipolar disorder, chronic kidney disease stage II, degenerative disc disease, long-term use of narcotics, mitral regurgitation, Dick, squamous cell carcinoma, B12 deficiency, vitamin D deficiency and tobacco dependency. Patient presents to the emergency department with reports of recurrent syncopal episodes over the past 2 weeks. In fact patient reports he had 2 syncopal episodes on January 05 when he decided to come to the emergency department. Patient also suffered a laceration above the left eyebrow which was sutured in the emergency department. Upon arrival to the emergency department patient's blood pressure was 95/55. CT the head reviewed and reveals: No acute abnormality, Cortical atrophy and Possible left frontal scalp injury. PMH: rheumatoid arthritis, diabetes mellitus on oral medications and insulin, hypertension, hyperlipidemia, anxiety/depression, bipolar disorder, chronic kidney disease stage II, degenerative disc disease, long-term use of narcotics, mitral regurgitation, Dick, squamous cell carcinoma, B12 deficiency, vitamin D deficiency and tobacco dependency PSxH: Complete colonoscopy, EGD with biopsy, paravertebral nerve block facet joint, Rhizotomy Social history Denies current EtOH use drink heavily from ages [age] Current daily tobacco use 1 pack a day Denies illicit drug use FMH: Reviewed and noncontributory DS: Diagnosis - Discharge Diagnosis (1) Syncope Status: Acute (2) Laceration of forehead, left, complicated Status: Acute DS: Medications - Discharge Medications Prescriptions: doxepin 150 mg PO HS PRN #14 tab PRN Reason: Agitation tramadol [Ultram] 50 mg PO Q8H PRN #90 tab PRN Reason: pain 1-10, DS: Summary Hospital Course: This is a 67-year-old male patient with a past medical history which includes rheumatoid arthritis, diabetes mellitus on oral medications and insulin, hypertension, hyperlipidemia, anxiety/depression, bipolar disorder, chronic kidney disease stage II, degenerative disc disease, long-term use of narcotics, mitral regurgitation, Dick, squamous cell carcinoma, B12 deficiency, vitamin D deficiency and tobacco dependency. Patient presents to the emergency department with reports of recurrent syncopal episodes over the past 2 weeks. In fact patient reports he had 2 syncopal episodes on January 05 when he decided to come to the emergency department. Patient also suffered a laceration above the left eyebrow which was sutured in the emergency department. Upon arrival to the emergency department patient's blood pressure was 95/55. CT the head reviewed and reveals: No acute abnormality, Cortical atrophy and Possible left frontal scalp injury. Syncope- likely secondary to polypharmacy admit to observation monitor on telemetry serial neuro checks 2 D echocardiogram: The left ventricular systolic function is normal with an estimated ejection fraction in the range of 55-60%. No regional wall motion abnormalities are present. Normal left ventricular size and wall thickness Grade I diastolic dysfunction. No significant valvular heart disease. Normal estimated pulmonary pressures. IVC is normal size. CT the head reviewed and reveals: No acute abnormality, Cortical atrophy and Possible left frontal scalp injury US bilateral carotid arteries: 1. Right Internal Carotid Artery: Findings indicate <50% stenosis. 2. Left Internal Carotid Artery: Findings indicate <50% stenosis. HA1c 7.1 Consult PT BUN 28, creatinine 1.43, estimated GFR 49- ? dehydration IVFs NS at 125mL/H x 1L DC'd patient's Morphine, Lisinopril, metoprolol Decrease patient's gabapentin to 300 mg TID from 600 mg PO TID Laceration sutured by ER PA- see procedure note for details Rheumatoid arthritis Patient takes methotrexate weekly at home Diabetes mellitus on oral medications and insulin diabetic diet Accuchecks ACHS with SSI coverage Hypertension Patient presented with recurrent syncope and hypotension BP on arrival to the ER / Hold home home lisinopril 20mg daily and metoprolol 12.5mg BID Hyperlipidemia Continue home rosuvastatin and fenofibrate Anxiety/depression Bipolar disorder continue patient's home doxepin 160 mg PO QHS and quetiapine 150mg QHS Chronic pain with long-term use of narcotics Hold patient's home morphine ER 30 mg PO QAM and 15mg PO QPM daily Ultram as needed for pain decrease home gabapentin to 300 mg PO TID Tobacco dependency patient counselled encouraged to abstain DVT prophylaxis with SCDs - Time Spent with Patient Total time spent providing and/or coordinating discharge services: Greater than 30 minutes - Quality: VTE Deep Vein Thrombosis/Pulmonary Embolism Present on Admission: No Exam Vital signs: Vital Signs 01/06/18 12:00 01/06/18 13:50 01/06/18 13:56 Temperature 98.2 F Pulse Rate 87 92 H Respiratory Rate 18 Blood Pressure 124/71 Pulse Oximetry 95 95 01/06/18 16:00 01/06/18 20:00 01/06/18 23:23 Temperature 98.1 F 98.5 F 97.9 F Pulse Rate 99 H 88 94 H Respiratory Rate 18 18 17 Blood Pressure 124/62 111/63 115/68 Pulse Oximetry 98 95 01/07/18 04:00 01/07/18 07:54 Temperature 98.0 F 98.3 F Pulse Rate 87 89 Respiratory Rate 18 16 Blood Pressure 102/63 114/71 Pulse Oximetry 95 94 L Intake & Output 01/06/18 01/07/18 01/07/18 18:59 06:59 18:59 Intake Total 960 / 960 140 / 140 Output Total 1150 / 1150 Balance -190 / -190 140 / 140 Weight 79.379 kg Intake: Oral 960 / 960 140 / 140 Output: Urine 1150 / 1150 Other: # Voids 1 2 Date of Last Bowel Movement 01/04/18 Narrative: GENERAL: This is a well-nourished, well-developed patient, in no apparent distress. SKIN: bilateral upper and lower extremity healing ecchymosis and skin tears. sutured laceration above left eye CARDIOVASCULAR: Regular rate and rhythm RESPIRATORY: Clear to auscultation. Breath sounds equal bilaterally. GASTROINTESTINAL: Abdomen soft, non-tender, nondistended. Normal active bowel sounds MUSCULOSKELETAL: Extremities without clubbing, cyanosis, or edema. NEURO: Alert & Oriented x4 to person, place, time, situation. Moves all ext x4 Results Procedures completed during hospitalization: None Labs on day of discharge: Labs from last 24 hours 01/07/18 01/07/18 01/06/18 09:53 07:41 20:50 WBC 7.1 RBC 3.94 L Hgb 13.1 Hct 39.4 MCV 99.8 MCH 33.2 MCHC 33.3 RDW 14.2 Plt Count 318 MPV 8.7 Neut % (Auto) 73.4 H Lymph % (Auto) 13.3 [place] % (Auto) 10.5 H Eos % (Auto) 2.1 Baso % (Auto) 0.7 Neut # (Auto) 5.2 Lymph # (Auto) 0.9 L [place] # (Auto) 0.7 Eos # (Auto) 0.2 Baso # (Auto) 0.0 WBC Differential . Differential Comment Auto diff final POC Glucose 159 H 142 H Hemoglobin A1c 01/06/18 01/06/18 01/06/18 17:18 12:45 05:51 WBC RBC Hgb Hct MCV MCH MCHC RDW Plt Count MPV Neut % (Auto) Lymph % (Auto) [place] % (Auto) Eos % (Auto) Baso % (Auto) Neut # (Auto) Lymph # (Auto) [place] # (Auto) Eos # (Auto) Baso # (Auto) WBC Differential Differential Comment POC Glucose 153 H 145 H Hemoglobin A1c 7.1 H - Impressions ITS Impressions Head CT 01/06/18 00:00 CONCLUSION: 1. No acute abnormality. 2. Cortical atrophy. 3. Possible left frontal scalp injury. . Carotid Doppler Study 01/06/18 03:40 CONCLUSION: 1. Right Internal Carotid Artery: Findings indicate <50% stenosis. 2. Left Internal Carotid Artery: Findings indicate <50% stenosis. <Shane Mejia - Last Filed: 01/07/18 11:15> Date of admission: 01/06/18 03:37 Primary care physician: Hayes Haynes DS: Diagnosis - Discharge Diagnosis (1) Syncope Status: Acute (2) Laceration of forehead, left, complicated Status: Acute DS: Summary Hospital Course: Patient examined. Assessment and plan formulated with Nely Poon PA-C. I agree with the above. Pt has multiple areas of skin tears particularly on his arms. Pt reports recurrent falls at home. Pt appears to have issues related to polypharmacy. Pt gabapentin decreased from 600mg TID to 300mg TID. MS Contin stopped. Pt placed on prn ultram. - Time Spent with Patient Total time spent providing and/or coordinating discharge services: Exam Vital signs: Vital Signs 01/06/18 12:00 01/06/18 13:50 01/06/18 13:56 Temperature 98.2 F Pulse Rate 87 92 H Respiratory Rate 18 Blood Pressure 124/71 Pulse Oximetry 95 95 01/06/18 16:00 01/06/18 20:00 01/06/18 23:23 Temperature 98.1 F 98.5 F 97.9 F Pulse Rate 99 H 88 94 H Respiratory Rate 18 18 17 Blood Pressure 124/62 111/63 115/68 Pulse Oximetry 98 95 01/07/18 04:00 01/07/18 07:54 Temperature 98.0 F 98.3 F Pulse Rate 87 89 Respiratory Rate 18 16 Blood Pressure 102/63 114/71 Pulse Oximetry 95 94 L Intake & Output 01/06/18 01/07/18 01/07/18 18:59 06:59 18:59 Intake Total 960 / 960 140 / 140 Output Total 1150 / 1150 Balance -190 / -190 140 / 140 Weight 79.379 kg Intake: Oral 960 / 960 140 / 140 Output: Urine 1150 / 1150 Other: # Voids 1 2 Date of Last Bowel Movement 01/04/18 Results Labs on day of discharge: Labs from last 24 hours 01/07/18 01/07/18 01/06/18 09:53 07:41 20:50 WBC 7.1 RBC 3.94 L Hgb 13.1 Hct 39.4 MCV 99.8 MCH 33.2 MCHC 33.3 RDW 14.2 Plt Count 318 MPV 8.7 Neut % (Auto) 73.4 H Lymph % (Auto) 13.3 [place] % (Auto) 10.5 H Eos % (Auto) 2.1 Baso % (Auto) 0.7 Neut # (Auto) 5.2 Lymph # (Auto) 0.9 L [place] # (Auto) 0.7 Eos # (Auto) 0.2 Baso # (Auto) 0.0 WBC Differential . Differential Comment Auto diff final POC Glucose 159 H 142 H Hemoglobin A1c 01/06/18 01/06/18 01/06/18 17:18 12:45 05:51 WBC RBC Hgb Hct MCV MCH MCHC RDW Plt Count MPV Neut % (Auto) Lymph % (Auto) [place] % (Auto) Eos % (Auto) Baso % (Auto) Neut # (Auto) Lymph # (Auto) [place] # (Auto) Eos # (Auto) Baso # (Auto) WBC Differential Differential Comment POC Glucose 153 H 145 H Hemoglobin A1c 7.1 H - Impressions ITS Impressions Head CT 01/06/18 00:00 CONCLUSION: 1. No acute abnormality. 2. Cortical atrophy. 3. Possible left frontal scalp injury. . Carotid Doppler Study 01/06/18 03:40 CONCLUSION: 1. Right Internal Carotid Artery: Findings indicate <50% stenosis. 2. Left Internal Carotid Artery: Findings indicate <50% stenosis. Discharge Plan - Discharge Order Discharge Orders: Discharge Order (Routine); Ordered 01/07/18 Ordered By: Nely Poon - Discharge Details Anticipated Discharge Date: 01/07/18 - Physicians Team Primary Care Provider: Hayes Haynes Attending Provider: Shane Mejia
[2018-01-07 11:40] VITALS: TEMP 98.2; O2SAT 96
[2018-01-07 15:49] VITALS: BP 111/70; PULSE 86; RESP 12
== END 2018-01-07 18:06 ==
LOC: NEPE 21:46 → NEDA 01-06 03:37 → INTOOBSV 01-06 03:39 → NEPHCDU 01-06 05:11
PROVIDERS: ADMIT Hospitalist; ATTEND Hospitalist

== ENCOUNTER 2018-01-23 12:10 | Observation (INO) ==
[2018-01-23] MEDS ORDERED: Sod Chloride 0.9% Inj 1,000 ML IV.SIG SCH ×2 (12:30→13:45)
--- NOTE | 2018-01-23 12:46 | ED ---
HPI General Chief complaint: Fall Stated complaint: Fall Time Seen by Provider: 01/23/18 12:26 Source: patient and EMS Mode of arrival: EMS Limitations: no limitations History of Present Illness HPI narrative: Patient is a 67-year-old male presenting to the emergency department for evaluation of weakness. Patient states his been ongoing for 1 month. Today he fell at approximately 3 AM this morning and could not get up. He was found by his home health nurse who called 911 was separately brought to the emergency department. On EMS arrival patient was tachycardic with a heart rate of 106-110, his systolic blood pressure was 100. Patient was recently discharged from rehab on Monday. He currently lives alone. Patient states that he has had a decreased appetite but forces himself to eat. Initially he had no complaints other than feeling weak. Patient takes morphine 30 mg in the morning and 15 at night as well as doxepin for sleep. Past medical history is significant for type 2 diabetes, hyperlipidemia, neuropathy, bipolar disorder. He has no other physical complaints at this time, he denies any shortness of breath, chest pain, fevers, chills, nausea today, he states that he did feel nauseated yesterday, and he has not had a bowel movement in 13 days. Onset (ago): hour(s) Associated symptoms: Reports loss of appetite, malaise, nausea/vomiting and weakness Treatments prior to arrival: Reports other (250ml NS) Related Data Home Medications Medication Instructions Recorded Confirmed alendronate 70 mg PO QWEEK 01/06/18 01/23/18 doxepin 10 mg PO HS 01/06/18 01/23/18 fenofibrate nanocrystallized 145 mg PO DAILY 01/06/18 01/23/18 lamotrigine 100 mg PO TID 01/06/18 01/23/18 methotrexate sodium 15 mg PO WEEKLY 01/06/18 01/23/18 pantoprazole 40 mg PO DAILY 01/06/18 01/23/18 quetiapine 150 mg PO HS 01/06/18 01/23/18 rosuvastatin 20 mg PO DAILY 01/06/18 01/23/18 tofacitinib [Xeljanz] 5 mg PO Q12H 01/06/18 01/23/18 glimepiride 2 mg PO QAM 01/23/18 01/23/18 insulin NPH and regular human 20 unit SUBCUT QPM 01/23/18 01/23/18 [Novolin 70/30 U-100 Insulin] insulin NPH and regular human 40 unit SUBCUT QAM 01/23/18 01/23/18 [Novolin 70/30 U-100 Insulin] metformin 1,000 mg PO BID 01/23/18 01/23/18 morphine 15 mg PO Q12H 01/23/18 01/23/18 Previous Rx's Medication Instructions Recorded doxepin 150 mg PO HS PRN #14 tab 01/07/18 gabapentin [Neurontin] 300 mg PO TID cap 01/07/18 insulin aspart U-100 [Novolog 0 unit SUBCUT ACHS ml 01/07/18 U-100 Insulin aspart] Allergies Allergy/AdvReac Type Severity Reaction Status Date / Time aspirin Allergy Severe RASH & Verified 01/23/18 14:45 DECREASED BP ibuprofen Allergy Severe DECREASED Verified 01/23/18 14:45 BLOOD PRESSURE penicillin G Allergy Severe PASSED OUT Verified 01/23/18 14:45 fish oil Allergy Unknown Abdominal Verified 01/23/18 14:45 Pain oxycodone AdvReac Unknown NAUSEA/VOMI Verified 01/23/18 14:45 TING Review of Systems ROS: all other systems reviewed are negative [facility] Medical History Medical History Anxiety (Acute) Bipolar 1 disorder (Acute) Diabetes (Acute) HTN (hypertension) (Acute) Hyperlipemia (Acute) Medical history unknown (Acute) Social History Social History Substance History: No History of Abuse Second Hand Smoke Exposure: No Smoking Status: Current every day smoker Tobacco Type: Cigarettes How Often Do You Have a Drink Containing Alcohol: Never Recent Travel in [facility] within the Last 8 Weeks: No Recent Out of Country Travel within the Last 8 Weeks: No Immunization History Tetanus Immunization: <5 Years Exam Narrative Exam Narrative: GENERAL: Well-developed, well-nourished, alert male. Presenting in no acute distress SKIN: Focused skin assessment warm/dry. MOUTH: Mucous membranes dry, no lesions, tongue and gums appear normal. HEAD: Atraumatic. Normocephalic. EYES: Pupils equal and round. No scleral icterus. No injection or drainage. ENT: No nasal bleeding or discharge. Mucous membranes pink and moist. NECK: Trachea midline. No JVD. CARDIOVASCULAR: Regular rate and rhythm. No murmur appreciated. RESPIRATORY: No accessory muscle use. Clear to auscultation. Breath sounds equal bilaterally. GASTROINTESTINAL: Abdomen soft, non-tender, nondistended. Hepatic and splenic margins not palpable. MUSCULOSKELETAL: No obvious deformities. No clubbing. No cyanosis. No edema. NEUROLOGICAL: Awake and alert x2. No obvious cranial nerve deficits. Motor grossly within normal limits. Normal speech. PSYCHIATRIC: Appropriate mood and affect; insight and judgment normal. Course Initial Documented Vital Signs Temperature 98.3 F 01/23/18 12:19 Pulse Rate 108 H 01/23/18 12:19 Respiratory Rate 20 01/23/18 12:19 Blood Pressure 110/61 01/23/18 12:19 Pulse Oximetry 94 L 01/23/18 12:19 Last Documented Vital Signs Temperature 98.3 F 01/23/18 12:19 Pulse Rate 93 H 01/23/18 15:24 Respiratory Rate 23 01/23/18 15:24 Blood Pressure 142/73 H 01/23/18 15:24 Pulse Oximetry 96 01/23/18 15:24 Medical Decision Making JUAN Attestation JUAN supervised visit: Yes Attestation: I, Dr. Castro, have reviewed the advance practice practitioner's documentation and am in agreement, met with the patient face to face, made the diagnosis, and the medical decision making was done by me. *My assessment and Findings: Patient with c/o of weakness with multiple syncopal episodes which has been progressing over the past 5-6 months. Patient came to the ER for evaluation as he fell and hit his head on a dresser and passed out. Plan for patient to be admitted to the hospital for syncope workup MDM Narrative Medical decision making narrative: Patient is a 67-year-old male presented to emerge department for evaluation of falls/syncopal episodes. Labs and imaging ordered and pending, patient was placed on telemetry monitoring continuous pulse oximetry. IV access established by EMS. Patient was given IV fluids in route, additional IV fluids have been ordered. Symptoms may be related to patient's use of narcotic medications. Labs reviewed, magnesium level is 1.4, 1 g rider was given. Lactic acid was elevated initially at 2.2, repeat lactic acid after IV fluid resuscitation was 1.9. CT the abdomen pelvis with no acute findings, specifically patient is not constipated nor does he have an obstruction as he reported that he has not had a bowel movement in [address] scan of the brain shows no acute findings. Patient will be admitted for observation for syncopal episodes again possibly related to narcotic use. Discussed with Dr. Knowles who accepted admission. Medical Screen Exam Complete: Yes Emergency Medical Condition: Yes Differential Diagnosis Differential Diagnosis: Metabolic abnormality versus medication overdose versus UTI versus pneumonia versus other Medical Records Medical records reviewed: Yes I reviewed the patient's medical records. Lab Data Lab results reviewed: Yes I reviewed the patient's lab results. Result diagrams: 01/23/18 12:35 01/23/18 12:27 Lab Results 01/23/18 01/23/18 01/23/18 Range/Units 12:27 12:27 12:35 WBC 8.5 (4.0-11.0) th/mm3 RBC 3.68 L (4.50-5.90) mil/mm3 Hgb 12.2 L (13.0-17.0) gm/dL Hct 36.3 L (39.0-51.0) % MCV 98.5 (80.0-100.0) fL MCH 33.2 (27.0-34.0) pg MCHC 33.7 (32.0-36.0) % RDW 14.4 (11.6-17.2) % Plt Count 300 (150-450) th/mm3 MPV 9.0 (7.0-11.0) fL Neut % (Auto) 71.8 H (16.0-70.0) % Lymph % (Auto) 20.6 (9.0-44.0) % [place] % (Auto) 5.9 (0.0-8.0) % Eos % (Auto) 1.2 (0.0-4.0) % Baso % (Auto) 0.5 (0.0-2.0) % Neut # (Auto) 6.1 (1.8-7.7) th/mm3 Lymph # (Auto) 1.8 (1.0-4.8) th/mm3 [place] # (Auto) 0.5 (0.0-0.9) th/mm3 Eos # (Auto) 0.1 (0.0-0.4) th/mm3 Baso # (Auto) 0.0 (0.0-0.2) th/mm3 WBC Differential . Differential Comment Auto diff final PT (9.8-11.6) sec INR Ratio APTT (24.3-30.1) sec Sodium 140 (136-145) meq/L Potassium 4.1 (3.5-5.1) meq/L Chloride 108 H (98-107) meq/L Carbon Dioxide 20.8 L (21.0-32.0) meq/L Anion Gap 11 (5-15) meq/L BUN 18 (7-18) mg/dL Creatinine 1.16 (0.60-1.30) mg/dL Estimated GFR 63 L (>89) mL/min Random Glucose 178 H (74-106) mg/dL Lactic Acid (0.4-2.0) mmol/L Calcium 8.9 (8.5-10.1) mg/dL Magnesium 1.4 L (1.5-2.5) mg/dL Total Bilirubin 0.4 (0.2-1.0) mg/dL AST 28 (15-37) U/L ALT 26 (12-78) U/L Alkaline Phosphatase 46 (45-117) U/L Total Creatine Kinase 194 (39-308) U/L Total Protein 6.9 (6.4-8.2) g/dL Albumin 3.3 L (3.4-5.0) g/dL Lipase 53 L (73-393) U/L Urine Color (Yellw/Straw) Urine Clarity (Clear) Urine pH (5.0-8.5) Ur Specific [place] (1.002-1.035) Urine Protein (Neg-Trace) mg/dL Urine Glucose (UA) (Negative) mg/dL Urine Ketones (Negative) mg/dL Urine Occult Blood (Negative) Urine Nitrate (Negative) Urine Bilirubin (Negative) Urine Urobilinogen (Less than 2) mg/dL Ur Leukocyte Esterase (Negative) Urine RBC (0-3) /hpf Urine WBC (0-5) /hpf Hyaline Casts (0-3) /lpf Urine Mucus (Occasional) /lpf Micro UA Comment Ur Microscopic Review Urine Culture Comments 01/23/18 01/23/18 01/23/18 Range/Units 12:35 12:37 12:41 WBC (4.0-11.0) th/mm3 RBC (4.50-5.90) mil/mm3 Hgb (13.0-17.0) gm/dL Hct (39.0-51.0) % MCV (80.0-100.0) fL MCH (27.0-34.0) pg MCHC (32.0-36.0) % RDW (11.6-17.2) % Plt Count (150-450) th/mm3 MPV (7.0-11.0) fL Neut % (Auto) (16.0-70.0) % Lymph % (Auto) (9.0-44.0) % [place] % (Auto) (0.0-8.0) % Eos % (Auto) (0.0-4.0) % Baso % (Auto) (0.0-2.0) % Neut # (Auto) (1.8-7.7) th/mm3 Lymph # (Auto) (1.0-4.8) th/mm3 [place] # (Auto) (0.0-0.9) th/mm3 Eos # (Auto) (0.0-0.4) th/mm3 Baso # (Auto) (0.0-0.2) th/mm3 WBC Differential Differential Comment PT 11.9 H (9.8-11.6) sec INR 1.2 Ratio APTT 25.0 (24.3-30.1) sec Sodium (136-145) meq/L Potassium (3.5-5.1) meq/L Chloride (98-107) meq/L Carbon Dioxide (21.0-32.0) meq/L Anion Gap (5-15) meq/L BUN (7-18) mg/dL Creatinine (0.60-1.30) mg/dL Estimated GFR (>89) mL/min Random Glucose (74-106) mg/dL Lactic Acid 2.2 H (0.4-2.0) mmol/L Calcium (8.5-10.1) mg/dL Magnesium (1.5-2.5) mg/dL Total Bilirubin (0.2-1.0) mg/dL AST (15-37) U/L ALT (12-78) U/L Alkaline Phosphatase (45-117) U/L Total Creatine Kinase (39-308) U/L Total Protein (6.4-8.2) g/dL Albumin (3.4-5.0) g/dL Lipase (73-393) U/L Urine Color Yellow (Yellw/Straw) Urine Clarity Hazy H (Clear) Urine pH 5.0 (5.0-8.5) Ur Specific [place] 1.020 (1.002-1.035) Urine Protein Negative (Neg-Trace) mg/dL Urine Glucose (UA) 50 (Negative) mg/dL Urine Ketones Negative (Negative) mg/dL Urine Occult Blood Negative (Negative) Urine Nitrate Negative (Negative) Urine Bilirubin Negative (Negative) Urine Urobilinogen Less than 2 (Less than 2) mg/dL Ur Leukocyte Esterase Negative (Negative) Urine RBC 1 (0-3) /hpf Urine WBC Less than 1 (0-5) /hpf Hyaline Casts 1 (0-3) /lpf Urine Mucus Few H (Occasional) /lpf Micro UA Comment Cath-culture not ind Ur Microscopic Review Not Reportable Urine Culture Comments Cath-cult not ind 01/23/18 Range/Units 15:21 WBC (4.0-11.0) th/mm3 RBC (4.50-5.90) mil/mm3 Hgb (13.0-17.0) gm/dL Hct (39.0-51.0) % MCV (80.0-100.0) fL MCH (27.0-34.0) pg MCHC (32.0-36.0) % RDW (11.6-17.2) % Plt Count (150-450) th/mm3 MPV (7.0-11.0) fL Neut % (Auto) (16.0-70.0) % Lymph % (Auto) (9.0-44.0) % [place] % (Auto) (0.0-8.0) % Eos % (Auto) (0.0-4.0) % Baso % (Auto) (0.0-2.0) % Neut # (Auto) (1.8-7.7) th/mm3 Lymph # (Auto) (1.0-4.8) th/mm3 [place] # (Auto) (0.0-0.9) th/mm3 Eos # (Auto) (0.0-0.4) th/mm3 Baso # (Auto) (0.0-0.2) th/mm3 WBC Differential Differential Comment PT (9.8-11.6) sec INR Ratio APTT (24.3-30.1) sec Sodium (136-145) meq/L Potassium (3.5-5.1) meq/L Chloride (98-107) meq/L Carbon Dioxide (21.0-32.0) meq/L Anion Gap (5-15) meq/L BUN (7-18) mg/dL Creatinine (0.60-1.30) mg/dL Estimated GFR (>89) mL/min Random Glucose (74-106) mg/dL Lactic Acid 1.9 (0.4-2.0) mmol/L Calcium (8.5-10.1) mg/dL Magnesium (1.5-2.5) mg/dL Total Bilirubin (0.2-1.0) mg/dL AST (15-37) U/L ALT (12-78) U/L Alkaline Phosphatase (45-117) U/L Total Creatine Kinase (39-308) U/L Total Protein (6.4-8.2) g/dL Albumin (3.4-5.0) g/dL Lipase (73-393) U/L Urine Color (Yellw/Straw) Urine Clarity (Clear) Urine pH (5.0-8.5) Ur Specific [place] (1.002-1.035) Urine Protein (Neg-Trace) mg/dL Urine Glucose (UA) (Negative) mg/dL Urine Ketones (Negative) mg/dL Urine Occult Blood (Negative) Urine Nitrate (Negative) Urine Bilirubin (Negative) Urine Urobilinogen (Less than 2) mg/dL Ur Leukocyte Esterase (Negative) Urine RBC (0-3) /hpf Urine WBC (0-5) /hpf Hyaline Casts (0-3) /lpf Urine Mucus (Occasional) /lpf Micro UA Comment Ur Microscopic Review Urine Culture Comments Imaging Data Radiologist's impression: Abdomen/Pelvis CT 01/23/18 12:29 CONCLUSION: 1. Atherosclerosis with borderline aneurysmal dilatation of the infrarenal abdominal aorta. 2. Cholelithiasis. 3. Renal cysts. 4. Hepatic steatosis. 5. Nonobstructing right renal calculus. Chest X-Ray 01/23/18 12:29 CONCLUSION: 1. No acute cardiopulmonary disease. Head CT 01/23/18 15:56 CONCLUSION: 1. Negative CT Head non contrast. . Discharge Plan Discharge Disposition Patient Disposition: 30 Still Patient Discharge Condition Condition: Stable Discharge Details Diagnosis: Syncope, Hypomagnesemia, Weakness Physicians Team ED Provider: Leslie Castro ED Midlevel Provider: Kamille Díaz Primary Care Provider: Hayes Haynes Attending Provider: Rahul Hill Status ED Status: Admitted Observation Patient
[2018-01-23 13:02] LABS: Baso % (Auto) 0.5 % (0.0-2.0); Eos # (Auto) 0.1 th/mm3 (0.0-0.4); Eos % (Auto) 1.2 % (0.0-4.0); Hematocrit 36.3 % (39.0-51.0); Hemoglobin 12.2 gm/dL (13.0-17.0); Lymph # (Auto) 1.8 th/mm3 (1.0-4.8); Lymph % (Auto) 20.6 % (9.0-44.0); Mean Corpuscular HGB Conc 33.7 % (32.0-36.0); Mean Corpuscular Hemoglobin 33.2 pg (27.0-34.0); Mean Corpuscular Volume 98.5 fL (80.0-100.0); Mono # (Auto) 0.5 th/mm3 (0.0-0.9); Mono % (Auto) 5.9 % (0.0-8.0); Neut # (Auto) 6.1 th/mm3 (1.8-7.7); Neut % (Auto) 71.8 % (16.0-70.0); Platelet Count 300 th/mm3 (150-450); Red Blood Count 3.68 mil/mm3 (4.50-5.90); Red Cell Distribution Width 14.4 % (11.6-17.2); White Blood Count 8.5 th/mm3 (4.0-11.0)
[2018-01-23 13:13] LABS: INR 1.2 Ratio; Prothrombin Time 11.9 sec (9.8-11.6)
[2018-01-23 13:15] LABS: Bilirubin,Urine Negative (Negative); Clarity,Urine Hazy (Clear); Color,Urine Yellow (Yellw/Straw); Glucose,Urine (UA) 50 mg/dL (Negative); Hyaline Casts,Urine 1 /lpf (0-3); Leukocyte Esterase,Urine Negative (Negative); Mucus,Urine Few /lpf (Occasional); Nitrite,Urine Negative (Negative)
[2018-01-23 13:20] LABS: Albumin 3.3 g/dL (3.4-5.0); Anion Gap 11 meq/L (5-15); Aspartate Aminotransferase 28 U/L (15-37); Blood Urea Nitrogen 18 mg/dL (7-18); Calcium 8.9 mg/dL (8.5-10.1); Carbon Dioxide 20.8 meq/L (21.0-32.0); Chloride 108 meq/L (98-107); Glomerular Filtration Rate 63 mL/min (>89); Glucose,Random 178 mg/dL (74-106); Lipase 53 U/L (73-393); Magnesium 1.4 mg/dL (1.5-2.5); Potassium 4.1 meq/L (3.5-5.1); Sodium 140 meq/L (136-145)
[2018-01-23 13:21] LABS: Alanine Aminotransferase 26 U/L (12-78)
[2018-01-23 13:24] LABS: Alkaline Phosphatase 46 U/L (45-117); Total Protein 6.9 g/dL (6.4-8.2)
--- NOTE | 2018-01-23 13:26 | XR ---
EXAM DATE: 01/23/2018 12:29 PM EDT AGE/SEX: 67 years / Male INDICATIONS: Shortness of breath. CLINICAL DATA: This is the patient's initial encounter. Patient reports that signs and symptoms have been present for 1 day and indicates a pain score of 0/10. MEDICAL/SURGICAL HISTORY: None. None. COMPARISON: [facility], CT LUNG SCREENING, 07/05/2017. . FINDINGS: A single AP view of the chest demonstrates the lungs to be symmetrically aerated without evidence of mass, infiltrate or effusion. The cardiomediastinal contours are unremarkable. Osseous structures a re intact. CONCLUSION: 1. No acute cardiopulmonary disease. Electronically signed by: Amanuel Michele MD 01/23/2018 1:25 PM EDT
[2018-01-23] MEDS ORDERED: Mag Sulf 1 gm/100 ml Premix 100 ML IV.SIG ONE (13:38)
--- NOTE | 2018-01-23 14:51 | CT ---
EXAM DATE: 01/23/2018 1:36 PM EDT AGE/SEX: 67 years / Male INDICATIONS: General weakness. Fell today. Lower abdominal pain. CLINICAL DATA: This is the patient's initial encounter. Patient reports that signs and symptoms have been present for 1 day and indicates a pain score of 2/10. MEDICAL/SURGICAL HISTORY: Diabetes. Hypertension. None. ORAL CONTRAST: No oral contrast ingested. RADIATION DOSE: 14.37 CTDI (mGy) COMPARISON: No prior exams available for comparison. TECHNIQUE: Multiple contiguous axial images were obtained through the abdomen and pelvis following b olus infusion of 90 ml Omnipaque 350 (iohexol) nonionic water-soluble contrast as a single exam dos e. No oral contrast ingested. Using automated exposure control and adjustment of the mA and/or kV ac cording to patient size, radiation dose was kept as low as reasonably achievable to obtain optimal di agnostic quality images. DICOM format image data is available electronically for review and comparis on. FINDINGS: No pleural or pericardial effusions. There is hepatic steatosis. Cholelithiasis is noted. The spleen, pancreas, adrenals are unremarkable. There are bilateral renal cysts the largest on the left at the midpole measuring 6.5 cm. The largest on the right at the upper pole measuring 2.1 cm. Nonobstructing calculus midpole right kidney measuring 4.7 mm on image 38. There is atherosclerotic calcification o f the aorta and iliac vessels identified with focal borderline aneurysmal dilatation of the infrarena l abdominal aorta measuring 2.7 x 2.9 cm in transverse and AP dimension on axial image 55. Prostate, small bowel, large bowel, appendix are unremarkable. Small fat-containing right inguinal hernia. The osseous structures are intact. CONCLUSION: 1. Atherosclerosis with borderline aneurysmal dilatation of the infrarenal abdominal aorta. 2. Cholelithiasis. 3. Renal cysts. 4. Hepatic steatosis. 5. Nonobstructing right renal calculus. Electronically signed by: Cole Hutton MD 01/23/2018 2:50 PM EDT
--- NOTE | 2018-01-23 17:49 | CT ---
EXAM DATE: 01/23/2018 4:00 PM EDT AGE/SEX: 67 years / Male INDICATIONS: Trauma, fall. Weakness. CLINICAL DATA: This is the patient's initial encounter. Patient reports that signs and symptoms have been present for 1 day and indicates a pain score of 0/10. MEDICAL/SURGICAL HISTORY: Diabetes. Hypertension. None. RADIATION DOSE: 35.78 CTDI (mGy) [place] [facility] [place]. . TECHNIQUE: CT of the head without contrast. Using automated exposure control and adjustment of the mA and/or kV according to patient size, radiation dose was kept as low as reasonably achievable to ob tain optimal diagnostic quality images. DICOM format image data is available electronically for revi ew and comparison. FINDINGS: No fractures. No intracranial hemorrhage, mass or signs of acute infarct. Mild volume loss. CONCLUSION: 1. Negative CT Head non contrast. . Electronically signed by: Cole Hutton MD 01/23/2018 5:48 PM EDT
--- NOTE | 2018-01-23 19:31 | P.HP ---
History of Present Illness Service: [facility] Adult med Primary Care Physician: Hayes Haynes Chief Complaint: Recurrent falls History of Present Illness: This is a 67-year-old male patient with a past medical history of rheumatoid arthritis, diabetes mellitus on oral medications and insulin, hypertension, hyperlipidemia, anxiety/depression, bipolar disorder, chronic kidney disease stage II, degenerative disc disease, long-term use of narcotics, mitral regurgitation, Dick, squamous cell carcinoma, B12 deficiency, vitamin D deficiency and tobacco dependency who presents to the ER for recurrent falls and questionable syncope. Reportedly earlier today he fell at approximately 3 AM this morning and could not get up. Additionally it was reported that he was found by his home health nurse who called 911 was separately brought to the emergency department; however patient tells me that he was actually able to get up and that he was not on the floor when home health nurse arrived. In either case, on EMS arrival patient was tachycardic with a heart rate of 106-110, his systolic blood pressure was 100. Patient was recently discharged from rehab on Monday after a similar admission to this hospital in late December. He had a syncope workup during that visit which was essentially unremarkable. It is noted that he continues to take morphine at home and that was held while he was here. he currently lives alone. Patient takes morphine 30 mg in the morning and 15 at night as well as doxepin for sleep. He has no other physical complaints at this time, he denies any shortness of breath, chest pain, fevers, chills, nausea today, he states that he did feel nauseated yesterday, and he has not had a bowel movement in 13 days; however, his CT scan abdomen pelvis and lab work do not support significant constipation or obstruction. Upon arrival to the emergency department patient's blood pressure was 95/55. He has been given IV fluids. He seems to be much more alert and oriented on my exam than he was initially per review of ER notes. Patient reports that when he has these falls he is almost always going from a seated to standing position He reports that he feels somewhat lightheaded before passing out or falling to the floor. Says he is actually able to try to protect himself during some falls and others he seems to black out. He denies any chest pain or heart palpitations. CT the head reviewed and reveals: No acute abnormality, Cortical atrophy and Possible left frontal scalp injury. PMH: rheumatoid arthritis, diabetes mellitus on oral medications and insulin, hypertension, hyperlipidemia, anxiety/depression, bipolar disorder, chronic kidney disease stage II, degenerative disc disease, long-term use of narcotics, mitral regurgitation, Dick, squamous cell carcinoma, B12 deficiency, vitamin D deficiency and tobacco dependency PSxH: Complete colonoscopy, EGD with biopsy, paravertebral nerve block facet joint, Rhizotomy Social history Denies current EtOH use but did drink heavily from ages [age] Current daily tobacco use 1 to 1-1/2 pack a day which he has done for over 35 years 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 He is but his of 28 years actually lives out in [place] somewhat estranged peer Denies illicit drug use FMH: He has a brother who is an alcoholic as well as dependent on illicit drugs Father with history of impulsive behavior and some mood disorder peer - Diagnosis (1) Falls frequently (2) Chronic pain (3) DM2 (diabetes mellitus, type 2) (4) Syncope (5) Hypomagnesemia (6) Weakness Review of Systems Constitutional: Reports body ache(s), Reports fatigue, Reports weakness Eyes: Denies blind spots, Denies blurry vision, Denies bulging eyes, Denies change in vision, Denies double vision, Denies discharge, Denies dry eyes, Denies floaters, Denies irritation, Denies itchy eyes, Denies loss of vision, Denies pain, Denies requires corrective lenses, Denies sensitivity to light, Denies other Ears, Nose, Mouth, and Throat: Denies abnormal hearing, Denies bleeding gums, Denies bad breath, Denies change in voice, Denies dental pain, Denies difficulty swallowing, Denies dizziness, Denies dry mouth, Denies ear discharge , Denies ear pain, Denies facial pain, Denies headache(s), Denies hearing loss, Denies hoarseness, Denies lip swelling, Denies nosebleed, Denies mouth lesions, Denies mouth pain, Denies nasal congestion, Denies nasal discharge, Denies nasal obstruction, Denies nasal trauma, Denies neck lump, Denies neck pain, Denies nose pain, Denies pain with swallowing, Denies poor balance, Denies post nasal drip, Denies ringing in the ears, Denies sinus pain, Denies sinus pressure , Denies sore throat, Denies throat swelling, Denies tongue swelling, Denies other Cardiovascular: Denies chest pain, Denies chest pain at rest, Denies chest pain with activity, Denies excessive sweating, Denies fainting, Denies fast heart rate, Denies foot swelling, Denies generalized swelling, Denies irregular heart rhythm, Denies leg pain with activity, Denies leg sores, Denies leg swelling, Denies lightheadedness, Denies radiating jaw, neck or arm pain, Denies rapid, pounding, or irregular heartbeat, Denies shortness of breath, Denies shortness of breath with activity, Denies shortness of breath when lying down, Denies shortness of breath causing sudden awakening, Denies slow heart rate, Denies other Respiratory: Denies change in phlegm color, Denies chest congestion, Denies cough, Denies coughing up blood, Denies excessive phlegm production, Denies pain on inspiration, Denies pain with cough, Denies shortness of breath, Denies shortness of breath with activity, Denies snoring, Denies stridor, Denies wheezing, Denies other Gastrointestinal: Reports change in bowel habits, Reports constipation Musculoskeletal: Reports abnormal walking, Reports muscle weakness Neurologic: Reports abnormal walking, Reports dizziness, Reports frequent falls PMFSH - History History Provided By: Patient - Medical History Medical History: Medical History (Last Reviewed 01/23/18 @ 12:44 by ABBI Parisi) Anxiety Bipolar 1 disorder Diabetes HTN (hypertension) Hyperlipemia Medical history unknown - Tobacco History Second Hand Smoke Exposure: No Tobacco Use In Past 30 Days: Yes Smoking Status: Current every day smoker Tobacco Type: Cigarettes - Alcohol History How Often Do You Have a Drink Containing Alcohol: Never - Substance Use History Substance History: No History of Abuse - Travel History Recent Travel in the [place] Within the Last 8 Weeks: No Recent Travel Out of the Country Within the Last 8 Weeks: No - Immunization History Tetanus Immunization: <5 Years Medications and Allergies Active Medications: Active Medications Sodium Chloride (Ns Inj) 1,000 mls @ 0 mls/hr IV.SIG .Q0M BRYAN Last Infusion: 01/23/18 13:57 Dose: Infused Sodium Chloride (Ns Inj) 1,000 mls @ 0 mls/hr IV.SIG BOLUS BRYAN Last Infusion: 01/23/18 13:57 Dose: Infused Allergies Allergy/AdvReac Type Severity Reaction Status Date / Time aspirin Allergy Severe RASH & Verified 01/23/18 14:45 DECREASED BP ibuprofen Allergy Severe DECREASED Verified 01/23/18 14:45 BLOOD PRESSURE penicillin G Allergy Severe PASSED OUT Verified 01/23/18 14:45 fish oil Allergy Unknown Abdominal Verified 01/23/18 14:45 Pain oxycodone AdvReac Unknown NAUSEA/VOMI Verified 01/23/18 14:45 TING Home Medications Medication Instructions Recorded Confirmed Type alendronate 70 mg PO QWEEK 01/06/18 01/23/18 History doxepin 10 mg PO HS 01/06/18 01/23/18 History fenofibrate nanocrystallized 145 mg PO DAILY 01/06/18 01/23/18 History lamotrigine 100 mg PO TID 01/06/18 01/23/18 History methotrexate sodium 15 mg PO WEEKLY 01/06/18 01/23/18 History pantoprazole 40 mg PO DAILY 01/06/18 01/23/18 History quetiapine 150 mg PO HS 01/06/18 01/23/18 History rosuvastatin 20 mg PO DAILY 01/06/18 01/23/18 History tofacitinib [Xeljanz] 5 mg PO Q12H 01/06/18 01/23/18 History bupropion HCl (smoking deter) 150 mg PO BID 01/23/18 01/23/18 History gabapentin 600 mg PO TID 01/23/18 01/23/18 History glimepiride 2 mg PO QAM 01/23/18 01/23/18 History insulin NPH and regular human 20 unit SUBCUT QPM 01/23/18 01/23/18 History [Novolin 70/30 U-100 Insulin] insulin NPH and regular human 40 unit SUBCUT QAM 01/23/18 01/23/18 History [Novolin 70/30 U-100 Insulin] lisinopril 20 mg PO DAILY 01/23/18 01/23/18 History metformin 1,000 mg PO BID 01/23/18 01/23/18 History metoprolol tartrate 12.5 mg PO BID 01/23/18 01/23/18 History morphine 15 mg PO Q12H PRN 01/23/18 01/23/18 History morphine 30 mg PO DAILY 01/23/18 01/23/18 History Exam Vital signs: Vital Signs 01/23/18 12:19 01/23/18 15:24 Temperature 98.3 F Pulse Rate 108 H 93 H Respiratory Rate 20 23 Blood Pressure 110/61 142/73 H Pulse Oximetry 94 L 96 Intake & Output 01/23/18 01/23/18 01/24/18 06:59 18:59 06:59 Intake Total 2099 Balance 2099 Weight 89.358 kg Intake: IV 2099 Magnesium Sulfate 1 gm/D5W 100 100 / 100 ml Premix 100 ML @ 100 mls/hr IV.SIG ONCE ONE Rx#:[id number] NS Inj 1,000 ML @ Wide Open IV. 1999 SIG BOLUS BRYAN Rx#:[id number] Narrative: GENERAL: Sitting on exam bed, no acute distress, he is alert and oriented to person place and month as well as year. He is not oriented to today's date SKIN: Warm and dry. Some purpuric lesions on his forearm. Erythema along left forehead. Postsurgical scarring right upper back and shoulder area. HEAD: Atraumatic. Normocephalic. EYES: Pupils equal and round. No scleral icterus. No injection or drainage. ENT: No nasal bleeding or discharge. Mucous membranes pink and moist. NECK: Trachea midline. No JVD. CARDIOVASCULAR: Regular rate and rhythm. No significant murmur noted. RESPIRATORY: No accessory muscle use. Clear to auscultation. Breath sounds equal bilaterally. GASTROINTESTINAL: Abdomen soft, non-tender, nondistended. Hepatic and splenic margins not palpable. MUSCULOSKELETAL: Extremities without clubbing, cyanosis, or edema. No obvious deformities. Moves all extremities well. NEUROLOGICAL: Awake and alert. No obvious cranial nerve deficits. Motor grossly within normal limits. Five out of 5 muscle strength in the arms and legs. Normal speech with slight slurring at times. PSYCHIATRIC: Appropriate mood and affect. Results - Labs CBC & Chem 7: 01/23/18 12:35 01/23/18 12:27 Labs: Laboratory Results - last 24 hr 01/23/18 01/23/18 01/23/18 12:27 12:27 12:35 WBC 8.5 RBC 3.68 L Hgb 12.2 L Hct 36.3 L MCV 98.5 MCH 33.2 MCHC 33.7 RDW 14.4 Plt Count 300 MPV 9.0 Neut % (Auto) 71.8 H Lymph % (Auto) 20.6 [place] % (Auto) 5.9 Eos % (Auto) 1.2 Baso % (Auto) 0.5 Neut # (Auto) 6.1 Lymph # (Auto) 1.8 [place] # (Auto) 0.5 Eos # (Auto) 0.1 Baso # (Auto) 0.0 WBC Differential . Differential Comment Auto diff final PT INR APTT Sodium 140 Potassium 4.1 Chloride 108 H Carbon Dioxide 20.8 L Anion Gap 11 BUN 18 Creatinine 1.16 Estimated GFR 63 L Random Glucose 178 H Lactic Acid Calcium 8.9 Magnesium 1.4 L Total Bilirubin 0.4 AST 28 ALT 26 Alkaline Phosphatase 46 Total Creatine Kinase 194 Total Protein 6.9 Albumin 3.3 L Lipase 53 L Urine Color Urine Clarity Urine pH Ur Specific [place] Urine Protein Urine Glucose (UA) Urine Ketones Urine Occult Blood Urine Nitrate Urine Bilirubin Urine Urobilinogen Ur Leukocyte Esterase Urine RBC Urine WBC Hyaline Casts Urine Mucus Micro UA Comment Ur Microscopic Review Urine Culture Comments 01/23/18 01/23/18 01/23/18 12:35 12:37 12:41 WBC RBC Hgb Hct MCV MCH MCHC RDW Plt Count MPV Neut % (Auto) Lymph % (Auto) [place] % (Auto) Eos % (Auto) Baso % (Auto) Neut # (Auto) Lymph # (Auto) [place] # (Auto) Eos # (Auto) Baso # (Auto) WBC Differential Differential Comment PT 11.9 H INR 1.2 APTT 25.0 Sodium Potassium Chloride Carbon Dioxide Anion Gap BUN Creatinine Estimated GFR Random Glucose Lactic Acid 2.2 H Calcium Magnesium Total Bilirubin AST ALT Alkaline Phosphatase Total Creatine Kinase Total Protein Albumin Lipase Urine Color Yellow Urine Clarity Hazy H Urine pH 5.0 Ur Specific [place] 1.020 Urine Protein Negative Urine Glucose (UA) 50 Urine Ketones Negative Urine Occult Blood Negative Urine Nitrate Negative Urine Bilirubin Negative Urine Urobilinogen Less than 2 Ur Leukocyte Esterase Negative Urine RBC 1 Urine WBC Less than 1 Hyaline Casts 1 Urine Mucus Few H Micro UA Comment Cath-culture not ind Ur Microscopic Review Not Reportable Urine Culture Comments Cath-cult not ind 01/23/18 15:21 WBC RBC Hgb Hct MCV MCH MCHC RDW Plt Count MPV Neut % (Auto) Lymph % (Auto) [place] % (Auto) Eos % (Auto) Baso % (Auto) Neut # (Auto) Lymph # (Auto) [place] # (Auto) Eos # (Auto) Baso # (Auto) WBC Differential Differential Comment PT INR APTT Sodium Potassium Chloride Carbon Dioxide Anion Gap BUN Creatinine Estimated GFR Random Glucose Lactic Acid 1.9 Calcium Magnesium Total Bilirubin AST ALT Alkaline Phosphatase Total Creatine Kinase Total Protein Albumin Lipase Urine Color Urine Clarity Urine pH Ur Specific [place] Urine Protein Urine Glucose (UA) Urine Ketones Urine Occult Blood Urine Nitrate Urine Bilirubin Urine Urobilinogen Ur Leukocyte Esterase Urine RBC Urine WBC Hyaline Casts Urine Mucus Micro UA Comment Ur Microscopic Review Urine Culture Comments - Imaging Impressions Abdomen/Pelvis CT 01/23/18 12:29 CONCLUSION: 1. Atherosclerosis with borderline aneurysmal dilatation of the infrarenal abdominal aorta. 2. Cholelithiasis. 3. Renal cysts. 4. Hepatic steatosis. 5. Nonobstructing right renal calculus. Chest X-Ray 01/23/18 12:29 CONCLUSION: 1. No acute cardiopulmonary disease. Head CT 01/23/18 15:56 CONCLUSION: 1. Negative CT Head non contrast. . Caprini VTE Risk Assessment Caprini VTE Risk Assessment: Moderate/High Risk (score >= 2) Caprini Risk Assessment Model: Point Value = 1 Point Value = 2 Point Value = 3 Point Value = 5 Age 41-60 Minor surgery BMI > 25 kg/m2 Swollen legs Varicose veins or History of unexplained or recurrent spontaneous Oral contraceptives or hormone replacement Sepsis (< 1 month) Serious lung disease, including pneumonia (< 1 month) Abnormal pulmonary function Acute myocardial infarction Congestive heart failure (< 1 month) History of inflammatory bowel disease Medical patient at bed rest Age 61-74 Arthroscopic surgery Major open surgery (> 45 min) Laparoscopic surgery (> 45 min) Malignancy Confined to bed (> 72 hours) Immobilizing plaster cast Central venous access Age >= 75 History of VTE Family history of VTE Factor V Leiden Prothrombin [id number] Lupus anticoagulant Anticardiolipin antibodies Elevated serum homocysteine Heparin-induced thrombocytopenia Other congenital or acquired thrombophilia Stroke (< 1 month) Elective arthroplasty Hip, pelvis, or leg fracture Acute spinal cord injury (< 1 month) Prophylaxis Regimen: Total Risk Factor Score Risk Level Prophylaxis Regimen 0-1 Low Early ambulation 2 Moderate Order ONE of the following: *Sequential Compression Device (SCD) *Heparin 5000 units SQ BID 3-4 Higher Order ONE of the following medications: *Heparin 5000 units SQ TID *Enoxaparin/Lovenox 40 mg SQ daily (WT < 150 kg, CrCl > 30 mL/min) *Enoxaparin/Lovenox 30 mg SQ daily (WT < 150 kg, CrCl > 10-29 mL/min) *Enoxaparin/Lovenox 30 mg SQ BID (WT < 150 kg, CrCl > 30 mL/min) AND/OR *Sequential Compression Device (SCD) 5 or more Highest Order ONE of the following medications: *Heparin 5000 units SQ TID (Preferred with Epidurals) *Enoxaparin/Lovenox 40 mg SQ daily (WT < 150 kg, CrCl > 30 mL/min) *Enoxaparin/Lovenox 30 mg SQ daily (WT < 150 kg, CrCl > 10-29 mL/min) *Enoxaparin/Lovenox 30 mg SQ BID (WT < 150 kg, CrCl > 30 mL/min) AND *Sequential Compression Device (SCD) Assessment and Plan - Assessment (1) Falls frequently Code(s): R29.6 - Repeated falls Status: Chronic Plan: Seems to have been ongoing for anywhere from 3-6 months depending on patient's story. I suspect some do to orthostatic hypotension which could be induced by chronic narcotic use. Will hold off on his narcotics presently. Have PT see the patient and do neuro checks. He seems to be improving with IV fluid. May need rehab again. (2) Chronic pain Code(s): G89.29 - Other chronic pain Status: Chronic Plan: We will provide Toradol. Hold narcotics for now. (3) DM2 (diabetes mellitus, type 2) Code(s): E11.9 - Type 2 diabetes mellitus without complications Status: Acute Plan: Provide sliding scale insulin A1c was 6.9 earlier this year. (4) Syncope Code(s): R55 - Syncope and collapse Status: Acute Plan: As noted above. Patient had recent echo and carotid ultrasound. CT brain unremarkable for acute findings. Likely orthostatic hypotension. (5) Hypomagnesemia Code(s): E83.42 - Hypomagnesemia Status: Acute (6) Weakness Code(s): R53.1 - Weakness Status: Acute Plan: As above. PT eval. - Plan Code Status: full Discussed Condition With: Patient and ER provider. (4) Syncope Qualifiers: Syncope type: unspecified Qualified Code(s): R55 - Syncope and collapse
[2018-01-23] MEDS ORDERED: Dextrose 50% in Water 50 ML Vial IV.PUSH PRN (19:34)
[2018-01-23] MEDS: Sod Chloride 0.9% Inj 1,000 ML IV.CONT SCH (19:50)
[2018-01-24] MEDS: Insulin NovoLOG Aspart Correctional Sugar Inj SQ SCH ×3 (00:07→14:14)
[2018-01-24 01:50] LABS: Amphetamine Screen,Urine Neg (Neg); Barbiturate Screen,Urine Neg (Neg); Cannabinoid Screen,Urine Neg (Neg); Cocaine Screen,Urine Neg (Neg)
[2018-01-24 01:52] LABS: Opiate Screen,Urine Pos (Neg)
[2018-01-24 06:03] VITALS: RESP 18
[2018-01-24] MEDS: Sod Chloride 0.9% Inj 1,000 ML IV.CONT SCH ×2 (06:08→15:51)
[2018-01-24 07:02] LABS: Albumin 2.8 g/dL (3.4-5.0); Anion Gap 7 meq/L (5-15); Aspartate Aminotransferase 21 U/L (15-37); Blood Urea Nitrogen 11 mg/dL (7-18); Calcium 8.5 mg/dL (8.5-10.1); Carbon Dioxide 23.5 meq/L (21.0-32.0); Chloride 113 meq/L (98-107); Glomerular Filtration Rate 87 mL/min (>89); Glucose,Random 145 mg/dL (74-106); Magnesium 1.8 mg/dL (1.5-2.5); Sodium 143 meq/L (136-145)
[2018-01-24 07:03] LABS: Alanine Aminotransferase 21 U/L (12-78)
[2018-01-24 07:05] LABS: Alkaline Phosphatase 42 U/L (45-117)
[2018-01-24 09:10] VITALS: TEMP 98.3
--- NOTE | 2018-01-24 09:29 | P.PNIM ---
Subjective Interval history: Pt is very shaky and anxious this morning He states that he wants to be discharged today, either to rehab or home Pt was seen by PT this morning and pt would be appropriate for rehab placement. He tells me that after he returned home from rehab that he flushed the Ultram down the toilet and went back to using his Morphine 30mg in AM and 15mg in PM He states that when he was at rehab that he was using the Ultram and that it helped somewhat but that the Morphine works better. Physical Exam Vital signs: Vital Signs 01/23/18 12:19 01/23/18 15:24 01/23/18 19:50 Temperature 98.3 F Pulse Rate 108 H 93 H 101 H Respiratory Rate 20 23 14 Blood Pressure 110/61 142/73 H 113/74 Pulse Oximetry 94 L 96 97 01/23/18 20:00 01/23/18 23:47 01/24/18 06:01 Temperature 97.7 F 97.8 F 97.8 F Pulse Rate 108 H 89 82 Respiratory Rate 18 17 18 Blood Pressure 120/72 116/71 119/71 Pulse Oximetry 96 93 L 94 L Intake & Output 01/23/18 01/24/18 01/24/18 18:59 06:59 18:59 Intake Total 2099 1000 / 1000 Balance 2099 / 2099 1000 / 1000 Weight 89.358 kg 89.358 kg Intake: IV 2099 / 2099 1000 / 1000 NS Inj 1,000 ML @ 100 mls/hr IV 1000 / 1000 .CONT .Q10H [facility] Rx#:[id number] Magnesium Sulfate 1 gm/D5W 100 100 / 100 ml Premix 100 ML @ 100 mls/hr IV.SIG ONCE ONE Rx#:[id number] NS Inj 1,000 ML @ Wide Open IV. 1999 SIG [facility] Rx#:[id number] Other: # Voids 2 Weight On Admission 89.358 kg Narrative: GENERAL: Sitting on exam bed, no acute distress, he is alert and oriented to person place and month as well as year. He is not oriented to today's date SKIN: Warm and dry. Some purpuric lesions on his forearm. Erythema along left forehead. Postsurgical scarring right upper back and shoulder area. CARDIO: Regular rate and rhythm. RESP:Clear to auscultation bilaterally. ABD: +BS, soft, non-tender, nondistended. EXT: No edema Results - Labs CBC & Chem 7: 01/23/18 12:35 01/24/18 05:35 Laboratory Results - last 24 hr 01/23/18 01/23/18 01/23/18 12:27 12:27 12:27 WBC RBC Hgb Hct MCV MCH MCHC RDW Plt Count MPV Neut % (Auto) Lymph % (Auto) [place] % (Auto) Eos % (Auto) Baso % (Auto) Neut # (Auto) Lymph # (Auto) [place] # (Auto) Eos # (Auto) Baso # (Auto) WBC Differential Differential Comment PT INR APTT Sodium 140 Potassium 4.1 Chloride 108 H Carbon Dioxide 20.8 L Anion Gap 11 BUN 18 Creatinine 1.16 Estimated GFR 63 L POC Glucose Random Glucose 178 H Lactic Acid Calcium 8.9 Magnesium 1.4 L Total Bilirubin 0.4 AST 28 ALT 26 Alkaline Phosphatase 46 Total Creatine Kinase 194 Total Protein 6.9 Albumin 3.3 L Lipase 53 L Urine Color Urine Clarity Urine pH Ur Specific [place] Urine Protein Urine Glucose (UA) Urine Ketones Urine Occult Blood Urine Nitrate Urine Bilirubin Urine Urobilinogen Ur Leukocyte Esterase Urine RBC Urine WBC Hyaline Casts Urine Mucus Micro UA Comment Ur Microscopic Review Urine Culture Comments Urine Opiates Screen Ur Barbiturates Screen Ur Amphetamines Screen U Benzodiazepines Scrn Urine Cocaine Screen U Cannabinoids Screen Serum Alcohol Less than 3 01/23/18 01/23/18 01/23/18 12:35 12:35 12:37 WBC 8.5 RBC 3.68 L Hgb 12.2 L Hct 36.3 L MCV 98.5 MCH 33.2 MCHC 33.7 RDW 14.4 Plt Count 300 MPV 9.0 Neut % (Auto) 71.8 H Lymph % (Auto) 20.6 [place] % (Auto) 5.9 Eos % (Auto) 1.2 Baso % (Auto) 0.5 Neut # (Auto) 6.1 Lymph # (Auto) 1.8 [place] # (Auto) 0.5 Eos # (Auto) 0.1 Baso # (Auto) 0.0 WBC Differential . Differential Comment Auto diff final PT 11.9 H INR 1.2 APTT 25.0 Sodium Potassium Chloride Carbon Dioxide Anion Gap BUN Creatinine Estimated GFR POC Glucose Random Glucose Lactic Acid 2.2 H Calcium Magnesium Total Bilirubin AST ALT Alkaline Phosphatase Total Creatine Kinase Total Protein Albumin Lipase Urine Color Urine Clarity Urine pH Ur Specific [place] Urine Protein Urine Glucose (UA) Urine Ketones Urine Occult Blood Urine Nitrate Urine Bilirubin Urine Urobilinogen Ur Leukocyte Esterase Urine RBC Urine WBC Hyaline Casts Urine Mucus Micro UA Comment Ur Microscopic Review Urine Culture Comments Urine Opiates Screen Ur Barbiturates Screen Ur Amphetamines Screen U Benzodiazepines Scrn Urine Cocaine Screen U Cannabinoids Screen Serum Alcohol 01/23/18 01/23/18 01/23/18 12:41 12:41 15:21 WBC RBC Hgb Hct MCV MCH MCHC RDW Plt Count MPV Neut % (Auto) Lymph % (Auto) [place] % (Auto) Eos % (Auto) Baso % (Auto) Neut # (Auto) Lymph # (Auto) [place] # (Auto) Eos # (Auto) Baso # (Auto) WBC Differential Differential Comment PT INR APTT Sodium Potassium Chloride Carbon Dioxide Anion Gap BUN Creatinine Estimated GFR POC Glucose Random Glucose Lactic Acid 1.9 Calcium Magnesium Total Bilirubin AST ALT Alkaline Phosphatase Total Creatine Kinase Total Protein Albumin Lipase Urine Color Yellow Urine Clarity Hazy H Urine pH 5.0 Ur Specific [place] 1.020 Urine Protein Negative Urine Glucose (UA) 50 Urine Ketones Negative Urine Occult Blood Negative Urine Nitrate Negative Urine Bilirubin Negative Urine Urobilinogen Less than 2 Ur Leukocyte Esterase Negative Urine RBC 1 Urine WBC Less than 1 Hyaline Casts 1 Urine Mucus Few H Micro UA Comment Cath-culture not ind Ur Microscopic Review Not Reportable Urine Culture Comments Cath-cult not ind Urine Opiates Screen Pos H Ur Barbiturates Screen Neg Ur Amphetamines Screen Neg U Benzodiazepines Scrn Neg Urine Cocaine Screen Neg U Cannabinoids Screen Neg Serum Alcohol 01/23/18 01/24/18 01/24/18 21:06 05:35 09:02 WBC RBC Hgb Hct MCV MCH MCHC RDW Plt Count MPV Neut % (Auto) Lymph % (Auto) [place] % (Auto) Eos % (Auto) Baso % (Auto) Neut # (Auto) Lymph # (Auto) [place] # (Auto) Eos # (Auto) Baso # (Auto) WBC Differential Differential Comment PT INR APTT Sodium 143 Potassium 4.0 Chloride 113 H Carbon Dioxide 23.5 Anion Gap 7 BUN 11 Creatinine 0.87 Estimated GFR 87 L POC Glucose 148 H 188 H Random Glucose 145 H Lactic Acid Calcium 8.5 Magnesium 1.8 Total Bilirubin 0.5 AST 21 ALT 21 Alkaline Phosphatase 42 L Total Creatine Kinase Total Protein 6.0 L D Albumin 2.8 L Lipase Urine Color Urine Clarity Urine pH Ur Specific [place] Urine Protein Urine Glucose (UA) Urine Ketones Urine Occult Blood Urine Nitrate Urine Bilirubin Urine Urobilinogen Ur Leukocyte Esterase Urine RBC Urine WBC Hyaline Casts Urine Mucus Micro UA Comment Ur Microscopic Review Urine Culture Comments Urine Opiates Screen Ur Barbiturates Screen Ur Amphetamines Screen U Benzodiazepines Scrn Urine Cocaine Screen U Cannabinoids Screen Serum Alcohol - Imaging Impressions Abdomen/Pelvis CT 01/23/18 12:29 CONCLUSION: 1. Atherosclerosis with borderline aneurysmal dilatation of the infrarenal abdominal aorta. 2. Cholelithiasis. 3. Renal cysts. 4. Hepatic steatosis. 5. Nonobstructing right renal calculus. Chest X-Ray 01/23/18 12:29 CONCLUSION: 1. No acute cardiopulmonary disease. Head CT 01/23/18 15:56 CONCLUSION: 1. Negative CT Head non contrast. . Assessment and Plan - Assessment (1) Falls frequently Code(s): R29.6 - Repeated falls Status: Chronic Plan: Falls frequently - Pt has been having frequent issues with falls at home and was hospitalized last month for the same issues. He went to [facility] after that hospitalization and was discharged to home 5 days ago. - The pts chronic Morphine was stopped during his last admission as well as when he was at rehab and the pt was receiving Ultram PRN for pain. - When he went back home he reportedly flushed his Ultram and went back to using his Morphine. - I suspect his falls may have something do to orthostatic hypotension which could be induced by chronic narcotic use. - Will hold off on his narcotics presently. - PT has evaluated the pt this morning and felt the pt would benefit from SNF placement. -Orthostatic vitals this morning: supine 119/71, pulse 82; sitting up 122/82, pulse 83' standing 103/66, pulse 84 - He seems to be improving with IV fluid. Pt insisting on discharge today. - We will make arrangements for discharge to SNF this afternoon. - We will have the pt followup with his PCP, Dr. Haynes, 1 week after discharge from SNF. - Pt will continue on his Metoprolol 12.5mg po BID and Lisinopril 20mg po daily but with hold parameters on the lisinopril - We will not resume his Morphine and continue Ultram PRN while at rehab Chronic pain - Ultram PRN - Hold Morphine for now. - Cont. gabapentin 300mg TID DM2 (diabetes mellitus, type 2) - Provide sliding scale insulin - A1c was 6.9 earlier this year. Syncope - As noted above. - Patient had recent echo and carotid ultrasound. - CT brain unremarkable for acute findings. Likely orthostatic hypotension. The exam, history, and the medical decision-making described in the above note were completed with the assistance of the mid-level provider. I reviewed and agree with the findings presented. I attest that I had a [id number] encounter with the patient on the same day, and personally performed and documented my assessment and findings in the medical record. medication side effects. noncompliance. pt used medications after instructed to stop and recurrence of sx's. dc to snf. (2) Abrasion, multiple sites Code(s): T07.XXXA - Unspecified multiple injuries, initial encounter Status: Acute (3) Weakness Code(s): R53.1 - Weakness Status: Acute (4) Chronic pain Code(s): G89.29 - Other chronic pain Status: Chronic (5) DM2 (diabetes mellitus, type 2) Code(s): E11.9 - Type 2 diabetes mellitus without complications Status: Acute
[2018-01-24 13:16] VITALS: BP 156/91; PULSE 92; O2SAT 96
--- NOTE | 2018-01-24 21:11 | ECG ---
Date Performed: 01/23/2018 Time Performed: 12:19:23 PTAGE: 67 years EKG: SINUS TACHYCARDIA BORDERLINE LEFT AXIS DEVIATION LOW QRS VOLTAGE IN PRECORDIAL LEADS When c ompared to previous tracing, sinus rate has increased. ABNORMAL RHYTHM ECG PREVIOUS TRACING : 01/05/2018 21.54.46 DOCTOR: Magdi Lewis Interpretating Date/Time 01/24/2018 21:10:34
== END 2018-01-24 16:21 ==
LOC: NEPC 12:10 → NEDA 12:10 → NEPGCP 20:03
PROVIDERS: ADMIT Hospitalist; ATTEND Hospitalist

== ENCOUNTER 2018-03-06 16:42 | Inpatient (IN) ==
[2018-03-06] MEDS ORDERED: Morphine Inj 4 MG/ML Vial IV.PUSH ONE (16:58)
--- NOTE | 2018-03-06 17:02 | ED ---
HPI General Chief complaint: Fall Stated complaint: Fall Time Seen by Provider: 03/06/18 16:57 Source: patient Mode of arrival: EMS Limitations: no limitations History of Present Illness HPI narrative: 68 y/o male with a history of HTN, DM, HLD, chronic back pain on morphine and bipolar was brought in via evac for multiple falls today. Patient lives alone and states he has fallen multiple times today and has been weak for at least a month. He states when he tries to get up and his legs feel weak and he just falls. He denies any dizziness prior to the fall. He states today he fell backwards and to the left and hit his head but denies any LOC. He complains of mid to lower back pain, Left chest pain and left elbow pain, aching , constant, 10/10, no radiating pain, but with associated vomiting, worse with touch and movement to left elbow. Chest pain is worse with deep breaths. He denies any recent illness, no cough, fever or chills. Upon arrival to the ER patient was hypotensive 74/40 and given 500ml bolus in route. Patient states he had a tetanus shot 8 weeks ago at his pcp office. Related Data Home Medications Medication Instructions Recorded Confirmed alendronate 70 mg PO QWEEK 01/06/18 03/06/18 doxepin 10 mg PO HS 01/06/18 03/06/18 fenofibrate nanocrystallized 145 mg PO DAILY 01/06/18 03/06/18 lamotrigine 100 mg PO TID 01/06/18 03/06/18 methotrexate sodium 15 mg PO WEEKLY 01/06/18 03/06/18 pantoprazole 40 mg PO DAILY 01/06/18 03/06/18 quetiapine 150 mg PO HS 01/06/18 03/06/18 rosuvastatin 20 mg PO DAILY 01/06/18 03/06/18 tofacitinib [Xeljanz] 5 mg PO Q12H 01/06/18 03/06/18 glimepiride 2 mg PO QAM 01/23/18 03/06/18 metformin 1,000 mg PO BID 01/23/18 03/06/18 metoprolol tartrate 12.5 mg PO BID 01/23/18 03/06/18 Previous Rx's Medication Instructions Recorded doxepin 150 mg PO HS PRN #14 tab 01/07/18 gabapentin [Neurontin] 300 mg PO TID cap 01/07/18 insulin aspart U-100 [Novolog 0 unit SUBCUT ACHS ml 01/07/18 U-100 Insulin aspart] lisinopril 20 mg PO DAILY #0 tab 01/24/18 Allergies Allergy/AdvReac Type Severity Reaction Status Date / Time aspirin Allergy Severe RASH & Verified 01/23/18 14:45 DECREASED BP ibuprofen Allergy Severe DECREASED Verified 01/23/18 14:45 BLOOD PRESSURE penicillin G Allergy Severe PASSED OUT Verified 01/23/18 14:45 fish oil Allergy Unknown Abdominal Verified 01/23/18 14:45 Pain oxycodone AdvReac Unknown NAUSEA/VOMI Verified 01/23/18 14:45 TING Review of Systems ROS: all other systems reviewed are negative [facility] Medical History Medical History Anxiety (Acute) Bipolar 1 disorder (Acute) Diabetes (Acute) HTN (hypertension) (Acute) Hyperlipemia (Acute) Social History Social History Substance History: Past History Second Hand Smoke Exposure: Yes Smoking Status: Current every day smoker Tobacco Type: Cigarettes How Often Do You Have a Drink Containing Alcohol: Never Recent Travel in [facility] within the Last 8 Weeks: No Recent Out of Country Travel within the Last 8 Weeks: No Immunization History Tetanus Immunization: Unsure Exam Narrative Exam Narrative: GENERAL: well nourished patient in distress due to pain SKIN: Warm and dry. Skin tears on left elbow and forearm, and right forearm HEAD: Atraumatic. Normocephalic. EYES: Pupils equal and round. No scleral icterus. No injection or drainage. ENT: No nasal bleeding or discharge. Mucous membranes pink and moist. NECK: Trachea midline. No JVD. No cervical neck pain CARDIOVASCULAR: Regular rate and rhythm. RESPIRATORY: No accessory muscle use. Diminished breath sounds, pain with deep breath. No wheezing or crackles GASTROINTESTINAL: Abdomen soft, non-tender, nondistended. Hepatic and splenic margins not palpable. MUSCULOSKELETAL: Extremities without clubbing, cyanosis, or edema. No obvious deformities. Left elbow decreased ROM, muscle spasm with movement NEUROLOGICAL: Awake and alert. No obvious cranial nerve deficits. Motor grossly within normal limits. 4 out of 5 muscle strength in the arms and legs. Normal speech. Course Initial Documented Vital Signs Temperature 98.5 F 03/06/18 16:51 Pulse Rate 92 H 03/06/18 16:51 Respiratory Rate 20 03/06/18 16:51 Blood Pressure 92/61 L 03/06/18 16:51 Pulse Oximetry 93 L 03/06/18 16:51 Last Documented Vital Signs Temperature 98.5 F 03/06/18 16:51 Pulse Rate 97 H 03/06/18 16:58 Respiratory Rate 20 03/06/18 16:51 Blood Pressure 92/61 L 03/06/18 16:51 Pulse Oximetry 93 L 03/06/18 16:51 Medical Decision Making JUAN Attestation JUAN supervised visit: Yes Attestation: I, Dr. Fontenot, have reviewed the advance practice practitioner's documentation and am in agreement, met with the patient face to face, made the diagnosis, and the medical decision making was done by me. See her note for further details. This is a 68-year-old male who is home for evaluation of left chest wall pain and left upper quadrant abdominal pain after a fall that occurred this morning. The patient was admitted last month for frequent falls, and he reports having several falls since being discharged. He reports a mechanical fall this morning and it took him about 2 and half hours before he was able to call for help. On exam he is awake and alert, cervical collar placed by EMS, he has abrasions to his left upper extremity with edema to the left elbow and tenderness. States that his last tetanus was 8 weeks ago, updated by his primary care physician. His O2 saturation is 93% on room air. He states he smokes 2 packs of cigarettes daily. He has significant tenderness to the left chest wall and left upper quadrant of his abdomen. There are no paradoxical chest wall movement or rib step-offs or crepitus. Labs are remarkable for a BUN of 43, creatinine 3.27, potassium 5.3 which is significantly worse than his baseline. Patient has very dry mucous membranes on exam. Left elbow x-ray shows no acute bony injuries. Chest x-ray showed possible left lower rib fracture with possible pneumothorax. CT chest shows no acute traumatic injuries , no rib fractures or pneumothorax. CT abdomen pelvis shows no acute intra- abdominal traumatic injuries. The patient has a large left renal cyst and a nonobstructing renal stone. CT of the cervical spine shows disc space narrowing at C5-C6 C6 and T1, No evidence of fracture. CT lumbar spine shows no acute fractures. Patient was given 2 L normal saline IV and will be started on a drip at 100 cc/h. Goel catheter placed with 700 cc of clear yellow urine output. Patient was also given 4 mg of morphine. He was made aware of all findings will be admitted for further treatment and evaluation. MDM Narrative Medical decision making narrative: 68 y/o male with a history of HTN, DM, HLD, and bipolar was brought in via evac for multiple falls today. Patient lives alone and states he has fallen multiple times today and has been weak for at least a month. He did hit his head today, no LOC. Upon assessment patient complains of mid to lower back pain, left elbow pain, and left chest pain. CT Head, and spine ordered, chest xray, elbow xr ordered. Labs bmp, cbc, and cardiac enzymes ordered. EKG ordered. Morphine and 2L NS bolus given. EKG shows SR with no ST elevation. Elbow XR appears negative. Chest XR shows a possible left pneumothorax and left lateral rib fractures. CT chest ordered.Creatine 3.2, baseline .8, acute renal failure noted, NS @100ml/hr ordered. Goel catheter placed for accurate output. CT chest shows no pneumothorax or rib fractures. Head CT normal. CT abdomen shows a non obstructing renal stone and a left renal cyst. Patient will be admitted for further evaluation. UA abnormal shows large leukocyte esterase,+protein, wbc clumps, and bacteria, culture indicated. Rocephin IV given. Discussed with DR. Knowles who accepts to admit the patient for ARF and UTI. Medical Screen Exam Complete: Yes Emergency Medical Condition: Yes Differential Diagnosis Differential Diagnosis: ARF, UTI, Pyelonephritis, hydronephrosis Lab Data Lab results reviewed: Yes I reviewed the patient's lab results. Result diagrams: 03/06/18 17:03/06/18 17:09 Lab Results 03/06/18 03/06/18 03/06/18 Range/Units 17: 17: 18:43 WBC 10.6 (4.0-11.0) th/mm3 RBC 3.35 L (4.50-5.90) mil/mm3 Hgb 11.7 L (13.0-17.0) gm/dL Hct 34.5 L (39.0-51.0) % MCV 102.9 H (80.0-100.0) fL MCH 34.8 H (27.0-34.0) pg MCHC 33.8 (32.0-36.0) % RDW 15.6 (11.6-17.2) % Plt Count 252 (150-450) th/mm3 MPV 8.8 (7.0-11.0) fL Neut % (Auto) 80.6 H (16.0-70.0) % Lymph % (Auto) 11.0 (9.0-44.0) % [place] % (Auto) 7.6 (0.0-8.0) % Eos % (Auto) 0.3 (0.0-4.0) % Baso % (Auto) 0.5 (0.0-2.0) % Neut # (Auto) 8.5 H (1.8-7.7) th/mm3 Lymph # (Auto) 1.2 (1.0-4.8) th/mm3 [place] # (Auto) 0.8 (0.0-0.9) th/mm3 Eos # (Auto) 0.0 (0.0-0.4) th/mm3 Baso # (Auto) 0.1 (0.0-0.2) th/mm3 WBC Differential . Differential Comment Auto diff final Sodium 136 (136-145) meq/L Potassium 5.3 H (3.5-5.1) meq/L Chloride 106 (98-107) meq/L Carbon Dioxide 23.1 (21.0-32.0) meq/L Anion Gap 7 (5-15) meq/L BUN 43 H (7-18) mg/dL Creatinine 3.27 H (0.60-1.30) mg/dL Estimated GFR 19 L (>89) mL/min Random Glucose 158 H (74-106) mg/dL Calcium 8.5 (8.5-10.1) mg/dL Total Creatine Kinase 1717 H (39-308) U/L CK-MB (CK-2) 17.2 H (0.5-3.6) ng/mL CK-MB (CK-2) % 1.0 (0.0-4.0) % Troponin I Less than 0.02 L (0.02-0.05) ng/mL Urine Color Yellow (Yellw/Straw) Urine Clarity Cloudy H (Clear) Urine pH 5.0 (5.0-8.5) Ur Specific [place] 1.008 (1.002-1.035) Urine Protein 30 H (Neg-Trace) mg/dL Urine Glucose (UA) Negative (Negative) mg/dL Urine Ketones Negative (Negative) mg/dL Urine Occult Blood Moderate H (Negative) Urine Nitrate Negative (Negative) Urine Bilirubin Negative (Negative) Urine Urobilinogen Less than 2 (Less than 2) mg/dL Ur Leukocyte Esterase Large H (Negative) Urine RBC 3 (0-3) /hpf Urine WBC (0-5) /hpf Urine WBC Clumps Many H (None) Ur Squamous Epith Cells <1 (0-5) /hpf Urine Bacteria Moderate H (None) /hpf Hyaline Casts 19 (0-3) /lpf Urine Mucus Few H (Occasional) /lpf Micro UA Comment Culture indicated Ur Microscopic Review Not Reportable Urine Culture Comments Culture indicated Imaging Data Attestation: I personally reviewed and interpreted this imaging study as follows : My impression: Elbow XR shows no fracture Head CT shows no acute abnormalities Chest XR shows possible lateral rib fractures Lumbar spine CT negative Radiologist's impression: Cervical Spine CT 03/06/18 16:58 CONCLUSION: 1. Intervertebral disc space narrowing at both C5-6 and C6-7 without evidence of fracture. Moderate neural foraminal narrowing at the C5-6 level Elbow X-Ray 03/06/18 16:58 CONCLUSION: No evidence of recent bony injury. Head CT 03/06/18 16:58 CONCLUSION: 1. Negative CT Head non contrast. . Lumbar Spine CT 03/06/18 16:58 CONCLUSION: 1[address] Negative [address] Lumbar Spine non contrast. Thoracic Spine CT 03/06/18 16:58 CONCLUSION: 1. Negative CT Thoracic Spine non contrast. Chest X-Ray 03/06/18 17:02 CONCLUSION: 1. Appears to be left lateral basilar pneumothorax. 2. Left lower lateral rib fracture. Chest CT 03/06/18 17:45 CONCLUSION: 1. Negative CT Chest non contrast. No pneumothorax is identified. Abdomen/Pelvis CT 03/06/18 17:53 CONCLUSION: 1. No acute abnormality. 2. No splenic injury. 3. 3 mm nonobstructing right renal stone. 4. Either sludge or noncalcified stones involving an otherwise normal- appearing gallbladder. ECG Data EKG Prior to Arrival: Yes Attestation: I personally reviewed and interpreted this ECG as follows: Prior ECG tracings: not available for review Interpretation: SR with no ST elevation Discharge Plan Discharge Disposition Patient Disposition: 30 Still Patient Discharge Details Diagnosis: ARF (acute renal failure), Acute UTI Physicians Team ED Provider: Sumeet Fontenot ED Midlevel Provider: Nohemy Maya Primary Care Provider: Hayes Haynes Rxs /Orders / Referrals /Forms Prescriptions: No Action alendronate 70 mg Tablet 70 mg PO QWEEK RF: 0 doxepin 10 mg Capsule 10 mg PO HS RF: 0 quetiapine 100 mg Tablet 150 mg PO HS RF: 0 pantoprazole 40 mg Tablet,Delayed Release (Dr/Ec) 40 mg PO DAILY RF: 0 methotrexate sodium 15 mg Tablet 15 mg PO WEEKLY RF: 0 lamotrigine 100 mg Tablet 100 mg PO TID RF: 0 rosuvastatin 20 mg Tablet 20 mg PO DAILY RF: 0 fenofibrate nanocrystallized 145 mg Tablet 145 mg PO DAILY RF: 0 tofacitinib [Xeljanz] 5 mg Tablet 5 mg PO Q12H RF: 0 insulin aspart U-100 [Novolog U-100 Insulin aspart] 100 unit/mL Solution subcut ACHS RF: 0 gabapentin [Neurontin] 300 mg Capsule 300 mg PO TID RF: 0 doxepin 150 mg Capsule 150 mg PO HS PRN (Reason: Agitation) Qty: 14 RF: 0 glimepiride 2 mg Tablet 2 mg PO QAM RF: 0 metformin 1,000 mg Tablet 1,000 mg PO BID RF: 0 metoprolol tartrate 25 mg Tablet 12.5 mg PO BID RF: 0 lisinopril 20 mg Tablet 20 mg PO DAILY Qty: 0 RF: 0 Discharge Interventions Interventions: Vital Signs Last Done: 03/06/18 16:58 Status ED Status: With Doctor
[2018-03-06 17:22] LABS: Baso # (Auto) 0.1 th/mm3 (0.0-0.2); Baso % (Auto) 0.5 % (0.0-2.0); Eos % (Auto) 0.3 % (0.0-4.0); Hematocrit 34.5 % (39.0-51.0); Hemoglobin 11.7 gm/dL (13.0-17.0); Lymph # (Auto) 1.2 th/mm3 (1.0-4.8); Mean Corpuscular HGB Conc 33.8 % (32.0-36.0); Mean Corpuscular Hemoglobin 34.8 pg (27.0-34.0); Mean Corpuscular Volume 102.9 fL (80.0-100.0); Mean Platelet Volume 8.8 fL (7.0-11.0); Mono # (Auto) 0.8 th/mm3 (0.0-0.9); Mono % (Auto) 7.6 % (0.0-8.0); Neut # (Auto) 8.5 th/mm3 (1.8-7.7); Neut % (Auto) 80.6 % (16.0-70.0); Platelet Count 252 th/mm3 (150-450); Red Blood Count 3.35 mil/mm3 (4.50-5.90); Red Cell Distribution Width 15.6 % (11.6-17.2); White Blood Count 10.6 th/mm3 (4.0-11.0)
--- NOTE | 2018-03-06 17:40 | XR ---
EXAM DATE: 03/06/2018 5:30 PM EST AGE/SEX: 68 years / Male INDICATIONS: Shortness of breath post fall today. CLINICAL DATA: This is the patient's initial encounter. Patient reports that signs and symptoms have been present for 1 day and indicates a pain score of 0/10. MEDICAL/SURGICAL HISTORY: Hypertension. None. COMPARISON: [facility] [place]ST 1V SINGLE AP, 01/23/2018. . FINDINGS: A single AP view of the chest demonstrates the lungs to be symmetrically aerated without evidence of mass, infiltrate or effusion. The cardiomediastinal contours are unremarkable. Left lower lateral ri b fracture. There also appears to be left lateral basilar pneumothorax. CONCLUSION: 1. Appears to be left lateral basilar pneumothorax. 2. Left lower lateral rib fracture. Electronically signed by: Shahid Nguyen MD 03/06/2018 5:39 PM EST
--- NOTE | 2018-03-06 17:50 | XR ---
EXAM DATE: 03/06/2018 5:29 PM EST AGE/SEX: 68 years / Male INDICATIONS: Left elbow pain, post fall today. CLINICAL DATA: This is the patient's initial encounter. Patient reports that signs and symptoms have been present for 1 day and indicates a pain score of 7/10. MEDICAL/SURGICAL HISTORY: None. None. COMPARISON: No prior exams available for comparison. FINDINGS: Bony structures are intact and in normal alignment. Joints are intact without dislocation or signifi cant arthropathy. Osseous density is normal. Soft tissues are unremarkable. No radiopaque foreign bodies seen. CONCLUSION: No evidence of recent bony injury. Electronically signed by: Ashok Mathew MD 03/06/2018 5:49 PM EST
[2018-03-06 17:51] LABS: Anion Gap 7 meq/L (5-15); Blood Urea Nitrogen 43 mg/dL (7-18); Calcium 8.5 mg/dL (8.5-10.1); Carbon Dioxide 23.1 meq/L (21.0-32.0); Chloride 106 meq/L (98-107); Glomerular Filtration Rate 19 mL/min (>89); Glucose,Random 158 mg/dL (74-106); Potassium 5.3 meq/L (3.5-5.1); Sodium 136 meq/L (136-145)
[2018-03-06 18:04] LABS: Creatine Kinase 1717 U/L (39-308)
[2018-03-06] MEDS ORDERED: Sod Chloride 0.9% Inj 1,000 ML IV.CONT SCH (18:15)
[2018-03-06 18:16] LABS: Creatine Kinase MB 17.2 ng/mL (0.5-3.6)
--- NOTE | 2018-03-06 18:19 | CT ---
EXAM DATE: 03/06/2018 6:00 PM EST AGE/SEX: 68 years / Male INDICATIONS: Multiple falls. CLINICAL DATA: This is the patient's initial encounter. Patient reports that signs and symptoms have been present for 1 day and indicates a pain score of 7/10. MEDICAL/SURGICAL HISTORY: Hypertension. Diabetes. None. RADIATION DOSE: 64.63 CTDI (mGy) COMPARISON: [facility] [place], CT HEAD W/O CONTRAST, 01/23/2018. . TECHNIQUE: CT of the head without contrast. Using automated exposure control and adjustment of the mA and/or kV according to patient size, radiation dose was kept as low as reasonably achievable to ob tain optimal diagnostic quality images. DICOM format image data is available electronically for revi ew and comparison. FINDINGS: Cerebrum: The ventricles are normal for age. No evidence of midline shift, mass lesion, hemorrhage or acute infarction. No extraaxial fluid collections are seen. Posterior Fossa: The cerebellum and brainstem are intact. The 4th ventricle is midline. The cerebe llopontine angle is unremarkable. Extracranial: The visualized portion of the orbits is intact. Skull: The calvaria is intact. No evidence of skull fracture. CONCLUSION: 1. Negative CT Head non contrast. . Electronically signed by: Cliff Wilhelm MD 03/06/2018 6:17 PM EST
--- NOTE | 2018-03-06 18:24 | CT ---
EXAM DATE: 03/06/2018 6:13 PM EST AGE/SEX: 68 years / Male INDICATIONS: Fall possible pneumo seen on chest xray CLINICAL DATA: This is the patient's initial encounter. Patient reports that signs and symptoms have been present for 1 day and indicates a pain score of 7/10. MEDICAL/SURGICAL HISTORY: Hypertension. Diabetes. None. RADIATION DOSE: 10.09 CTDI (mGy) COMPARISON: [facility], CT LUNG SCREENING, 07/05/2017. . TECHNIQUE: Multiple contiguous axial images were obtained through the chest without contrast. Image s were obtained in suspended respiration using multiple row detector helical technique. Using automa jay exposure control and adjustment of the mA and/or kV according to patient size, radiation dose was kept as low as reasonably achievable to obtain optimal diagnostic quality images. DICOM format imag e data is available electronically for review and comparison. FINDINGS: Lungs: The lungs are symmetrically aerated. No infiltrates or nodular densities are seen. Mediastinum: There is good visualization of the great vessels of the middle mediastinum. No evidenc e of mediastinal or hilar adenopathy/mass. Pleurae: No evidence of focal thickening or pleural effusion. Axillae: Unremarkable. Bony Structures: Unremarkable. Miscellaneous: The examination was extended to include the upper abdomen, and both adrenal glands ar e normal in size and configuration. Small nodular liver capsule. A small noncalcified gallstones in t he dependent portion of the gallbladder. Bilateral renal cysts and right renal calculus. CONCLUSION: 1. Negative CT Chest non contrast. No pneumothorax is identified. Electronically signed by: Cliff Wilhelm MD 03/06/2018 6:22 PM EST
[2018-03-06] MEDS: Sod Chloride 0.9% Inj 1,000 ML IV.SIG SCH ×2 (18:26→19:03)
--- NOTE | 2018-03-06 18:27 | CT ---
EXAM DATE: 03/06/2018 6:18 PM EST AGE/SEX: 68 years / Male INDICATIONS: Fall splenic injury CLINICAL DATA: This is the patient's initial encounter. Patient reports that signs and symptoms have been present for 1 day and indicates a pain score of 7/10. MEDICAL/SURGICAL HISTORY: Diabetes. Hypertension. None. RADIATION DOSE: 10.09 CTDI (mGy) ; Combined studies COMPARISON: [facility] – [place], CT ABDOMEN & PELVIS W CONTRAST, 01/23/2018. . TECHNIQUE: Multiple contiguous axial images were obtained through the abdomen. Images were obtained using multiple row detector helical technique. Using automated exposure control and adjustment of the mA and/or kV according to patient size, radiation dose was kept as low as reasonably achievable to o btain optimal diagnostic quality images. DICOM format image data is available electronically for rev iew and comparison. FINDINGS: Lower Lungs: The visualized lower lungs are clear. Liver: The liver is homogeneously low in density. No laceration, mass, or ductal dilatation. The gall bladder contains layering high density material without wall thickening or pericholecystic fluid. Spleen: Homogeneous density without enlargement. No splenic laceration. Pancreas: Unremarkable without mass or calcification. Kidneys: Normal in size and shape. A 3 mm nonobstructing stone involving the right kidney. A 6.5 cm cyst involving the lower pole of the left kidney. No evidence of mass or hydronephrosis. Adrenal Glands: Unremarkable. Aorta: Diffuse atherosclerotic plaque without aneurysmal dilation. Bowel/Mesentery: The bowel loops are grossly unremarkable. The cecum and sigmoid colon have a normal configuration. Abdominal Wall: Intact. Retroperitoneum: No evidence of adenopathy in the retrocrural, para-aortic, or deep pelvic regions. Bladder: Contours are smooth. Reproductive Organs: No abnormal masses or calcifications seen. Inguinal: The inguinal region is unremarkable without evidence of adenopathy. Bony Structures: Unremarkable. CONCLUSION: 1. No acute abnormality. 2. No splenic injury. 3. 3 mm nonobstructing right renal stone. 4. Either sludge or noncalcified stones involving an otherwise normal-appearing gallbladder. Electronically signed by: Nash Alexis MD 03/06/2018 6:26 PM EST
--- NOTE | 2018-03-06 18:36 | CT ---
EXAM DATE: 03/06/2018 6:23 PM EST AGE/SEX: 68 years / Male INDICATIONS: Multiple falls. CLINICAL DATA: This is the patient's initial encounter. Patient reports that signs and symptoms have been present for 1 day and indicates a pain score of 7/10. MEDICAL/SURGICAL HISTORY: Hypertension. Diabetes. None. RADIATION DOSE: 22.68 CTDI (mGy) COMPARISON: No prior exams available for comparison. TECHNIQUE: Contiguous axial images were obtained using helical multirow detector technique. The vol umetric data was post-processed with multiplanar reconstruction in oblique axial, sagittal, and coron al planes. Using automated exposure control and adjustment of the mA and/or kV according to patient s ize, radiation dose was kept as low as reasonably achievable to obtain optimal diagnostic quality fior ges. DICOM format image data is available electronically for review and comparison. FINDINGS: Vertebrae: Normal vertebral body height. Intervertebral disc space narrowing at both C5-6 and C6-7 w ithout evidence of fracture Alignment: Normal. No subluxation. C2-3: The bony spinal canal is normal in size. No evidence of disc bulge or herniation. The neural foramina are bilaterally patent. C3-4: The bony spinal canal is normal in size. No evidence of disc bulge or herniation. The neural foramina are bilaterally patent. C4-5: The bony spinal canal is normal in size. No evidence of disc bulge or herniation. The neural foramina are bilaterally patent. C5-6: The bony spinal canal is normal in size. No evidence of disc bulge or herniation. The neural foramina are moderately narrowed bilaterally C6-7: The bony spinal canal is normal in size. No evidence of disc bulge or herniation. The neural foramina are mildly narrowed bilaterally. C7-T1: The bony spinal canal is normal in size. No evidence of disc bulge or herniation. The neura l foramina are bilaterally patent. CONCLUSION: 1. Intervertebral disc space narrowing at both C5-6 and C6-7 without evidence of fracture. Moderate neural foraminal narrowing at the C5-6 level Electronically signed by: Cliff Wilhelm MD 03/06/2018 6:35 PM EST
--- NOTE | 2018-03-06 18:39 | CT ---
EXAM DATE: 03/06/2018 6:29 PM EST AGE/SEX: 68 years / Male INDICATIONS: Fall back pain CLINICAL DATA: This is the patient's initial encounter. Patient reports that signs and symptoms have been present for 1 day and indicates a pain score of 7/10. MEDICAL/SURGICAL HISTORY: Diabetes. Hypertension. None. RADIATION DOSE: 29.41 CTDI (mGy) ; Combined studies COMPARISON: [facility] – [place], CT CERVICAL SPINE W/O CONTRAST, 03/06/2018. . TECHNIQUE: Contiguous axial images were acquired with a multirow detector CT scanner without contras t. Multiplanar reconstructions in the sagittal and coronal plane were also performed. Using automate d exposure control and adjustment of the mA and/or kV according to patient size, radiation dose was k ept as low as reasonably achievable to obtain optimal diagnostic quality images. DICOM format image data is available electronically for review and comparison. FINDINGS: Vertebrae: Normal vertebral body height. Alignment: Normal. No subluxation. T12-L1: The thecal sac has a normal diameter. No evidence of disc bulge or protrusion. The neural foramina are patent bilaterally. L1-L2: The thecal sac has a normal diameter. No evidence of disc bulge or protrusion. The neural f oramina are patent bilaterally. L2-L3: The thecal sac has a normal diameter. No evidence of disc bulge or protrusion. The neural f oramina are patent bilaterally. L3-L4: The thecal sac has a normal diameter. No evidence of disc bulge or protrusion. The neural f oramina are patent bilaterally. L4-L5: The thecal sac has a normal diameter. No evidence of disc bulge or protrusion. The neural f oramina are patent bilaterally. L5-S1: The thecal sac has a normal diameter. No evidence of disc bulge or protrusion. The neural f oramina are patent bilaterally. CONCLUSION: 1. Negative CT Lumbar Spine non contrast. Electronically signed by: Cliff Wilhelm MD 03/06/2018 6:37 PM EST
--- NOTE | 2018-03-06 18:53 | CT ---
EXAM DATE: 03/06/2018 6:28 PM EST AGE/SEX: 68 years / Male INDICATIONS: Multiple falls. CLINICAL DATA: This is the patient's initial encounter. Patient reports that signs and symptoms have been present for 1 day and indicates a pain score of 7/10. MEDICAL/SURGICAL HISTORY: Hypertension. Diabetes. None. RADIATION DOSE: 29.41 CTDI (mGy) ; Combined studies COMPARISON: [facility] [place], [place] CERVICAL SPINE W/O CONTRAST, 03/06/2018. . TECHNIQUE: Contiguous axial images were acquired using a multirow detector CT scanner without contra st. Multiplanar reconstruction in the sagittal and coronal planes was performed. Using automated exp osure control and adjustment of the mA and/or kV according to patient size, radiation dose was kept a s low as reasonably achievable to obtain optimal diagnostic quality images. DICOM format image data is available electronically for review and comparison. FINDINGS: Vertebrae: Normal vertebral body height. Multiple Schmorl's nodes but no acute fracture Alignment: Normal. No subluxation. T1 - T2: Normal. T2 - T3: The thecal sac has a normal diameter. No evidence of disc bulge or protrusion. T3 - T4: The thecal sac has a normal diameter. No evidence of disc bulge or protrusion. T4 - T5: The thecal sac has a normal diameter. No evidence of disc bulge or protrusion. T5 - T6: The thecal sac has a normal diameter. No evidence of disc bulge or protrusion. T6 - T7: The thecal sac has a normal diameter. No evidence of disc bulge or protrusion. T7 - T8: The thecal sac has a normal diameter. No evidence of disc bulge or protrusion. T8 - T9: The thecal sac has a normal diameter. No evidence of disc bulge or protrusion. T9 - T10: The thecal sac has a normal diameter. No evidence of disc bulge or protrusion. T10 - T11: The thecal sac has a normal diameter. No evidence of disc bulge or protrusion. T11 - T12: The thecal sac has a normal diameter. No evidence of disc bulge or protrusion. T12 - L1: The thecal sac has a normal diameter. No evidence of disc bulge or protrusion. CONCLUSION: 1. Negative CT Thoracic Spine non contrast. Electronically signed by: Cliff Wilhelm MD 03/06/2018 6:51 PM EST
[2018-03-06 19:08] LABS: Bacteria,Urine Moderate /hpf; Bilirubin,Urine Negative (Negative); Clarity,Urine Cloudy (Clear); Color,Urine Yellow (Yellw/Straw); Glucose,Urine (UA) Negative (Negative); Hyaline Casts,Urine 19 /lpf (0-3); Leukocyte Esterase,Urine Large (Negative); Mucus,Urine Few /lpf (Occasional); Nitrite,Urine Negative (Negative); Specific Gravity,Urine 1.008 (1.002-1.035); Squamous Epithelial Cell,Urine <1 /hpf (0-5)
[2018-03-06] MEDS ORDERED: Dextrose 50% in Water 50 ML Vial IV.PUSH PRN (19:58)
--- NOTE | 2018-03-06 19:59 | P.HP ---
History of Present Illness Service: [facility] adult med Primary Care Physician: Hayes Haynes Chief Complaint: frequent falls History of Present Illness: This is a 67-year-old male patient known to me from recent admission with a past medical history of rheumatoid arthritis, diabetes mellitus on oral medications and insulin, hypertension, hyperlipidemia, anxiety/depression, bipolar disorder, degenerative disc disease, long-term use of narcotics, mitral regurgitation, and tobacco dependency who presents to the ER for recurrent falls and presyncope. Patient lives alone and states he has fallen multiple times today and has been weak for at least a month. He states when he tries to get up and his legs feel weak and he just falls. He denies any dizziness prior to the falls. He states today he fell backwards and to the left and hit his head but denies any LOC. He complains of mid to lower back pain, Left chest pain and left elbow pain, aching, constant, 10/10, no radiating pain, but with associated vomiting, worse with touch and movement to left elbow. Chest pain is worse with deep breaths. He denies any recent illness, no cough, fever or chills. Upon arrival to the ER patient was hypotensive 74/40 and given 500ml bolus in route. His SBP is now in low 100s. Denies f/c. Patient states he had a tetanus shot 8 weeks ago at his pcp office. Patient takes morphine 30 mg in the morning and 15 at night as well as doxepin for sleep. Patient reports that when he has these falls he is almost always going from a seated to standing position. He reports that he feels somewhat lightheaded before passing out or falling to the floor. Says he is actually able to try to protect himself during some falls and others he seems to black out. He denies any chest pain or heart palpitations. Multiple CTs done on current visit revealing no acute abnormality. Echo and carotid u/s OK in late Dec 2017. It is noted that he only stayed briefly on the January 23 admission and was discharged to rehab. He reportedly was somewhat anxious and shaky and requested either discharge home or to rehab on the day after I admitted him in mid January. It is also noted from prior chart review the patient discarded tramadol he was given before and started back on morphine at home as it "worked better" for his pain. I suspect again that some of his recurrent falls and hypotensive episodes are likely associated with opiate overuse. On the current admission he also appears to have acute kidney injury and possible UTI however. PMH: rheumatoid arthritis, diabetes mellitus on oral medications and insulin, hypertension, hyperlipidemia, anxiety/depression, bipolar disorder, chronic kidney disease stage II, degenerative disc disease, long-term use of narcotics, mitral regurgitation, Dick, squamous cell carcinoma, B12 deficiency, vitamin D deficiency and tobacco dependency PSxH: Complete colonoscopy, EGD with biopsy, paravertebral nerve block facet joint, Rhizotomy Social history Denies current EtOH use but did drink heavily from ages [age] Current daily tobacco use 1 to 1-1/2 pack a day which he has done for over 35 years 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 He is but his of 28 years actually lives out in [place] somewhat estranged peer Denies illicit drug use - Diagnosis (1) Falls frequently (2) ARF (acute renal failure) (3) Urine findings abnormal (4) Weakness (5) Chronic pain (6) DM2 (diabetes mellitus, type 2) (7) Rhabdomyolysis Review of Systems Constitutional: Reports daytime sleepiness, Reports fatigue, Reports lack of energy, Reports weakness Ears, Nose, Mouth, and Throat: Denies abnormal hearing, Denies bleeding gums, Denies bad breath, Denies change in voice, Denies dental pain, Denies difficulty swallowing, Denies dizziness, Denies dry mouth, Denies ear discharge , Denies ear pain, Denies facial pain, Denies headache(s), Denies hearing loss, Denies hoarseness, Denies lip swelling, Denies nosebleed, Denies mouth lesions, Denies mouth pain, Denies nasal congestion, Denies nasal discharge, Denies nasal obstruction, Denies nasal trauma, Denies neck lump, Denies neck pain, Denies nose pain, Denies pain with swallowing, Denies poor balance, Denies post nasal drip, Denies ringing in the ears, Denies sinus pain, Denies sinus pressure , Denies sore throat, Denies throat swelling, Denies tongue swelling, Denies other Cardiovascular: Denies chest pain, Denies chest pain at rest, Denies chest pain with activity, Denies excessive sweating, Denies fainting, Denies fast heart rate, Denies foot swelling, Denies generalized swelling, Denies irregular heart rhythm, Denies leg pain with activity, Denies leg sores, Denies leg swelling, Denies lightheadedness, Denies radiating jaw, neck or arm pain, Denies rapid, pounding, or irregular heartbeat, Denies shortness of breath, Denies shortness of breath with activity, Denies shortness of breath when lying down, Denies shortness of breath causing sudden awakening, Denies slow heart rate, Denies other Respiratory: Denies change in phlegm color, Denies chest congestion, Denies cough, Denies coughing up blood, Denies excessive phlegm production, Denies pain on inspiration, Denies pain with cough, Denies shortness of breath, Denies shortness of breath with activity, Denies snoring, Denies stridor, Denies wheezing, Denies other Gastrointestinal: Reports abdominal pain Musculoskeletal: Reports abnormal walking, Reports back pain, Reports body aches , Reports joint pain, Reports muscle weakness Neurologic: Reports abnormal walking, Reports fainting, Reports frequent falls, Reports unsteadiness, Reports weakness PMFSH - History History Provided By: Patient - Medical History Medical History: Medical History (Last Reviewed 03/06/18 @ 17:11 by ABBI Veronica) Anxiety Bipolar 1 disorder Diabetes HTN (hypertension) Hyperlipemia - Tobacco History Second Hand Smoke Exposure: Yes Tobacco Use In Past 30 Days: Yes Smoking Status: Current every day smoker Tobacco Type: Cigarettes - Alcohol History How Often Do You Have a Drink Containing Alcohol: Never - Substance Use History Substance History: Past History - Travel History Recent Travel in the [place] Within the Last 8 Weeks: No Recent Travel Out of the Country Within the Last 8 Weeks: No - Immunization History Tetanus Immunization: Unsure Medications and Allergies Active Medications: Active Medications Sodium Chloride (Ns Inj) 1,000 mls @ 100 mls/hr IV.CONT .Q10H BRYAN Allergies Allergy/AdvReac Type Severity Reaction Status Date / Time aspirin Allergy Severe RASH & Verified 01/23/18 14:45 DECREASED BP ibuprofen Allergy Severe DECREASED Verified 01/23/18 14:45 BLOOD PRESSURE penicillin G Allergy Severe PASSED OUT Verified 01/23/18 14:45 fish oil Allergy Unknown Abdominal Verified 01/23/18 14:45 Pain oxycodone AdvReac Unknown NAUSEA/VOMI Verified 01/23/18 14:45 TING Home Medications Medication Instructions Recorded Confirmed Type alendronate 70 mg PO QWEEK 01/06/18 03/06/18 History doxepin 10 mg PO HS 01/06/18 03/06/18 History fenofibrate nanocrystallized 145 mg PO DAILY 01/06/18 03/06/18 History lamotrigine 100 mg PO TID 01/06/18 03/06/18 History methotrexate sodium 15 mg PO WEEKLY 01/06/18 03/06/18 History pantoprazole 40 mg PO DAILY 01/06/18 03/06/18 History quetiapine 150 mg PO HS 01/06/18 03/06/18 History rosuvastatin 20 mg PO DAILY 01/06/18 03/06/18 History tofacitinib [Xeljanz] 5 mg PO Q12H 01/06/18 03/06/18 History glimepiride 2 mg PO QAM 01/23/18 03/06/18 History metformin 1,000 mg PO BID 01/23/18 03/06/18 History metoprolol tartrate 12.5 mg PO BID 01/23/18 03/06/18 History Exam Vital signs: Vital Signs 03/06/18 16:51 03/06/18 16:58 Temperature 98.5 F Pulse Rate 92 H 97 H Respiratory Rate 20 Blood Pressure 92/61 L Pulse Oximetry 93 L Intake & Output 03/06/18 03/06/18 03/07/18 06:59 18:59 06:59 Intake Total 1000 / 1000 Balance 1000 / 1000 Weight 95.254 kg Intake: IV 1000 / 1000 NS Inj 1,000 ML @ 2000 mls/hr 1000 / 1000 IV.SIG Q30M [facility] Rx#:[id number] Narrative: GENERAL: No acute distress, recognizes me from previous admission, cooperative with exam. SKIN: Warm and dry. Few surface abrasions in various stages of healing on upper extremities and lower extremities. HEAD: Atraumatic. Normocephalic. EYES: Pupils equal and round. No scleral icterus. No injection or drainage. ENT: No nasal bleeding or discharge. Mucous membranes pink and moist. NECK: Trachea midline. No JVD. CARDIOVASCULAR: Regular rate and rhythm. RESPIRATORY: No accessory muscle use. Clear to auscultation. Breath sounds equal bilaterally. GASTROINTESTINAL: Abdomen soft, non-tender, nondistended. Hepatic and splenic margins not palpable. Tenderness palpation over left lower rib cage and left upper quadrant. MUSCULOSKELETAL: Extremities without clubbing, cyanosis, or edema. No obvious deformities. Abrasions as noted above. Tenderness palpation left lower rib cage. Mild paralumbar spasm. NEUROLOGICAL: Awake and alert. No obvious cranial nerve deficits. Motor grossly within normal limits. Normal speech. PSYCHIATRIC: Appropriate mood and affect; insight and judgment normal. Results - Labs CBC & Chem 7: 03/06/18 17:03/06/18 17:09 Labs: Laboratory Results - last 24 hr 03/06/18 03/06/18 03/06/18 17:09 17:09 18:43 WBC 10.6 RBC 3.35 L Hgb 11.7 L Hct 34.5 L MCV 102.9 H MCH 34.8 H MCHC 33.8 RDW 15.6 Plt Count 252 MPV 8.8 Neut % (Auto) 80.6 H Lymph % (Auto) 11.0 [place] % (Auto) 7.6 Eos % (Auto) 0.3 Baso % (Auto) 0.5 Neut # (Auto) 8.5 H Lymph # (Auto) 1.2 [place] # (Auto) 0.8 Eos # (Auto) 0.0 Baso # (Auto) 0.1 WBC Differential . Differential Comment Auto diff final Sodium 136 Potassium 5.3 H Chloride 106 Carbon Dioxide 23.1 Anion Gap 7 BUN 43 H Creatinine 3.27 H Estimated GFR 19 L Random Glucose 158 H Calcium 8.5 Total Creatine Kinase 1717 H CK-MB (CK-2) 17.2 H CK-MB (CK-2) % 1.0 Troponin I Less than 0.02 L Urine Color Yellow Urine Clarity Cloudy H Urine pH 5.0 Ur Specific [place] 1.008 Urine Protein 30 H Urine Glucose (UA) Negative Urine Ketones Negative Urine Occult Blood Moderate H Urine Nitrate Negative Urine Bilirubin Negative Urine Urobilinogen Less than 2 Ur Leukocyte Esterase Large H Urine RBC 3 Urine WBC Urine WBC Clumps Many H Ur Squamous Epith Cells <1 Urine Bacteria Moderate H Hyaline Casts 19 Urine Mucus Few H Micro UA Comment Culture indicated Ur Microscopic Review Not Reportable Urine Culture Comments Culture indicated - Imaging Impressions Cervical Spine CT 03/06/18 16:58 CONCLUSION: 1. Intervertebral disc space narrowing at both C5-6 and C6-7 without evidence of fracture. Moderate neural foraminal narrowing at the C5-6 level Elbow X-Ray 03/06/18 16:58 CONCLUSION: No evidence of recent bony injury. Head CT 03/06/18 16:58 CONCLUSION: 1. Negative CT Head non contrast. . Lumbar Spine CT 03/06/18 16:58 CONCLUSION: 1. Negative CT Lumbar Spine non contrast. Thoracic Spine CT 03/06/18 16:58 CONCLUSION: 1. Negative CT Thoracic Spine non contrast. Chest X-Ray 03/06/18 17:02 CONCLUSION: 1. Appears to be left lateral basilar pneumothorax. 2. Left lower lateral rib fracture. Chest CT 03/06/18 17:45 CONCLUSION: 1. Negative CT Chest non contrast. No pneumothorax is identified. Abdomen/Pelvis CT 03/06/18 17:53 CONCLUSION: 1. No acute abnormality. 2. No splenic injury. 3. 3 mm nonobstructing right renal stone. 4. Either sludge or noncalcified stones involving an otherwise normal- appearing gallbladder. Caprini VTE Risk Assessment Caprini VTE Risk Assessment: Moderate/High Risk (score >= 2) Caprini Risk Assessment Model: Point Value = 1 Point Value = 2 Point Value = 3 Point Value = 5 Age 41-60 Minor surgery BMI > 25 kg/m2 Swollen legs Varicose veins or History of unexplained or recurrent spontaneous Oral contraceptives or hormone replacement Sepsis (< 1 month) Serious lung disease, including pneumonia (< 1 month) Abnormal pulmonary function Acute myocardial infarction Congestive heart failure (< 1 month) History of inflammatory bowel disease Medical patient at bed rest Age 61-74 Arthroscopic surgery Major open surgery (> 45 min) Laparoscopic surgery (> 45 min) Malignancy Confined to bed (> 72 hours) Immobilizing plaster cast Central venous access Age >= 75 History of VTE Family history of VTE Factor V Leiden Prothrombin [id number] Lupus anticoagulant Anticardiolipin antibodies Elevated serum homocysteine Heparin-induced thrombocytopenia Other congenital or acquired thrombophilia Stroke (< 1 month) Elective arthroplasty Hip, pelvis, or leg fracture Acute spinal cord injury (< 1 month) Prophylaxis Regimen: Total Risk Factor Score Risk Level Prophylaxis Regimen 0-1 Low Early ambulation 2 Moderate Order ONE of the following: *Sequential Compression Device (SCD) *Heparin 5000 units SQ BID 3-4 Higher Order ONE of the following medications: *Heparin 5000 units SQ TID *Enoxaparin/Lovenox 40 mg SQ daily (WT < 150 kg, CrCl > 30 mL/min) *Enoxaparin/Lovenox 30 mg SQ daily (WT < 150 kg, CrCl > 10-29 mL/min) *Enoxaparin/Lovenox 30 mg SQ BID (WT < 150 kg, CrCl > 30 mL/min) AND/OR *Sequential Compression Device (SCD) 5 or more Highest Order ONE of the following medications: *Heparin 5000 units SQ TID (Preferred with Epidurals) *Enoxaparin/Lovenox 40 mg SQ daily (WT < 150 kg, CrCl > 30 mL/min) *Enoxaparin/Lovenox 30 mg SQ daily (WT < 150 kg, CrCl > 10-29 mL/min) *Enoxaparin/Lovenox 30 mg SQ BID (WT < 150 kg, CrCl > 30 mL/min) AND *Sequential Compression Device (SCD) Assessment and Plan - Assessment (1) Falls frequently Code(s): R29.6 - Repeated falls Status: Chronic Plan: Likely multifactorial associated with hypotension which may be associated with poor p.o. intake as well as excess opiate use. Will hydrate patient. Physical therapy see the patient. Hold off on opiates at this point. His outpatient pain management regimen needs to be monitored very closely in hopes of improving his quality of life and helping him avoid the need for hospitalization. (2) ARF (acute renal failure) Code(s): N17.9 - Acute kidney failure, unspecified Status: Acute Plan: GFR significantly reduced and creatinine is at least 3 times his baseline which is generally 0.9-1.0. We will hydrate the patient and follow closely. (3) Urine findings abnormal Code(s): R82.90 - Unspecified abnormal findings in urine Status: Acute Plan: Provide IV fluid as well as Rocephin. (4) Weakness Code(s): R53.1 - Weakness Status: Acute Plan: Likely associated with his chronic pain and opiate use. We will hydrate the patient and have physical therapy work with him. (5) Chronic pain Code(s): G89.29 - Other chronic pain Status: Chronic Plan: As above. (6) DM2 (diabetes mellitus, type 2) Code(s): E11.9 - Type 2 diabetes mellitus without complications Status: Acute Plan: We will start diabetic diet and sliding scale insulin. Outpatient A1c was 7.1 on February 01, 2018. (7) Rhabdomyolysis Code(s): M62.82 - Rhabdomyolysis Status: Acute Plan: Appears to be mild. Provide IV fluids and monitor CK. - Plan Code Status: full Discussed Condition With: Patient and ER provider (2) ARF (acute renal failure) Qualifiers: Acute renal failure type: unspecified Qualified Code(s): N17.9 - Acute kidney failure, unspecified (5) Chronic pain Qualifiers: Chronic pain type: chronic pain syndrome Qualified Code(s): G89.4 - Chronic pain syndrome
[2018-03-06] MEDS: Sod Chloride 0.9% Inj 1,000 ML IV.CONT SCH (23:00)
[2018-03-06] MEDS: Insulin NovoLOG Aspart Correctional Sugar Inj SQ SCH (23:01)
[2018-03-07 01:21] LABS: Amphetamine Screen,Urine Neg (Neg); Barbiturate Screen,Urine Neg (Neg); Cannabinoid Screen,Urine Neg (Neg); Cocaine Screen,Urine Neg (Neg)
[2018-03-07 01:26] LABS: Opiate Screen,Urine Pos (Neg)
[2018-03-07] MEDS: Sod Chloride 0.9% Inj 1,000 ML IV.CONT SCH ×2 (05:25→14:30)
[2018-03-07] MEDS ORDERED: Morphine Inj 4 MG/ML Vial IV.PUSH ONE (05:45)
[2018-03-07] MEDS ORDERED: MethylPREDNISolone Sod Succinate Inj 125 MG/2 ML Vial IV.PUSH ONE (09:34)
[2018-03-07 09:39] LABS: Calcium 8.5 mg/dL (8.5-10.1); Carbon Dioxide 20.7 meq/L (21.0-32.0); Potassium 4.7 meq/L (3.5-5.1)
[2018-03-07 10:08] LABS: CKMB Percent 0.4 % (0.0-4.0)
--- NOTE | 2018-03-07 10:30 | ECG ---
Date Performed: 03/06/2018 Time Performed: 16:58:09 PTAGE: 68 years EKG: Sinus rhythm BORDERLINE LEFT AXIS DEVIATION POSSIBLE RIGHT VENTRICULAR CONDUCTION DELAY BORDERLINE ECG PREVIOUS TRACING : 03/06/2018 15.27 DOCTOR: Cliff Sherman Interpretating Date/Time 03/07/2018 10:28:42
[2018-03-07] MEDS: Insulin NovoLOG Aspart Correctional Sugar Inj SQ SCH ×4 (10:50→20:50)
--- NOTE | 2018-03-07 11:14 | P.PNIM ---
Subjective Interval history: pt c/o left flank pains. worse with inspiration. Physical Exam Vital signs: Last Vital Signs Temp 98.3 F 03/07/18 08:00 Pulse 107 H 03/07/18 08:00 Resp 22 03/07/18 08:00 BP 121/75 03/07/18 08:00 Pulse Ox 94 L 03/07/18 08:00 Narrative: pt able to sit up left lateral chest wall tenderness to palpation heart reg lung cta abd s/nt ext no edema calderón Results Labs CBC & Chem 7: 03/06/18 17:09 03/07/18 07:31 Assessment and Plan Assessment (1) Falls frequently: Code(s): R29.6 - Repeated falls Status: Chronic (2) ARF (acute renal failure): Code(s): N17.9 - Acute kidney failure, unspecified Status: Inactive (3) Urine findings abnormal: Code(s): R82.90 - Unspecified abnormal findings in urine Status: Acute (4) Weakness: Code(s): R53.1 - Weakness Status: Acute (5) Chronic pain: Code(s): G89.29 - Other chronic pain Status: Chronic (6) DM2 (diabetes mellitus, type 2): Code(s): E11.9 - Type 2 diabetes mellitus without complications Status: Acute (7) Rhabdomyolysis: Code(s): M62.82 - Rhabdomyolysis Status: Acute Plan - Assessment (1) Falls frequently Falls frequently - Pt has had multile admissions for falls and sent to snf. [place] related to pain medication and orthostasis. When pt returns home he resumed his original medications and then has recurrent sx's. - Now returns with hypotension, grace, rhabdomyolyis and left rib fracture from falls. Possible uti. -CT chest/abdomen/pelvis/brain/t spine/L spine unremarkable. -GRACE. continue ivf hydration. improving. dc calderón -UTI. f/u pending cx cont rocephin -Rhabdo cont ivf. monitor cr Chronic pain - Ultram PRN DM2 (diabetes mellitus, type 2) - Provide sliding scale insulin - A1c was 6.9 earlier this year. Hypotension hold any bp med hold morphine PT consult _ (1) Chronic pain Qualifiers: Chronic pain type: chronic pain syndrome Qualified Code(s): G89.4 - Chronic pain syndrome (2) ARF (acute renal failure) Qualifiers: Acute renal failure type: unspecified Qualified Code(s): N17.9 - Acute kidney failure, unspecified (3) DM2 (diabetes mellitus, type 2) Qualifiers: Chronic kidney disease stage: Diabetes mellitus complication detail: Diabetes mellitus complication status: Diabetes mellitus senior living insulin use : Diabetes mellitus macular edema: Diabetic retinopathy severity: Laterality: Proliferative retinopathy type: (4) Rhabdomyolysis Qualifiers: Encounter type: Rhabdomyolysis type:
--- NOTE | 2018-03-07 16:10 | MB ---
cc: Ladarius Salazar MD, PhD DATE: 03/07/2018 REASON FOR CONSULTATION: Frequent falls. HISTORY OF PRESENT ILLNESS: This is a 68-year-old man who states he has had several episodes of falling. He states that this is usually when he is upright. He feels a sense of lightheadedness. He does not actually pass out with any falls to the ground. He is not able to get up until somebody helps him. There is no tonic-clonic activity. No focal weakness. He feels weak in general. He has no seizure activity. PAST MEDICAL HISTORY: Rheumatoid arthritis, diabetes, on oral medicine and has hypertension, hyperlipidemia, anxiety, depression, bipolar disorder, chronic kidney disease, long-term narcotic use, mitral regurgitation, squamous cell carcinoma, B12 deficiency, vitamin D deficiency. PHYSICAL EXAMINATION: NEUROLOGIC: He is alert and oriented. Cranial nerves are intact. Motor exam is normal in the upper extremities. His lower extremity strength is normal, rated at 5/5 in bilateral lower extremities. He has some giveaway weakness in the legs, but I think this is primarily due to pain. Deep tendon reflexes are symmetric. IMAGING STUDIES: CT brain unremarkable for any acute change. He had a CT of the cervical spine, which shows mild degenerative changes, no significant stenosis, no fractures identified. CT thoracic spine normal. CT lumbar spine, mild degenerative disk disease at L4-5 and L5-S1. No evidence of any significant stenosis, no fracture. LABORATORY DATA: White count 10,600, hemoglobin 11.7, hematocrit 34%, platelet count 252,000. Sodium is 138, the potassium 4.7, chloride 111, CO2 of 21, BUN is 29, creatinine 1.62, GFR is 42, glucose 165. IMPRESSION: Episodes sound like presyncope. Suspect orthostatic hypotension. RECOMMENDATIONS: We will check orthostatic blood pressure and pulse. Ladarius Salazar MD, PhD MARLA/mile , 03:42 PM , 03:55 PM
[2018-03-08] MEDS: Sod Chloride 0.9% Inj 1,000 ML IV.CONT SCH ×2 (00:35→14:10)
[2018-03-08 07:51] LABS: Alanine Aminotransferase 22 U/L (12-78); Anion Gap 11 meq/L (5-15); Aspartate Aminotransferase 35 U/L (15-37); Blood Urea Nitrogen 25 mg/dL (7-18); Calcium 8.4 mg/dL (8.5-10.1); Carbon Dioxide 19.5 meq/L (21.0-32.0); Chloride 109 meq/L (98-107); Glomerular Filtration Rate 70 mL/min (>89); Glucose,Random 158 mg/dL (74-106); Potassium 4.3 meq/L (3.5-5.1); Sodium 139 meq/L (136-145)
[2018-03-08 07:54] LABS: Alkaline Phosphatase 46 U/L (45-117); Creatine Kinase 587 U/L (39-308)
[2018-03-08 08:10] LABS: CKMB Percent 0.3 % (0.0-4.0); Creatine Kinase MB 1.7 ng/mL (0.5-3.6)
[2018-03-08] MEDS: Insulin NovoLOG Aspart Correctional Sugar Inj SQ SCH ×4 (09:30→20:32)
--- NOTE | 2018-03-08 17:01 | P.PNIM ---
Subjective Interval history: No new complaints. Pt continues to have pain at left lower rib cage c/w his rib fractures, worse with movement. Pt has been ambulating to the bathroom. Physical Exam Vital signs: Last Vital Signs Temp 98 F 03/08/18 16:00 Pulse 103 H 03/08/18 16:00 Resp 20 03/08/18 16:00 BP 117/73 03/08/18 16:00 Pulse Ox 95 03/08/18 16:00 Narrative: pt able to sit up left lateral chest wall tender to palpation heart reg lung cta abd s/nt ext no edema calderón Results Labs CBC & Chem 7: 03/06/18 17:09 03/08/18 06:40 Assessment and Plan Assessment (1) Falls frequently: Code(s): R29.6 - Repeated falls Status: Chronic (2) ARF (acute renal failure): Code(s): N17.9 - Acute kidney failure, unspecified Status: Inactive (3) Urine findings abnormal: Code(s): R82.90 - Unspecified abnormal findings in urine Status: Acute (4) Weakness: Code(s): R53.1 - Weakness Status: Acute (5) Chronic pain: Code(s): G89.29 - Other chronic pain Status: Chronic (6) DM2 (diabetes mellitus, type 2): Code(s): E11.9 - Type 2 diabetes mellitus without complications Status: Acute (7) Rhabdomyolysis: Code(s): M62.82 - Rhabdomyolysis Status: Acute Plan - Assessment (1) Falls frequently Falls frequently - Pt has had multile admissions for falls and sent to snf. [place] related to pain medication and orthostasis. When pt returns home he resumed his original medications and then has recurrent sx's. - Now returns with hypotension, grace, rhabdomyolyis and left rib fracture from falls. Possible uti. - CT chest/abdomen/pelvis/brain/t spine/L spine unremarkable. No pneumothorax - CXR (03/06) --> left lower later rib fracture - Pt blood pressure stabilized off long acting morphine - continue ultram prn pain - On previous admissions, pt was informed to stop long acting morphine as this was causing hypotension, weakness, and falls. However, pt resumed the morphine upon discharge. Again, I am informing pt that he should NOT resume long acting morphine. Resumption of long acting morphine may again lead to hypotension, falls, readmission, or injury. - f/u with PCP, Dr. Eladio Haynes one week after discharge - see discharge orders -GRACE. resolved with IVFs -UTI. - urine Cx (03/06) --> enterococcus faecalis with broad sensitivity. - Pt has received rocephin x 2d - discharge on ciprofloxin 250mg BID x 5d -Rhabdo - improved with IVFs - CK 1,717 (03/06), 1380 (03/07), 587 (03/08) Chronic pain - Ultram PRN - I stongly feel that pt should NOT be resume on MS contin, see above DM2 (diabetes mellitus, type 2) - Provide sliding scale insulin - A1c was 6.9 earlier this year. - resume outpt treatment upon discharge _ (1) Chronic pain Qualifiers: Chronic pain type: chronic pain syndrome Qualified Code(s): G89.4 - Chronic pain syndrome (2) ARF (acute renal failure) Qualifiers: Acute renal failure type: unspecified Qualified Code(s): N17.9 - Acute kidney failure, unspecified (3) DM2 (diabetes mellitus, type 2) Qualifiers: Chronic kidney disease stage: Diabetes mellitus complication detail: Diabetes mellitus complication status: Diabetes mellitus termination clerk insulin use : Diabetes mellitus macular edema: Diabetic retinopathy severity: Laterality: Proliferative retinopathy type: (4) Rhabdomyolysis Qualifiers: Encounter type: Rhabdomyolysis type:
--- NOTE | 2018-03-08 18:58 | P.PNNEU ---
Subjective Subjective Comments: no new neurologic sx. denies dizzyness Active Medications: Active Medications Dextrose (D50w Vial) 50 ml IV.PUSH UNSCH PRN PRN Reason: PER HYPOGLYCEMIA PROTOCOL Glucagon (Glucagon Inj) 1 mg OTHER PRN PRN PRN Reason: for Hypoglycemia Protocol Ceftriaxone Sodium 1,000 mg/ (Sodium Chloride) 100 mls @ 200 mls/hr IV.SIG Q24H BRYAN Last Infusion: 03/07/18 20:53 Dose: Infused Insulin Aspart (Novolog Insulin Correctional Sugar Inj) 0 unit SQ ACHS BRYAN; Protocol Last Admin: 03/08/18 14:10 Dose: 1 unit Tramadol HCl (Ultram) 50 mg PO Q6H PRN PRN Reason: pain level 3-10 Last Admin: 03/08/18 14:09 Dose: 50 mg Allergies/Adverse Reactions: Allergies Allergy/AdvReac Type Severity Reaction Status Date / Time aspirin Allergy Severe RASH & Verified 01/23/18 14:45 DECREASED BP ibuprofen Allergy Severe DECREASED Verified 01/23/18 14:45 BLOOD PRESSURE penicillin G Allergy Severe PASSED OUT Verified 01/23/18 14:45 fish oil Allergy Unknown Abdominal Verified 01/23/18 14:45 Pain oxycodone AdvReac Unknown NAUSEA/VOMI Verified 01/23/18 14:45 TING Physical Exam Vital signs: Vital Signs 03/07/18 20:00 03/07/18 23:58 03/08/18 04:00 Temperature 98.3 F 98.5 F 98.1 F Pulse Rate 120 H 111 H 110 H Respiratory Rate 18 18 18 Blood Pressure 111/76 118/71 114/62 Pulse Oximetry 95 94 L 96 03/08/18 08:00 03/08/18 12:00 03/08/18 16:00 Temperature 98.2 F 98.3 F 98 F Pulse Rate 104 H 136 H 103 H Respiratory Rate 21 20 20 Blood Pressure 112/56 L 129/86 117/73 Pulse Oximetry 94 L 96 95 03/08/18 17:25 Temperature Pulse Rate Respiratory Rate Blood Pressure Pulse Oximetry 95 Intake & Output 03/07/18 03/08/18 03/08/18 18:59 06:59 18:59 Intake Total 680 / 680 1979 / 1979 650 / 650 Output Total 1050 / 1050 1900 / 1900 200 / 200 Balance -370 / -370 80 / 80 450 / 450 Weight 95.3 kg Intake: IV 1100 / 1100 100 / 100 NS Inj 1,000 ML @ 100 mls/hr IV 1000 / 1000 100 / 100 .CONT .Q10H BRYAN Rx#:[id number] Rocephin Inj 1,000 MG In NS Inj 100 / 100 100 ML @ 200 mls/hr IV.SIG Q24H BRYAN Rx#:[id number] Oral 680 / 680 880 / 880 550 / 550 Output: Urine 150 / 150 1900 / 1900 200 / 200 Urine Amount (Catheter) 900 / 900 Indwelling Urethral Catheter 900 / 900 Other: # Voids 3 2 # Bowel Movements 0 1 - Routine Neurological Exam alert, speech normal CN intact MOTOR 5./5 BUE - Urinary Catheter Management Indwelling Urethral Catheter Cath placed during this visit: yes Reason for continuing: Hourly intake/output Insertion date: 03/06/18 Insertion time: 18:41 Objective Laboratory Results - last 24 hr 03/07/18 03/08/18 03/08/18 20:48 06:40 08:45 Sodium 139 Potassium 4.3 Chloride 109 H Carbon Dioxide 19.5 L Anion Gap 11 BUN 25 H Creatinine 1.05 Estimated GFR 70 L POC Glucose 133 H 161 H Random Glucose 158 H Calcium 8.4 L Total Bilirubin 0.7 AST 35 ALT 22 Alkaline Phosphatase 46 Total Creatine Kinase 587 H CK-MB (CK-2) 1.7 CK-MB (CK-2) % 0.3 Total Protein 7.0 Albumin 3.0 L 03/08/18 03/08/18 14:06 17:38 Sodium Potassium Chloride Carbon Dioxide Anion Gap BUN Creatinine Estimated GFR POC Glucose 173 H 130 H Random Glucose Calcium Total Bilirubin AST ALT Alkaline Phosphatase Total Creatine Kinase CK-MB (CK-2) CK-MB (CK-2) % Total Protein Albumin Microbiology 03/06/18 18:43 Urine Culture - Final Clean Catch Urine Enterococcus faecalis Review/Management - Review/Management Plan: presyncope--probably related to orthostatic BP changes
[2018-03-09 09:34] VITALS: RESP 18
[2018-03-09] MEDS: Insulin NovoLOG Aspart Correctional Sugar Inj SQ SCH ×2 (09:41→13:15)
--- NOTE | 2018-03-09 11:55 | P.DCO ---
Diagnosis (1) Falls frequently: Status: Chronic (2) ARF (acute renal failure): Status: Inactive (3) Urine findings abnormal: Status: Acute (4) Weakness: Status: Acute (5) Chronic pain: Status: Chronic (6) DM2 (diabetes mellitus, type 2): Status: Acute Physical Therapy Order: Evaluate and treat, Improve ambulation and Strength and gait training Home Health Nursing Order: Medical education, Signs/symptoms of disease process, Diabetic education , Medication education-adverse effect and Nursing assessment with vital signs Case Management Consult Case Management Consult-Home Health: Yes I have seen patient Ladarius Nguyen JR on 03/09/18. My clinical findings support the need for the requested home health care services because: Limited mobility due to disease progression, Deconditioned with increased weakness, Medication compliance is questionable, Limited ability to care for self, Need for psychosocial assistance, Impaired cognition/judgement and High risk of falls I certify that my clinical findings support that this patient is homebound because: Impaired cognitive ability/safety, Unsteady gait/balance, Unsafe to leave home unassisted, Need for psychosocial assistance and Unable to use public transportation _ (1) Chronic pain Qualifiers: Chronic pain type: chronic pain syndrome Qualified Code(s): G89.4 - Chronic pain syndrome (2) ARF (acute renal failure) Qualifiers: Acute renal failure type: unspecified Qualified Code(s): N17.9 - Acute kidney failure, unspecified (3) DM2 (diabetes mellitus, type 2) Qualifiers: Chronic kidney disease stage: Diabetes mellitus complication detail: Diabetes mellitus complication status: Diabetes mellitus chcf insulin use : Diabetes mellitus macular edema: Diabetic retinopathy severity: Laterality: Proliferative retinopathy type:
--- NOTE | 2018-03-09 14:08 | P.DS ---
DS: Providers Date of admission: 03/06/18 19:51 Primary care physician: Hayes Haynes Consults: 03/06/18 21:21 Consult to Neurology Routine Consulting Provider: Ladarius Salazar Reason for Consultation: frequent falls, ?syncope vs seizure Notified:: Service Spoke with:: alva Date Notified:: 03/06/18 Time Notified:: 22:07 Ordering Provider: GOKUL 03/09/18 08:35 HUB Only Consult Order Routine Consulting Provider: Tiffanie Ramirez 03/09/18 12:12 HUB Only Consult Order Routine Consulting Provider: Tiffanie Monroy Brief History from admission: This is a 67-year-old male patient known to me from recent admission with a past medical history of rheumatoid arthritis, diabetes mellitus on oral medications and insulin, hypertension, hyperlipidemia , anxiety/depression, bipolar disorder, degenerative disc disease, long-term use of narcotics, mitral regurgitation, and tobacco dependency who presents to the ER for recurrent falls and presyncope. Patient lives alone and states he has fallen multiple times today and has been weak for at least a month. He states when he tries to get up and his legs feel weak and he just falls. He denies any dizziness prior to the falls. He states today he fell backwards and to the left and hit his head but denies any LOC. He complains of mid to lower back pain, Left chest pain and left elbow pain, aching, constant, 10/10, no radiating pain, but with associated vomiting, worse with touch and movement to left elbow. Chest pain is worse with deep breaths. He denies any recent illness , no cough, fever or chills. Upon arrival to the ER patient was hypotensive 74/ 40 and given 500ml bolus in route. His SBP is now in low 100s. Denies f/c. Patient states he had a tetanus shot 8 weeks ago at his pcp office. Patient takes morphine 30 mg in the morning and 15 at night as well as doxepin for sleep. Patient reports that when he has these falls he is almost always going from a seated to standing position. He reports that he feels somewhat lightheaded before passing out or falling to the floor. Says he is actually able to try to protect himself during some falls and others he seems to black out. He denies any chest pain or heart palpitations. Multiple CTs done on current visit revealing no acute abnormality. Echo and carotid u/s OK in late Dec 2017. It is noted that he only stayed briefly on the January 23 admission and was discharged to rehab. He reportedly was somewhat anxious and shaky and requested either discharge home or to rehab on the day after I admitted him in mid January. It is also noted from prior chart review the patient discarded tramadol he was given before and started back on morphine at home as it "worked better" for his pain. I suspect again that some of his recurrent falls and hypotensive episodes are likely associated with opiate overuse. On the current admission he also appears to have acute kidney injury and possible UTI however. PMH: rheumatoid arthritis, diabetes mellitus on oral medications and insulin, hypertension, hyperlipidemia, anxiety/depression, bipolar disorder, chronic kidney disease stage II, degenerative disc disease, long-term use of narcotics, mitral regurgitation, Idck, squamous cell carcinoma, B12 deficiency, vitamin D deficiency and tobacco dependency PSxH: Complete colonoscopy, EGD with biopsy, paravertebral nerve block facet joint, Rhizotomy Social history Denies current EtOH use but did drink heavily from ages [age] Current daily tobacco use 1 to 1-1/2 pack a day which he has done for over 35 years Previously was an over the road industrial truck mechanic He is but his of 28 years actually lives out in [place] somewhat estranged peer Denies illicit drug use DS: Diagnosis Discharge Diagnosis (1) Falls frequently: Status: Chronic (2) ARF (acute renal failure): Status: Inactive (3) Urine findings abnormal: Status: Acute (4) Weakness: Status: Acute (5) Chronic pain: Status: Chronic (6) DM2 (diabetes mellitus, type 2): Status: Acute (7) Rhabdomyolysis: Status: Acute DS: Summary - Assessment (1) Falls frequently Falls frequently - Pt has had multile admissions for falls and sent to [facility]. [place] related to pain medication and orthostasis. When pt returns home he resumed his original medications and then has recurrent sx's. - Now returns with hypotension, grace, rhabdomyolyis and left rib fracture from falls. Possible uti. - CT chest/abdomen/pelvis/brain/t spine/L spine unremarkable. No pneumothorax - CXR (03/06) --> left lower later rib fracture - Pt blood pressure stabilized off long acting morphine - continue ultram prn pain - On previous admissions, pt was informed to stop long acting morphine as this was causing hypotension, weakness, and falls. However, pt resumed the morphine upon discharge. Again, I am informing pt that he should NOT resume long acting morphine. Resumption of long acting morphine may again lead to hypotension, falls, readmission, or injury. - discharge to home with [facility] and home PT - f/u with PCP, Dr. Eladio Haynes one week after discharge - see discharge orders -GRACE. resolved with IVFs -UTI. - urine Cx (03/06) --> enterococcus faecalis with broad sensitivity. - Pt has received rocephin x 2d - discharge on ciprofloxin 250mg BID x 5d -Rhabdo - improved with IVFs - CK 1,717 (03/06), 1380 (03/07), 587 (03/08) Chronic pain - Ultram PRN - I stongly feel that pt should NOT be resume on MS contin, see above DM2 (diabetes mellitus, type 2) - Provide sliding scale insulin - A1c was 6.9 earlier this year. - resume outpt treatment upon discharge Time Spent with Patient Total time spent providing and/or coordinating discharge services: Results Labs on day of discharge: Labs from last 24 hours 03/09/18 03/09/18 03/08/18 12:21 09:03 20:29 POC Glucose 133 H 159 H 151 H TSH 03/08/18 03/08/18 03/08/18 17:38 14:06 06:40 POC Glucose 130 H 173 H TSH 0.479 Impressions ITS Impressions Cervical Spine CT 03/06/18 16:58 CONCLUSION: 1. Intervertebral disc space narrowing at both C5-6 and C6-7 without evidence of fracture. Moderate neural foraminal narrowing at the C5-6 level Elbow X-Ray 03/06/18 16:58 CONCLUSION: No evidence of recent bony injury. Head CT 03/06/18 16:58 CONCLUSION: 1. Negative CT Head non contrast. . Lumbar Spine CT 03/06/18 16:58 CONCLUSION: 1. Negative CT Lumbar Spine non contrast. Thoracic Spine CT 03/06/18 16:58 CONCLUSION: 1. Negative CT Thoracic Spine non contrast. Chest X-Ray 03/06/18 17:02 CONCLUSION: 1. Appears to be left lateral basilar pneumothorax. 2. Left lower lateral rib fracture. Chest CT 03/06/18 17:45 CONCLUSION: 1. Negative CT Chest non contrast. No pneumothorax is identified. Abdomen/Pelvis CT 03/06/18 17:53 CONCLUSION: 1. No acute abnormality. 2. No splenic injury. 3. 3 mm nonobstructing right renal stone. 4. Either sludge or noncalcified stones involving an otherwise normal- appearing gallbladder. Discharge Plan Physicians Team Primary Care Provider: Hayes Haynes Attending Provider: Rahul Hill Other Providers: Ladarius Salazar ; Tiffanie Ramirez ; [facility] Rxs /Orders / Referrals /Forms Prescriptions: No Action alendronate 70 mg Tablet 70 mg PO QWEEK RF: 0 doxepin 10 mg Capsule 10 mg PO HS RF: 0 quetiapine 100 mg Tablet 150 mg PO HS RF: 0 pantoprazole 40 mg Tablet,Delayed Release (Dr/Ec) 40 mg PO DAILY RF: 0 methotrexate sodium 15 mg Tablet 15 mg PO WEEKLY RF: 0 lamotrigine 100 mg Tablet 100 mg PO TID RF: 0 rosuvastatin 20 mg Tablet 20 mg PO DAILY RF: 0 fenofibrate nanocrystallized 145 mg Tablet 145 mg PO DAILY RF: 0 tofacitinib [Xeljanz] 5 mg Tablet 5 mg PO Q12H RF: 0 insulin aspart U-100 [Novolog U-100 Insulin aspart] 100 unit/mL Solution subcut ACHS RF: 0 gabapentin [Neurontin] 300 mg Capsule 300 mg PO TID RF: 0 doxepin 150 mg Capsule 150 mg PO HS PRN (Reason: Agitation) Qty: 14 RF: 0 glimepiride 2 mg Tablet 2 mg PO QAM RF: 0 metformin 1,000 mg Tablet 1,000 mg PO BID RF: 0 metoprolol tartrate 25 mg Tablet 12.5 mg PO BID RF: 0 lisinopril 20 mg Tablet 20 mg PO DAILY Qty: 0 RF: 0 Referrals: Hayes Haynes D.O. [Primary Care Provider] - See Instructions Status ED Status: Left Department
[2018-03-09] MEDS ORDERED: Metoprolol Tartrate 25 MG Tablet PO SCH (14:15)
[2018-03-09 15:38] VITALS: BP 146/79; PULSE 94; TEMP 97.9; O2SAT 94
== END 2018-03-09 17:28 | disposition home health service (06) ==
LOC: NEPE 16:42 → NEDA 19:51 → H7ONC 21:10 → N05 03-07 08:53 → H7ONC 03-07 08:54
PROVIDERS: ADMIT Hospitalist; ATTEND Hospitalist
DX: S22.32XA Fracture of one rib, left side, initial encounter for closed fracture; E53.8 Deficiency of other specified B group vitamins; Z79.4 Long term (current) use of insulin; S40.812A Abrasion of left upper arm, initial encounter; B95.2 Enterococcus as the cause of diseases classified elsewhere; I12.9 Hypertensive chronic kidney disease with stage 1 through stage 4 chronic kidney disease, or unspecified chronic kidney disease; Z79.891 Long term (current) use of opiate analgesic; Z88.5 Allergy status to narcotic agent; F31.9 Bipolar disorder, unspecified; E55.9 Vitamin D deficiency, unspecified; M06.9 Rheumatoid arthritis, unspecified; F41.9 Anxiety disorder, unspecified; Z88.6 Allergy status to analgesic agent; E11.311 Type 2 diabetes mellitus with unspecified diabetic retinopathy with macular edema; F17.210 Nicotine dependence, cigarettes, uncomplicated; E11.22 Type 2 diabetes mellitus with diabetic chronic kidney disease; N20.0 Calculus of kidney; G89.4 Chronic pain syndrome; N17.9 Acute kidney failure, unspecified; S80.811A Abrasion, right lower leg, initial encounter; T40.2X5A Adverse effect of other opioids, initial encounter; M62.82 Rhabdomyolysis; E78.5 Hyperlipidemia, unspecified; N39.0 Urinary tract infection, site not specified; K75.81 Nonalcoholic steatohepatitis (NASH); R29.6 Repeated falls; N18.2 Chronic kidney disease, stage 2 (mild); M50.30 Other cervical disc degeneration, unspecified cervical region; I95.9 Hypotension, unspecified; I34.0 Nonrheumatic mitral (valve) insufficiency; Z88.0 Allergy status to penicillin; I95.2 Hypotension due to drugs; S80.812A Abrasion, left lower leg, initial encounter